=== PATIENT | male | born 1955 | race Caucasian/White ===

== ENCOUNTER → 2016-09-28 | Outpatient (REF) | payer OTHER | LOC: M LAB REF 11:11 | PROVIDERS: ATTEND Urology | DX: Z08 Encounter for follow-up examination after completed treatment for malignant neoplasm (principal); Z85.46 Personal history of malignant neoplasm of prostate ==

== ENCOUNTER → 2016-11-22 | Outpatient (REF) | payer OTHER | LOC: M LABDRAWC 11:58 | PROVIDERS: ATTEND Radiology Radiation Oncology | DX: C61 Malignant neoplasm of prostate (principal) ==

== ENCOUNTER → 2016-11-30 | Outpatient (CLI) | payer OTHER ==
--- NOTE | 2016-12-01 11:19 | RADONC ---
RADIATION ONCOLOGY FOLLOWUP NOTE: DATE: 11/30/2016 CHART NO: [id number] DIAGNOSIS: Prostate cancer STAGE: Stage II B,N4vM3D1, recurrent. ECOG PERFORMANCE STATUS: 0 Mr. 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 The patient presents today reporting that he is doing quite well with no complaints at this time related to his radiation therapy or disease. He is having no urinary or bowel difficulties. No bone pain. REVIEW OF SYSTEMS: The patient's review of systems is noncontributory. Denies nausea, vomiting, fevers, chills, night sweats, diplopia, headaches, anxiety or depression, anorexia, weight loss, visual disturbances, chest pain, urinary or bowel difficulties, bone pain, or neurological problems. PHYSICAL EXAMINATION: The patient is a well-developed, well-nourished male in no acute distress. HEENT exam is normocephalic, atraumatic. Extraocular movements are intact. There is no palpable cervical, supraclavicular, infraclavicular, axillary, or inguinal lymphadenopathy present. Lungs are clear to auscultation and percussion. Heart has a regular rate and rhythm. Abdomen is benign with no hepatosplenomegaly, masses, or tenderness. Rectal examination reveals a normal anal sphincter tone. His prostate bed is smooth with no evidence of nodularity. Skeletal examination reveals no tenderness to pressure or percussion of the bony skeleton. Extremities reveal no clubbing, cyanosis, or edema. Neurologic exam is grossly intact, as is the remainder of the physical examination. ASSESSMENT: The patient is clinically HIGINIO at this time and will be seen by us again in 6 months for further followup. He will also continue be followed by his other physicians as well. cc: Mayra Washburn DO *Tommie Jernigan MD *Dr. Chalo Díaz
== END ==
LOC: M ONCR 14:55
PROVIDERS: ATTEND Radiology Radiation Oncology
DX: C61 Malignant neoplasm of prostate (principal)

== ENCOUNTER → 2017-05-24 | Outpatient (REF) | payer OTHER | LOC: M LABDRAWC 11:32 | PROVIDERS: ATTEND Radiology Radiation Oncology | DX: C61 Malignant neoplasm of prostate (principal) ==

== ENCOUNTER → 2017-05-31 | Outpatient (CLI) | payer OTHER ==
--- NOTE | 2017-06-01 11:25 | RADONC ---
RADIATION ONCOLOGY FOLLOWUP NOTE DATE: 05/31/2017 CHART NUMBER: [id number] DIAGNOSIS: Prostate cancer. STAGE: IIB, [id number], recurrent. ECOG PERFORMANCE STATUS: 0 FOLLOWUP NOTE: Mr. Dean is a very pleasant 62-year-old white male with the diagnosis of a stage IIB, V7cT1N8, moderate to poorly differentiated Nancy score 7 (3-4) adenocarcinoma of the prostate with a biochemical failure who is presenting to us for routine followup visit 2-1/2 years post completion of external beam radiation therapy. The patient presents today reporting that he is doing quite well with no complaints at this time related to his radiation therapy or disease. He has no urinary or bowel difficulties, and no bone pain. REVIEW OF SYSTEMS: The patient's review of systems is noncontributory. He denies nausea, vomiting, fevers, chills, night sweats, diplopia, headaches, anxiety or depression, anorexia, weight loss, visual disturbances, chest pain, urinary or bowel difficulties, bone pain or neurological problems. PHYSICAL EXAMINATION PHYSICAL EXAMINATION: The patient is a well-developed, well-nourished male in no acute distress. HEENT exam is normocephalic, atraumatic. Extraocular movements are intact. There is no palpable cervical, supraclavicular, infraclavicular, axillary, or inguinal lymphadenopathy present. Lungs are clear to auscultation and percussion. Heart has a regular rate and rhythm. Abdomen is benign with no hepatosplenomegaly, masses, or tenderness. Rectal examination reveals a normal anal sphincter tone. His prostate bed is smooth with no evidence of nodularity. Skeletal examination reveals no tenderness to pressure or percussion of the bony skeleton. Extremities reveal no clubbing, cyanosis, or edema. Neurologic exam is grossly intact as is the remainder of the physical examination. ASSESSMENT: The patient is clinically HIGINIO at this time and will be seen by us again in 6 months for further followup. He will also continue to be followed by his other physicians as well.
== END ==
LOC: M ONCR 15:26
PROVIDERS: ATTEND Radiology Radiation Oncology
DX: C61 Malignant neoplasm of prostate (principal)

== ENCOUNTER → 2017-10-02 | Outpatient (REF) | payer OTHER ==
[2017-10-03 12:05] LABS: PROSTATIC SPECIFIC AG MONITOR < 0.01 NG/ML (< 4.0)
== END ==
LOC: M LABDRAWC 11:19
DX: Z85.46 Personal history of malignant neoplasm of prostate (principal)

== ENCOUNTER → 2018-02-22 | Outpatient (REF) | payer OTHER ==
[2018-02-22 16:44] LABS: PROSTATIC SPECIFIC AG MONITOR < 0.01 NG/ML (< 4.0)
== END ==
LOC: M LABDRAWC 16:12
DX: C61 Malignant neoplasm of prostate (principal)

== ENCOUNTER → 2018-02-28 | Outpatient (CLI) | payer BC, OTHER | LOC: M ONCR 14:07 | DX: C61 Malignant neoplasm of prostate (principal) | CPT/HCPCS: G0463 ==

== ENCOUNTER → 2018-03-07 | Outpatient (REF) | LOC: M SMT 11:15 | DX: Z00.00 Encounter for general adult medical examination without abnormal findings (principal) ==

== ENCOUNTER → 2018-09-17 | Outpatient (CLI) | payer BC, OTHER ==
--- NOTE | 2018-09-17 11:28 | REP ---
Clinical: Shoulder pain. Technique: AP and lateral views of the left humerus. Findings: Osseous structures, joint spaces, and surrounding soft tissues appear normal for age. No acute fracture dislocation. No overt arthritic degenerative changes or obvious osseous abnormality noted. Impression: Normal left humerus radiographs. Electronically Signed by Aj Lau MD 09/17/2018 11:20 A
--- NOTE | 2018-09-17 11:29 | REP ---
Clinical: Shoulder pain. Technique: Internal rotation, external rotation, and Y view of the left shoulder. Findings: Very mild age-related cortical irregularity at the acromioclavicular joint is appreciated. The glenohumeral joint is intact and normal. Subacromial space is normal. No periarticular calcifications or loose bodies identified. The surrounding soft tissues are unremarkable. Impression: Minimal age-related changes. Electronically Signed by Aj Lau MD 09/17/2018 11:21 A
== END ==
LOC: M WUC 10:58
PROVIDERS: ATTEND Internal Medicine
DX: M25.512 Pain in left shoulder (principal)

== ENCOUNTER → 2018-09-20 | Outpatient (REF) | payer OTHER | LOC: M LABDRAWC 10:31 | PROVIDERS: ATTEND Radiology Radiation Oncology | DX: C61 Malignant neoplasm of prostate (principal) ==

== ENCOUNTER → 2018-09-25 | Outpatient (CLI) | payer BC, OTHER ==
--- NOTE | 2018-09-27 10:56 | RADONC ---
RADIATION ONCOLOGY FOLLOWUP NOTE DATE: 09/25/2018 CHART NUMBER: [id number] DIAGNOSIS: Prostate cancer. STAGE: Stage II B, U7cE6D3, recurrent. ECOG PERFORMANCE STATUS: 0. FOLLOWUP NOTE: Mr. Dean is a very pleasant 63-year-old white male with the diagnosis of a stage II B, Y0bJ6N2, moderate to poorly differentiated Kath score 7 (3+4) adenocarcinoma of the prostate who is presenting to us today for routine followup visit almost 4 years post completion of external beam radiation therapy. The patient presents today reporting that generally he is doing quite well. He has no complaints at this time related to his radiation therapy or disease. He has no urinary or bowel difficulties and no bone pain. The patient's review of systems is noncontributory. Denies nausea, vomiting, fevers, chills, night sweats, diplopia, headaches, anxiety or depression, anorexia, weight loss, visual disturbances, chest pain, urinary or bowel difficulties, bone pain, or neurological problems. PHYSICAL EXAMINATION: The patient is a well-developed, well-nourished male in no acute distress. HEENT exam is normocephalic, atraumatic. Extraocular movements are intact. There is no palpable cervical, supraclavicular, infraclavicular, axillary, or inguinal lymphadenopathy present. Lungs are clear to auscultation and percussion. Heart has a regular rate and rhythm. Abdomen is benign with no hepatosplenomegaly, masses, or tenderness. Rectal examination reveals a normal anal sphincter tone. His prostate bed is smooth with no evidence of nodularity. Skeletal examination reveals no tenderness to pressure or percussion of the bony skeleton. Extremities reveal no clubbing, cyanosis, or edema. Neurologic exam is grossly intact, as is the remainder of the physical examination. ASSESSMENT The patient is clinically HIGINIO at this time. He is being followed closely by Dr. Serrato, who will continue to be following him. In light of this close followup by his urologist, I am discharging this patient except on a p.r.n. basis. The patient does have my office number, as well as cell phone number in case I can be of any assistance to him in the future. I have instructed him to contact me if he has any new symptoms or problems and he is aware that his urologist will be referring him back to us should any future reason for radiation be indicated. cc: MD Mayra Cobian, DO
== END ==
LOC: M ONCR 08:35
PROVIDERS: ATTEND Radiology Radiation Oncology
DX: C61 Malignant neoplasm of prostate (principal)

== ENCOUNTER → 2018-10-16 | Outpatient (REF) | payer OTHER | LOC: M LABDRAWC 11:03 | PROVIDERS: ATTEND Urology | DX: Z85.46 Personal history of malignant neoplasm of prostate (principal) ==

== ENCOUNTER → 2019-05-27 | Outpatient (REF) | payer OTHER ==
[2019-05-29 08:19] LABS: ANTINUCLEAR ANTIBODIES DIRECT Negative (Negative); CYCLIC CITRULLINATED PEPTIDE 6 units (0-19); Lyme Disease IgG/IgM Antibodie <0.91 ISR (0.00-0.90); Lyme Disease IgM Ab Quantitati <0.80 index (0.00-0.79)
== END ==
LOC: M LAB REF 12:20
PROVIDERS: ATTEND Internal Medicine
DX: M25.50 Pain in unspecified joint (principal)

== ENCOUNTER → 2019-12-16 | Outpatient (CLI) | payer OTHER | LOC: M WUC 09:51 | PROVIDERS: ATTEND Urology | DX: Z85.46 Personal history of malignant neoplasm of prostate (principal) ==

== ENCOUNTER → 2020-09-15 | Outpatient (REF) | payer OTHER ==
[~2020-09-15] MED LIST: ACET-838 PO; ACET650T3 PO; ASPI81TA26 PO; ATOR1TAB21 PO; BREO1INH3 INH; ECOT81TA5 PO; ESCI10TA16 PO; GOOD81CH2 PO; MONT10TA10 PO; PERC5TAB12 PO; PROAAER10 INH; THERTAB52 PO
[2020-09-15 13:50] LABS: INR 0.97; PROTHROMBIN TIME 13.1 SECONDS (12.5-14.3)
[2020-09-15 13:51] LABS: PARTIAL THROMBOPLASTIN TIME 32.1 SECONDS (24.2-38.5)
== END ==
LOC: M LAB REF 12:43
PROVIDERS: ATTEND Internal Medicine
DX: Z01.818 Encounter for other preprocedural examination (principal); M17.11 Unilateral primary osteoarthritis, right knee

== ENCOUNTER → 2020-09-16 | Outpatient (CLI) | payer OTHER | LOC: M LABSMTC 12:49 | PROVIDERS: ATTEND Anesthesiology | DX: Z01.812 Encounter for preprocedural laboratory examination (principal); Z20.822 Contact with and (suspected) exposure to COVID-19 ==

== ENCOUNTER → 2020-09-16 | Outpatient (CLI) | payer BC, OTHER ==
[2020-09-16 14:09] LABS: BASO % 0.3 % (0.0-1.0); EOS # 0.1 10^3/uL (0.0-0.5); EOS % 0.8 % (0.0-3.0); HEMATOCRIT 45.8 % (42.0-52.0); HEMOGLOBIN 15.3 g/dl (13.5-17.5); LYMPH # 1.9 10^3/uL (1.5-5.0); LYMPH % 20.9 % (24.0-44.0); MEAN CORPUSCULAR HEMOGLOBIN 31.2 pg (27.0-33.0); MEAN CORPUSCULAR HGB CONC 33.4 g/dl (32.0-36.5); MEAN CORPUSCULAR VOLUME 93.3 fl (80.0-96.0); MONO # 0.7 10^3/uL (0.0-0.8); MONO % 7.1 % (0.0-5.0); NEUTROPHILS # 6.5 10^3/uL (1.5-8.5); NEUTROPHILS % 70.4 % (36.0-66.0); PLATELET COUNT, AUTOMATED 234 10^3/uL (150-450); RED BLOOD COUNT 4.91 10^6/uL (4.30-6.10); WHITE BLOOD COUNT 9.2 10^3/uL (4.0-10.0)
[2020-09-16 14:24] LABS: INR 0.98; PROTHROMBIN TIME 13.2 SECONDS (12.5-14.3)
[2020-09-16 14:41] LABS: ALBUMIN 4.3 GM/DL (3.2-5.2); ALT/SGPT 39 U/L (12-78); BILIRUBIN,TOTAL 0.9 MG/DL (0.2-1.0); BLOOD UREA NITROGEN 19 MG/DL (7-18); CALCIUM LEVEL 9.7 MG/DL (8.8-10.2); CARBON DIOXIDE LEVEL 33 MEQ/L (21-32); CHLORIDE LEVEL 102 MEQ/L (98-107); CREATININE FOR GFR 0.87 MG/DL (0.70-1.30); GLOMERULAR FILTRATION RATE > 60.0 (>49); GLUCOSE, FASTING 133 MG/DL (70-100); POTASSIUM SERUM 4.2 MEQ/L (3.5-5.1); SODIUM LEVEL 140 MEQ/L (136-145)
[2020-09-16 14:53] LABS: ERYTHROCYTE SEDIMENTATION RATE 3 mm/hr (0-20)
--- NOTE | 2020-09-17 05:21 | REP ---
INDICATION: UNILATERAL PRIMARY OSTEOARTHRITIS RT KNEE COMPARISON: 05/23/2016 TECHNIQUE: PA and lateral. FINDINGS: The mediastinum and cardiac silhouette are stable and without acute process. The lung hinkle are clear and without acute consolidation, effusion, or pneumothorax. The skeletal structures are stable. IMPRESSION: Chronic stable changes. No acute cardiopulmonary process. <Electronically signed by Aj Lau > 09/17/20 [id number]
== END ==
LOC: M LAB 13:16
PROVIDERS: ATTEND Orthopaedic Surgery
DX: Z01.818 Encounter for other preprocedural examination (principal); M17.11 Unilateral primary osteoarthritis, right knee

== ENCOUNTER 2020-09-21 11:24 | Inpatient (IN) | payer BC, OTHER ==
[~2020-09-21] VITALS: Ht 175.3 cm; Wt 82.3 kg
[~2020-09-21 11:24] MED LIST changes: -ACET650T3 PO; +ACETAMINOPHEN 500 MG TAB PO ONE; -ASPI81TA26 PO; -ECOT81TA5 PO; +LR 1,000 ML IV ONE; +MIDAZOLAM INJ 2MG/2ML VIAL (J2250 PER 1MG) IV PRN; -MONT10TA10 PO; +MONT5TAB2 PO; -PERC5TAB12 PO; +ceFAZolin SOD 2 GM in IV 1 EA IV ONE; +fentaNYL 100 MCG/2 ML INJECTION (J3010) IV PRN
--- OUTSIDE RECORDS SUMMARY | 2020-09-21 11:30 | CCD ---
Continuity of Care Document (CCD) Created on: 09/17/2020 Omi Dean External Reference #: [id number] : [id number] Sex: Male Author Organization Unknown Address Unknown Phone Unavailable Care Team Providers Care Edi Analyst Name Role Phone Burke Rodriguez MD AUTM [phone] Angely Arias DO AUTM Unavailable Tommie Jernigan MD AUTM [phone] [facility] [phone] [facility] [phone] Problems Active Problems Provider Date Anxiety state Mike Washburn D.O. Onset: 2011 Pure hypercholesterolemia Mike Washburn D.O. Onset: 11/04/2011 Abnormal weight gain Mike Washburn D.O. Onset: 11/03 Electrocardiogram abnormal Mike Washburn D.O. Onset: 11/04/2011 Social History Type Date Description Comments Sex Unknown ETOH Use Rarely consumes alcohol Tobacco Use Start: Unknown Patient has never smoked Allergies, Adverse Reactions, Alerts Description No Known Drug Allergies Medications Active Medications SIG Qnty Indications Ordering Provide r Date Tylenol 8 Hour Arthritis Pain 650mg Tablets ER 1 by mouth as needed every 8 hours 90tabs Angely Arias DO 03/30/2020 Montelukast Sodium 10mg Tablets Take One Tablet By Mouth AT Bedtime 30tabs Angely Arias DO 05/27 Multivitamin Men 50+ Men 50+ Table ts 1 by mouth every day Angely Arias DO 11/20/2018 Escitalopram Oxalate 10mg Tablets Take One Tablet By Mouth Every Day 30tabs Angely Arias DO 2017 Breo Ellipta 200-25mcg/Inh Aerosol Inhale 1 puff By Mouth Once Daily 60units Angely Arias DO 03/22 Proair HFA 108(90Base) mcg/Act Aer osol 2 puffs four times a day as needed 25.5gm Angely Arias DO 05/13/2016 Azelastine HCL (Nasal) 0.15% Solut ion 2 sprays each nostril at night prn Unknown Aspirin [address] 1 po daily Unknown History Medications Glucosamine Chondroitin 1500 Complex Max imum Strength 1500Com Capsules one po bid. 60caps Angely Arias DO 03/30/2020 - 09/15/2020 Medications Administered in Office Medication SIG Qnty Indications Ordering Provider Date Immunization Adminstration,1 Vaccine/Tox oid Injection Angely Arias DO 03/30/2020 Immunizations CPT Code Status Date Vaccine Lot # U-Flu Given 04/28/2020 Influenza,Unspecified [id number] Given 03/30/2020 Pneumovax 23 [id number] Given 05/25/2012 Fluvirin Virus Vaccine [id number] Given 03/01/2012 Pneumovax 23 Vital Signs Date Vital Result Comment 09/15/2020 10:03am BP Systolic 144 mmHg RT Arm BP Diastolic 72 mmHg RT Arm Heart Rate 65 /min Height 68 inches 5'8" Weight 189.00 lb O2 Saturation Level with Exercise 96 % RM Air BMI (Body Mass Index) 28.7 kg/m2 03/30/2020 10:28am BP Systolic 130 mmHg BP Diastolic 70 mmHg Heart Rate 64 /min Height 68 inches 5'8" Weight 185.00 lb O2 % BldC Oximetry 96 % RM Air BMI (Body Mass Index) 28.1 kg/m2 Results Test Acquired Date Facility Test Result H/L Range Note Prothrombin Time/Inr 09/16/2020 [facility] [address] [place] [address] [phone] Prothrombin Time 13.2 seconds Normal 12.5-14.3 Inr 0.98 Normal 1 Comprehensive Metabolic Profil 09/16/2020 [facility] [address] [place] [address] [phone] Glucose, Fasting 133 mg/dL High 70-100 Blood Urea Nitrogen 19 mg/dL High 7-18 Creatinine For GFR 0.87 mg/dL Normal 0.70-1.30 Glomerular Filtration Rate > 60.0 Normal >49 2 Sodium Level 140 mEq/L Normal 136-145 Potassium Serum 4.2 mEq/L Normal 3.5-5.1 Chloride Level 102 mEq/L Normal 98-107 Carbon Dioxide Level 33 mEq/L High 21-32 Anion Gap 5 mEq/L Low 8-16 Calcium Level 9.7 mg/dL Normal 8.8-10.2 Ast/Sgot 20 U/L Normal 7-37 Alt/SGPT 39 U/L Normal 12-78 Alkaline Phosphatase 99 U/L Normal 45-117 Bilirubin,Total 0.9 mg/dL Normal 0.2-1.0 Total Protein 7.0 GM/DL Normal 6.4-8.2 Albumin 4.3 GM/DL Normal 3.2-5.2 Albumin/Globulin Ratio 1.6 Normal CBC With Differential 09/16/[address] [id number] [phone] White Blood Count 9.2 10 Normal 4.0-10.0 Red Blood Count 4.91 10 Normal 4.30-6.10 Hemoglobin 15.3 g/dL Normal 13.5-17.5 Hematocrit 45.8 % Normal 42.0-52.0 Mean Corpuscular Volume 93.3 fl Normal 80.0-96.0 Mean Corpuscular Hemoglobin 31.2 pg Normal 27.0-33.0 Mean Corpuscular HGB Conc 33.4 g/dL Normal 32.0-36.5 Red Cell Distribution Width 11.8 % Normal 11.5-14.5 Platelet Count, Automated 234 10 Normal 150-450 Neutrophils % 70.4 % High 36.0-66.0 Lymph % 20.9 % Low 24.0-44.0 Taney % 7.1 % High 0.0-5.0 Eos % 0.8 % Normal 0.0-3.0 Baso % 0.3 % Normal 0.0-1.0 Immature Granulocyte % 0.5 % Normal 0-3.0 Nucleated Red Blood Cell % 0.0 % Normal 0-0 Neutrophils # 6.5 10 Normal 1.5-8.5 Lymph # 1.9 10 Normal 1.5-5.0 Taney # 0.7 10 Normal 0.0-0.8 Eos # 0.1 10 Normal 0.0-0.5 Baso # 0.0 10 Normal 0.0-0.2 Laboratory test finding 09/16/2020 [facility] [address] [place] [address] [phone] Erythrocyte Sedimentation Rate 3 mm/hr Normal 0 -20 PT & Aptt 09/15/2020 [facility] [address] [place] [address] [phone] Prothrombin Time 13.1 seconds Normal 12.5-14.3 Inr 0.97 Normal 3 Partial Thromboplastin Time 32.1 seconds Normal 24.2-38.5 Complete Blood Count 09/15/2020 [facility] [employer] Hand: [place] [address] [phone] WBC 8.0 x10*3/UL 4.1 - 10.9 RBC 4.93 x10*6/UL 4.20 - 6.30 Hemoglobin 15.3 g/dL 12.0 - 18.0 Hematocrit 44.7 % 37.0 - 51.0 MCV 90.6 fL 80.0 - 97.0 MCH 31.0 pg 26.0 - 32.0 MCHC 34.2 g/dL 31.0 - 38.0 RDW 12.7 % 11.6 - 13.7 PLT 217 x10*3/UL 140 - 440 MPV 7.0 FL Low 7.8 - 11.0 Lymph % 17.5 % 10.0 - 58.5 Mid % 5.5 % 1.7 - 9.3 Neut % 77.0 % 37.0 - 92.0 Lymph # 1.4 x10*3/UL 0.6 - 4.1 Mid # 0.4 x10*3/UL 0.1 - 0.6 Neut # 6.2 x10*3/UL 2.0 - 7.8 Comprehensive Chem Profile 09/15/2020 [facility] [employer] Hand: [place] [address] [phone] Glucose 101 mg/dL High 74 - 99 4 BUN 12 mg/dL 7 - 18 Creatinine 0.7 mg/dL 0.6 - 1.3 Sodium 140 mEq/L 136 - 145 Potassium 4.6 mEq/L 3.5 - 5.1 Chloride 100 mEq/L 98 - 107 Carbon Dioxide 32 mEq/L 21 - 32 Calcium 9.2 mg/dL 8.5 - 10.1 Alk. Phosphatase 100 mg/dL 46 - 116 Total Bilirubin 1.4 mg/dL High 0.2 - 1.0 5 Ast (Sgot) 24 U/L 15 - 37 Alt (SGPT) 40 U/L 12 - 78 Albumin 4.3 g/dL 3.4 - 5.0 Total Protein 7.2 g/dL 6.4 - 8.2 A/G Ratio 1.48 CALC 1.00 - 1.90 GFR >= 60 mL/min >60 GFR >= 60 mL/min >60 6 Complete Blood Count 03/30/2020 [facility] [employer] [employer] App[employer]ice Hand: [place] [address] [phone] WBC 8.1 x10*3/UL 4.1 - 10.9 RBC 4.90 x10*6/UL 4.20 - 6.30 Hemoglobin 14.9 g/dL 12.0 - 18.0 Hematocrit 44.0 % 37.0 - 51.0 MCV 89.8 fL 80.0 - 97.0 MCH 30.4 pg 26.0 - 32.0 MCHC 33.9 g/dL 31.0 - 38.0 RDW 13.0 % 11.6 - 13.7 PLT 255 x10*3/UL 140 - 440 MPV 7.8 FL 7.8 - 11.0 Lymph % 18.6 % 10.0 - 58.5 Mid % 6.0 % 1.7 - 9.3 Neut % 75.4 % 37.0 - 92.0 Lymph # 1.5 x10*3/UL 0.6 - 4.1 Mid # 0.5 x10*3/UL 0.1 - 0.6 Neut # 6.1 x10*3/UL 2.0 - 7.8 Comprehensive Chem Profile 03/30/2020 [facility] [employer] Hand: [place] [address] [phone] Glucose 101 mg/dL High 74 - 99 7 BUN 17 mg/dL 7 - 18 Creatinine 0.8 mg/dL 0.6 - 1.3 Sodium 144 mEq/L 136 - 145 Potassium 4.3 mEq/L 3.5 - 5.1 Chloride 104 mEq/L 98 - 107 Carbon Dioxide 32 mEq/L 21 - 32 Calcium 9.1 mg/dL 8.5 - 10.1 Alk. Phosphatase 82 mg/dL 46 - 116 Total Bilirubin 0.6 mg/dL 0.2 - 1.0 Ast (Sgot) 18 U/L 15 - 37 Alt (SGPT) 28 U/L 12 - 78 Albumin 3.8 g/dL 3.4 - 5.0 Total Protein 7.2 g/dL 6.4 - 8.2 A/G Ratio 1.12 CALC 1.00 - 1.90 GFR >= 60 mL/min >60 GFR >= 60 mL/min >60 8 Lipid Profile 03/30/2020 [facility] , [employer] Hand: [place] [address] [phone] Cholesterol 206 mg/dL High 131 - 200 Triglycerides 185 mg/dL High 30 - 150 HDL Cholesterol 54 mg/dL 35 - 60 LDL (Calculated) 115 CALC 50 - 159 Laboratory test finding 03/30/2020 [facility] [employer] Hand: [place] [address] [phone] Thyroid Stimulating Hormone 0.79 uIU/mL 0.3 6 - 3.74 1 THERAPUTIC HUMAN INR VALUES INDICATIONS NORMAL RANGES PROPHYLAXIS/TREATMENT OF: VENOUS THROMBOSIS 2.0-3.0 PULMONARY EMBOLISM 2.0-3.0 PREVENTION OF SYSTEMIC EMBOLISM FROM: TISSUE HEART VALVES 2.0-3.0 ACUTE MYOCARDIAL INFARCTION 2.0-3.0 VALVULAR HEART DISEASE 2.0-3.0 ATRIAL FIBRILLATION 2.0-3.0 MECHANICAL VALVES(HIGH RISK) 2.5-3.5 RECURRENT MYOCARDIAL INFARCTION 2.5-3.5 2 Units are mL/min/1.73 m2 Chronic Kidney Disease Staging per NKF: Stage I & II GFR >=60 Normal to Mildly Decreased Stage III GFR 30-59 Moderately Decreased Stage IV GFR 15-29 Severely Decreased Stage V GFR <15 Very Little GFR Left ESRD GFR <15 on FINANCIAL SERVICES PROFESSIONAL 3 THERAPUTIC HUMAN INR VALUES INDICATIONS NORMAL RANGES PROPHYLAXIS/TREATMENT OF: VENOUS THROMBOSIS 2.0-3.0 PULMONARY EMBOLISM 2.0-3.0 PREVENTION OF SYSTEMIC EMBOLISM FROM: TISSUE HEART VALVES 2.0-3.0 ACUTE MYOCARDIAL INFARCTION 2.0-3.0 VALVULAR HEART DISEASE 2.0-3.0 ATRIAL FIBRILLATION 2.0-3.0 MECHANICAL VALVES(HIGH RISK) 2.5-3.5 RECURRENT MYOCARDIAL INFARCTION 2.5-3.5 4 100-125 mg/dL PRE-DIABET ES/FASTING >126 mg/dL DIABETES/FASTING 5 NOTE: RESULT VERIFIED. 6 CHRONIC KIDNEY DISEASE STAGI NG PER NKF STAGE I & II GFR >= 60 NORMAL TO MILDLY DECREASED STAGE III GFR 30-59 MODERATELY DECREASED STAGE IV GFR 15-29 SEVERELY DECREASED STAGE V GFR <15 VERY LITTLE GFR LEFT ESRD GFR <15 ON FINANCIAL SERVICES PROFESSIONAL 7 100-125 mg/dL PRE-DIABET ES/FASTING >126 mg/dL DIABETES/FASTING 8 CHRONIC KIDNEY DISEASE STAGI NG PER NKF STAGE I & II GFR >= 60 NORMAL TO MILDLY DECREASED STAGE III GFR 30-59 MODERATELY DECREASED STAGE IV GFR 15-29 SEVERELY DECREASED STAGE V GFR <15 VERY LITTLE GFR LEFT ESRD GFR <15 ON [employer]ANCIAL SERVICES PROFESSIONAL Procedures Date Code Description Status 03/30/2020 68413 Removal Skin Tags 1-15 Completed 12/12/2011 [id number] Colonoscopy Completed Medical Devices Description No Information Available Encounters Type Date Location Provider Dx Diagnosis Office Visit 03/30/2020 10:40a [facility] Angely Arias DO L91.8 Other hypertrophic disorders of the skin M17.11 Unilateral primary osteoarth ritis, right knee J45.40 Moderate persistent asthma, uncomplicated E78.5 Hyperlipidemia, unspecified F41.1 Generalized anxiety disorder Z23 Encounter for immunization Assessments Date Code Description Provider 03/30/2020 L91.8 Other hypertrophic disorders of the skin Angely Arias DO 03/30/2020 M17.11 Unilateral primary osteoarthriti s, right knee Angely Arias DO 03/30/2020 J45.40 Moderate persistent asthma, unco mplicated Angely Arias DO 03/30/2020 E78.5 Hyperlipidemia, unspecified Chano Arias DO 03/30/2020 F41.1 Generalized anxiety disorder Naif Arias DO 03/30/2020 Z23 Encounter for immunization Angely Arias DO Plan of Treatment Future Appointment(s):* 09/30/2020 8:20 am - Angely Arias DO at [facility] 03/30/2020 - Angely Arias DO* L91.8 Other hypertrophic disorders of the skin * M17.11 Unilateral primary osteoarthritis, right knee * J45.40 Moderate persistent asthma, uncomplicated * E78.5 Hyperlipidemia, unspecified * F41.1 Generalized anxiety disorder * Z23 Encounter for immunization * All * New Medication:* Tylenol 8 Hour Arthritis Pain 650 mg - 1 by mouth as needed every 8 hours * Glucosamine Chondroitin 1500 Complex Maximum Strength 1500 Com - one po bid. * Comments:* Will see him back for a follow up visit as scheduled Functional Status Description No Information Available Mental Status Description No Information Available Referrals Description No Information Available
--- OUTSIDE RECORDS SUMMARY | 2020-09-21 11:30 | CCD | Continuity of Care Document ---
Author Author Omi RODRIGUEZ MD Organization Unknown Address [address] [place] [address], [address] [address] Phone [phone] Care Team Providers Care Change Lead Name Role Phone Angely Arias DO [facility] [phone] Problems Description No Information Available Social History Type Date Description Comments Sex Unknown ETOH Use Occasionally consumes alcohol Tobacco Use Start: Unknown Denies Smoking Smoking Status Reviewed: 10/12/18 Denies Smoking Allergies, Adverse Reactions, Alerts Description No Known Drug Allergies Medications Active Medications SIG Qnty Indications Ordering Provide r Date Hibiclens 4% Liquid use in shower once daily for 5 days before surgery 1units Ronan roe MD 09/16/2020 Mupirocin 2% Ointment apply a pea sized amount to the nasal passages 3 times a day for 5 days prior to surgery 22gm Ronan Rodriguez MD 09/16/2020 Escitalopram Oxalate 10mg Tablets 1 by mouth every day Unknown Saline Nasal [place] 0.65% Solution 2 sprays to each nostril three times a day and as needed Unknown Aspirin 81 Low Dose 81mg Chewtabs Unknown Breo Ellipta 200-25mcg/Inh Aerosol Angely Arias, DO Montelukast Sodium 10mg Tablets Angely Arias, DO Atorvastatin Calcium 20mg Tablets Unknown Acetaminophen ER 650mg Tablets ER 1 by mouth 3-4 as needed for pain Unknown Immunizations Description No Information Available Vital Signs Date Vital Result Comment 06/15/2020 8:15am Body Temperature 96.5 F 04/28/2020 8:18am Height 68 inches 5'8" Weight 180.00 lb BMI (Body Mass Index) 27.4 kg/m2 Results Test Acquired Date Facility Test Result H/L Range Note Prothrombin Time/Inr 09/16/2020 [facility] entr [address] [place] [address] (315)- - Prothrombin Time 13.2 seconds Normal 12.5-14.3 Inr 0.98 Normal 1 Comprehensive Metabolic Profil 09/16/[address] [address] (315)- - Glucose, Fasting 133 mg/dL High 70-100 Blood [...] Ratio 1.6 Normal CBC With Differential 09/16/[address] [address] (315)- - White Blood Count 9.2 10 Normal 4.0-10.0 [...] 36.0-66.0 Lymph % 20.9 % Low 24.0-44.0 [place] % 7.1 % High 0.0-5.0 Eos % 0.8 % Normal 0.0-3.0 Baso % 0.3 % Normal 0.0-1.0 Immature Granulocyte % 0.5 % Normal 0-3.0 Nucleated Red Blood Cell % 0.0 % Normal 0-0 Neutrophils # 6.5 10 Normal 1.5-8.5 Lymph # 1.9 10 Normal 1.5-5.0 [place] # 0.7 10 Normal 0.0-0.8 Eos # 0.1 10 Normal 0.0-0.5 Baso # 0.0 10 Normal 0.0-0.2 Laboratory test finding 09/16/2020 [facility] [address] [place] [address] (315)- - Erythrocyte Sedimentation Rate 3 mm/hr Normal 0-20 Laboratory test finding 09/11/2020 [facility] [address] [place] [address] (315)- - Erythrocyte Sedimentation Rate <pending> Xray 09/11/2020 [facility] nter (315)- - Chest x-ray <pending> Order 09/11/2020 [facility]ter Surgery <pending> Order 09/11/2020 [facility] EKG <pending> 1 THERAPUTIC HUMAN INR VALUES INDICATIONS NORMAL [...] Little GFR Left ESRD GFR <15 on COPY CLERK Procedures Date Code Description Status 04/28/2020 17995 X-Ray Knee Ap & Lateral W/Obliqu es Three Views Completed 04/28/2020 53722 Inject/Drain Joint/Bursa Major C ompleted Medical Devices Description No Information Available Encounters Type Date Location Provider Dx Diagnosis Office Visit 06/15/2020 8:15a [facility] Rodriguez MD M1 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, right knee Office Visit 04/28/2020 8:00a [facility] Ronan Rodriguez MD M1 7.11 Unilateral primary osteoarthritis, right knee 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 Filippo Esparza MD Plan of Treatment Future Appointment(s):* 10/02/2020 3:00 pm - Mohini Thompson at [facility] * 09/21/2020 4:45 pm - Isabel Dolan PA-C at [facility] * 09/21/2020 4:45 pm - Ronan Rodriguez MD at Surgery 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
--- OUTSIDE RECORDS SUMMARY | 2020-09-21 11:31 | CCD | Continuity of Care Document ---
Author Author Omi CARNEY Organization Unknown Address [address] [facility] [address] [place] [address] Phone [phone] Care Team Providers Care Computer Installer Name Role Phone Burke Rodriguez MD [facility] [phone] Angely Carney DO [facility] Unavailable Tommie Jernigan MD [facility] [phone] Problems Active Problems Provider Date Anxiety state [...] as needed every 8 hours 90tabs Angely Carney DO 03/30/2020 Montelukast Sodium 10mg Tablets Take One Tablet By Mouth AT Bedtime 30tabs Angely Carney DO 05/27 Multivitamin Men 50+ Men 50+ Table ts 1 by mouth every day Angely Carney DO 11/20/2018 Escitalopram Oxalate 10mg Tablets Take One Tablet By Mouth Every Day 30tabs Angely Carney DO 2017 Breo Ellipta 200-25mcg/Inh Aerosol Inhale 1 puff By Mouth Once Daily 60units Angely Carney DO 03/22 Proair HFA 108(90Base) mcg/Act Aer osol 2 puffs four times a day as needed 25.5gm Angely Carney DO 05/13/2016 Azelastine HCL (Nasal) 0.15% Solut ion 2 sprays each nostril at night prn Unknown Aspirin [address] 1 po daily Unknown History Medications Glucosamine Chondroitin 1500 Complex Max imum Strength 1500Com Capsules one po bid. 60caps Angely Carney DO 03/30/2020 - 09/15/2020 Medications Administered in Office Medication SIG Qnty Indications Ordering Provider Date Immunization Adminstration,1 Vaccine/Tox oid Injection Angely Carney DO 03/30/2020 Immunizations CPT Code Status Date Vaccine Lot # U-Flu Given 04/28/2020 Influenza,Unspecified 59186 Given 03/30/2020 Pneumovax 23 [id number] Given 05/25/2012 Fluvirin Virus Vaccine 53726 Given 03/01/2012 Pneumovax 23 Vital Signs Date [...] Date Facility Test Result H/L Range Note Complete Blood Count 03/30/2020 [facility] Electronic Data Processing Auditor: Dr Ian [place], [place] [id number] [phone] WBC 8.1 x10*3/UL 4.1 - 10.9 RBC [...] 2.0 - 7.8 Comprehensive Chem Profile 03/30/2020 [facility] Data Processing Auditor: [place] [address] [phone] Glucose 101 mg/dL High 74 - 99 1 BUN 17 mg/dL 7 - 18 Creatinine [...] mL/min >60 GFR >= 60 mL/min >60 2 Lipid Profile 03/30/2020 [facility] , Electronic Data Processing Auditor: [place] [address] [phone] Cholesterol 206 mg/dL High 131 - 200 Triglycerides 185 mg/dL High 30 - 150 HDL Cholesterol 54 mg/dL 35 - 60 LDL (Calculated) 115 CALC 50 - 159 Laboratory test finding 03/30/2020 [facility] Electronic Data Processing Auditor: [place] [address] [phone] Thyroid Stimulating Hormone 0.79 uIU/mL 0.3 6 - 3.74 1 100-125 mg/dL PRE-DIABET ES/FASTING >126 mg/dL DIABETES/FASTING 2 CHRONIC KIDNEY DISEASE STAGI NG PER NKF STAGE I & II GFR >= 60 NORMAL TO MILDLY DECREASED STAGE III GFR 30-59 MODERATELY DECREASED STAGE IV GFR 15-29 SEVERELY DECREASED STAGE V GFR <15 VERY LITTLE GFR LEFT ESRD GFR <15 ON DOUBLE BOTTOM DRIVER Procedures Date Code Description Status 03/30/2020 64156 Removal Skin Tags 1-15 Completed 12/12/2011 [id number] Colonoscopy Completed Medical Devices Description No Information Available Encounters Type Date Location Provider Dx Diagnosis Office Visit 03/30/2020 10:40a [facility] Angely Carney DO L91.8 Other hypertrophic disorders of the skin M17.11 Unilateral primary osteoarth ritis, right knee J45.40 Moderate persistent asthma, uncomplicated E78.5 Hyperlipidemia, unspecified F41.1 Generalized anxiety disorder Z23 Encounter for immunization Assessments Date Code Description Provider 03/30/2020 L91.8 Other hypertrophic disorders of the skin Angely Carney DO 03/30/2020 M17.11 Unilateral primary osteoarthriti s, right knee Angely Carney DO 03/30/2020 J45.40 Moderate persistent asthma, unco mplicated Angely Carney DO 03/30/2020 E78.5 Hyperlipidemia, unspecified Chano Carney DO 03/30/2020 F41.1 Generalized anxiety disorder Naif Carney DO 03/30/2020 Z23 Encounter for immunization Angely Carney DO Plan of Treatment Future Appointment(s):* 09/30/2020 8:20 am - [facility] DO [facility] 03/30/2020 - Angely Carney DO* L91.8 Other hypertrophic disorders of the [...]
--- OUTSIDE RECORDS SUMMARY | 2020-09-21 11:31 | CCD ---
Continuity of Care Document (CCD) Created on: 06/25/2020 Omi Dean External Reference #: [id number] : 1955 Sex: Male Author Author Omi RODRIGUEZ MD Organization Unknown Address [address] [place] [address], [address] [address] Phone [phone] Care Team Providers Care Drafter Geophysical Name Role Phone Angely Arias DO [facility] [phone] Problems Description No Information Available Social History Type Date Description Comments Sex Unknown ETOH Use Occasionally consumes alcohol Tobacco Use Start: Unknown Denies Smoking Smoking Status Reviewed: 10/12/18 Denies Smoking Allergies, Adverse Reactions, Alerts Description No Known Drug Allergies Medications Active Medications SIG Qnty Indications Ordering Provide r Date Escitalopram Oxalate 10mg Tablets 1 by mouth every day Unknown Saline Nasal [place] 0.65% Solution 2 sprays to each nostril [...] BMI (Body Mass Index) 27.4 kg/m2 Results Description No Information Available Procedures Date Code Description Status 04/28/2020 57605 X-Ray Knee Ap & Lateral W/Obliqu es Three Views Completed 04/28/2020 52865 Inject/Drain Joint/Bursa Major C ompleted Medical Devices Description No Information Available Encounters Type Date Location Provider Dx Diagnosis Office Visit 06/15/2020 8:15a Ven[facility] Rodriguez MD M1 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, right knee Office Visit 04/28/2020 8:00a Venita Rodriguez MD M1 7.11 Unilateral primary osteoarthritis, right knee 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, right knee Assessments Date Code Description Provider 06/15/2020 M17.31 Unilateral post-traumatic osteoa rthritis, right knee Ronan Rodriguez MD 04/28/2020 M17.11 Unilateral primary osteoarthriti s, right knee Ronan Rodriguez MD 04/28/2020 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
--- OUTSIDE RECORDS SUMMARY | 2020-09-21 11:31 | CCD ---
Author Author [facility] Organization [facility] Address Unknown Phone Unavailable Care Team Providers Care Activities Leader Name Role Phone Hugo, Angely DO Unavailable Unavailable Hugo, Angely DO Unavailable Unavailable Hugo, Angely DO Unavailable Unavailable Hugo, Angely DO Unavailable Unavailable Hugo, Angely DO Unavailable Unavailable Hugo, Angely DO Unavailable Unavailable Hugo, Angely DO Unavailable Unavailable Hugo, Angely DO Unavailable Unavailable Hugo, Angely DO Unavailable Unavailable Hugo, Angely DO Unavailable Unavailable Hugo, Angely DO Unavailable Unavailable Hugo, Angely DO Unavailable Unavailable Hugo, Angely DO Unavailable Unavailable Hugo, Angely DO Unavailable Unavailable Hugo, Angely DO Unavailable Unavailable Hugo, Angely DO Unavailable Unavailable Hugo, Angely DO Unavailable Unavailable Hugo, Angely DO Unavailable Unavailable Hugo, Angely DO Unavailable Unavailable Hugo, Angely DO Unavailable Unavailable Hugo, Angely DO Unavailable Unavailable Hugo, Angely DO Unavailable Unavailable Hugo, Angely DO Unavailable Unavailable Hugo, Angely DO Unavailable Unavailable Hugo, Angely DO Unavailable Unavailable Hugo, Angely DO Unavailable Unavailable Hugo, Angely DO Unavailable Unavailable Hugo, Angely DO Unavailable Unavailable Hugo, Angely DO Unavailable Unavailable Hugo, Angely DO Unavailable Unavailable Hugo, Angely DO Unavailable Unavailable Hugo, Angely DO Unavailable Unavailable Hugo, Angely DO Unavailable Unavailable Hugo, Angely DO Unavailable Unavailable Hugo, Angely DO Unavailable Unavailable Hugo, Angely DO Unavailable Unavailable Hugo, Angely DO Unavailable Unavailable Hugo, Angely DO Unavailable Unavailable Hugo, Angely DO Unavailable Unavailable Hugo, Angely DO Unavailable Unavailable Hugo, Angely DO Unavailable Unavailable Hugo, Angely DO Unavailable Unavailable Hugo, Angely DO Unavailable Unavailable Hugo, Angely DO Unavailable Unavailable Hugo, Angely DO Unavailable Unavailable Hugo, Angely DO Unavailable Unavailable Hugo, Angely DO Unavailable Unavailable Hugo, Angely DO Unavailable Unavailable Hugo, Angely DO Unavailable Unavailable Hugo, Angely DO Unavailable Unavailable Hugo, Angely DO Unavailable Unavailable Hugo, Angely DO Unavailable Unavailable Hugo, Angely DO Unavailable Unavailable Hugo, Angely DO Unavailable Unavailable Hugo, Angely DO Unavailable Unavailable Hugo, Angely DO Unavailable Unavailable Hugo, Angely DO Unavailable Unavailable Hugo, Angely DO Unavailable Unavailable Hugo, Angely DO Unavailable Unavailable Hugo, Angely DO Unavailable Unavailable Hugo, Angely DO Unavailable Unavailable Hugo, Angely DO Unavailable Unavailable Hugo, Angely DO Unavailable Unavailable Hugo, Angely DO Unavailable Unavailable Hugo, Angely DO Unavailable Unavailable Hugo, Angely DO Unavailable Unavailable Hugo, Angely DO Unavailable Unavailable Hugo, Angely DO Unavailable Unavailable Hugo, Angely DO Unavailable Unavailable Hugo, Angely DO Unavailable Unavailable Hugo, Angely DO Unavailable Unavailable Hugo, Angely DO Unavailable Unavailable Julio SYED MD Unavailable Unavailable Julio SYED MD Unavailable Unavailable Julio SYED MD Unavailable Unavailable Julio SYED MD Unavailable Unavailable Julio SYED MD Unavailable Unavailable Julio SYED MD Unavailable Unavailable Julio SYED MD Unavailable Unavailable Julio SYED MD Unavailable Unavailable Julio SYED MD Unavailable Unavailable Julio SYED MD Unavailable Unavailable Julio SYED MD Unavailable Unavailable Julio SYED MD Unavailable Unavailable Julio SYED MD Unavailable Unavailable Julio SYED MD Unavailable Unavailable Julio SYED MD Unavailable Unavailable Julio SYED MD Unavailable Unavailable Julio SYED MD Unavailable Unavailable Julio SYED MD Unavailable Unavailable Julio SYED MD Unavailable Unavailable Julio SYED MD Unavailable Unavailable MADISSOOJulio MD Unavailable Unavailable MADISSOOJulio MD Unavailable Unavailable MADISSOOJulio MD Unavailable Unavailable MADISSOOJulio MD Unavailable Unavailable MADISSOOJulio MD Unavailable Unavailable MADISSOO, Julio BUCK MD Unavailable Unavailable MADISSOOJulio MD Unavailable Unavailable MADISSOOJulio MD Unavailable Unavailable MADISSOOJulio MD Unavailable Unavailable MADISSOO, Julio BUCK MD Unavailable Unavailable MADISSOO, Julio BUCK MD Unavailable Unavailable MADISSOO, Julio BUCK MD Unavailable Unavailable MADISSOO, Julio BUCK MD Unavailable Unavailable MADISSOO, Julio BUCK MD Unavailable Unavailable MADISSOO, Julio BUCK MD Unavailable Unavailable MADISSOO, Julio BUCK MD Unavailable Unavailable MADISSOO, Julio BUCK MD Unavailable Unavailable MADISSOO, Julio BUCK MD Unavailable Unavailable MADISSOO, Julio BUCK MD Unavailable Unavailable MADISSOO, Julio BUCK MD Unavailable Unavailable MADISSOOJulio MD Unavailable Unavailable MADISSOOJulio MD Unavailable Unavailable MADISSOOuJlio MD Unavailable Unavailable MADISSOOJulio MD Unavailable Unavailable MADISSOOJulio MD Unavailable Unavailable MADISSOOJulio MD Unavailable Unavailable MADISSOOJulio MD Unavailable Unavailable MADISSOOJulio MD Unavailable Unavailable MADISSOOJulio MD Unavailable Unavailable MADISSOOJulio MD Unavailable Unavailable MADCANDIOOJulio MD Unavailable Unavailable MADCANDIOOJulio MD Unavailable Unavailable FAUSTOOOJulio MD Unavailable Unavailable MADCANDIOOJulio MD Unavailable Unavailable FAUSTOOOJulio MD Unavailable Unavailable MADCANDIOOJulio MD Unavailable Unavailable MADCANDIOOJulio MD Unavailable Unavailable MADCANDIOOJulio MD Unavailable Unavailable MADCANDIOOJulio MD Unavailable Unavailable MADCANDIOOJulio MD Unavailable Unavailable MADCANDIOOJulio MD Unavailable Unavailable MADCANDIOOJulio MD Unavailable Unavailable MADCANDIOOJulio MD Unavailable Unavailable MADCANDIOO, Julio BUCK MD Unavailable Unavailable MADCANDIOOJulio MD Unavailable Unavailable MADCANDIOOJulio MD Unavailable Unavailable MADCANDIOOJulio MD Unavailable Unavailable MADISSOOJulio MD Unavailable Unavailable MADISSOO, Julio BUCK MD Unavailable Unavailable MADISSOO, Julio BUCK MD Unavailable Unavailable MADISSOO, Julio BUCK MD Unavailable Unavailable MADISSOO, Julio BUCK MD Unavailable Unavailable MADISSOO, Julio BCUK MD Unavailable Unavailable MADISSOO, Julio BUCK MD Unavailable Unavailable MADISSOO, Julio BUCK MD Unavailable Unavailable MADISSOO, Julio BUCK MD Unavailable Unavailable MADCANDIOO, Julio BUCK MD Unavailable Unavailable FAUSTOOO, Julio BUCK MD Unavailable Unavailable FAUSTOOO, Julio BUCK MD Unavailable Unavailable FAUSTOOO, Julio BUCK MD Unavailable Unavailable FAUSTOOO, Julio BUCK MD Unavailable Unavailable Vaneenenaam, Rosendo Okeefe MD Unavailable Unavailable VaneenenaamRosendo MD Unavailable Unavailable VanRosendo fernández MD Unavailable Unavailable Vancatyam, Rosendo Okeefe MD Unavailable Unavailable VaneenerwinamRosendo MD Unavailable Unavailable Vancatyam, Rosendo Okeefe MD Unavailable Unavailable Vanjolene, Rosendo Okeefe MD Unavailable Unavailable Vancatyam, Rosendo Okeefe MD Unavailable Unavailable VanRosendo fernández MD Unavailable Unavailable VanRosendo fernández MD Unavailable Unavailable VanRosendo fernández MD Unavailable Unavailable Vaneenerwinam, Rosendo Okeefe MD Unavailable Unavailable VancatyamRosendo MD Unavailable Unavailable VaneenerwinamRosendo MD Unavailable Unavailable VanRosendo fernández MD Unavailable Unavailable VanRosendo fernández MD Unavailable Unavailable VanRosendo fernández MD Unavailable Unavailable VanRosendo fernández MD Unavailable Unavailable VanRosendo fernández MD Unavailable Unavailable VanRosendo fernández MD Unavailable Unavailable VanRosendo fernández MD Unavailable Unavailable VanRosendo fernández MD Unavailable Unavailable VanRosendo fernández MD Unavailable Unavailable VanRosendo fernández MD Unavailable Unavailable VanRosendo fernández MD Unavailable Unavailable VanRosendo fernández MD Unavailable Unavailable VancatyamRosendo MD Unavailable Unavailable VanRosendo fernández MD Unavailable Unavailable VanRosendo fernández MD Unavailable Unavailable VanRosendo fernández MD Unavailable Unavailable VanRosendo fernández MD Unavailable Unavailable VancatyamRosendo MD Unavailable Unavailable VancatyamRosendo MD Unavailable Unavailable VancatyamRosendo MD Unavailable Unavailable VanRosendo fernández MD Unavailable Unavailable VanRosendo fernández MD Unavailable Unavailable VancatyamRosendo MD Unavailable Unavailable VancatyamRosendo MD Unavailable Unavailable VaneenerwinamRosendo MD Unavailable Unavailable Vaneenenaam, Rosendo Okeefe MD Unavailable Unavailable Vaneenenaam, Rosendo Okeefe MD Unavailable Unavailable Vaneenenaam, Rosendo Okeefe MD Unavailable Unavailable Lio, N Alvarez TRANSPLANTER ORCHID Unavailable Unavailable Lio, N Alvarez TRANSPLANTER ORCHID Unavailable Unavailable Lio, N Alvarez TRANSPLANTER ORCHID Unavailable Unavailable Van Vleck, N Alvarez TRANSPLANTER ORCHID Unavailable Unavailable Van Vleck, N Alvarez TRANSPLANTER ORCHID Unavailable Unavailable Van Vleck, N Alvarez TRANSPLANTER ORCHID Unavailable Unavailable Lio, N Alvarez TRANSPLANTER ORCHID Unavailable Unavailable Lio, N Alvarez TRANSPLANTER ORCHID Unavailable Unavailable Van Vleck, N Alvarez TRANSPLANTER ORCHID Unavailable Unavailable Van Vleck, N Alvarez TRANSPLANTER ORCHID Unavailable Unavailable Lio, N Alvarez TRANSPLANTER ORCHID Unavailable Unavailable Lio, N Alvarez TRANSPLANTER ORCHID Unavailable Unavailable Lio, N Alvarez TRANSPLANTER ORCHID Unavailable Unavailable Van Vleck, N Alvarez TRANSPLANTER ORCHID Unavailable Unavailable Lio, N Alvarez TRANSPLANTER ORCHID Unavailable Unavailable Van Vleck, N Alvarez TRANSPLANTER ORCHID Unavailable Unavailable Van Vleck, N Alvarez TRANSPLANTER ORCHID Unavailable Unavailable Lio, N Alvarez TRANSPLANTER ORCHID Unavailable Unavailable Van Vleck, N Alvarez TRANSPLANTER ORCHID Unavailable Unavailable Van Vleck, N Alvarez TRANSPLANTER ORCHID Unavailable Unavailable Van Vleck, N Alvarez TRANSPLANTER ORCHID Unavailable Unavailable Lio, N Alvarez TRANSPLANTER ORCHID Unavailable Unavailable Van Vleck, N Alvarez TRANSPLANTER ORCHID Unavailable Unavailable Lio, N Alvarez TRANSPLANTER ORCHID Unavailable Unavailable Van Vleck, N Alvarez TRANSPLANTER ORCHID Unavailable Unavailable Van Vleck, N Alvarez TRANSPLANTER ORCHID Unavailable Unavailable Van Vleck, N Alvarez TRANSPLANTER ORCHID Unavailable Unavailable Van Vleck, N Alvarez TRANSPLANTER ORCHID Unavailable Unavailable Van Vleck, N Alvarez TRANSPLANTER ORCHID Unavailable Unavailable Van Vleck, N Alvarez TRANSPLANTER ORCHID Unavailable Unavailable Lio, N Alvarez TRANSPLANTER ORCHID Unavailable Unavailable [facility], SPARISIAN Unavailable Unavailable Re-disclosure Warning The records that you are about to access may contain information from federally-assisted alcohol or drug abuse programs. If such information is present, then the following federally mandated warning applies: This information has been disclosed to you from records protected by federal confidentiality rules (42 CFR part 2). The federal rules prohibit you from making any further disclosure of this information unless further disclosure is expressly permitted by the written consent of the person to whom it pertains or as otherwise permitted by 42 CFR part 2. A general authorization for the release of medical or other information is NOT sufficient for this purpose. The Federal rules restrict any use of the information to criminally investigate or prosecute any alcohol or drug abuse patient.The records that you are about to access may contain highly sensitive health information, the redisclosure of which is protected by Article 27-F of the [place] [facility] [place] [facility] law. If you continue you may have access to information: Regarding HIV / AIDS; Provided by facilities licensed or operated by the [facility] Office of Mental Health; or Provided by the [facility] Office for People With Developmental Disabilities. If such information is present, then the following [facility] mandated warning applies: This information has been disclosed to you from confidential records which are protected by state law. State law prohibits you from making any further disclosure of this information without the specific written consent of the person to whom it pertains, or as otherwise permitted by law. Any unauthorized further disclosure in violation of state law may result in a fine or nursing home sentence or both. A general authorization for the release of medical or other information is NOT sufficient authorization for further disc losure. Family History Family Member Name Family Member Gender Family Member Status Date o f Status Description Data Source(s) Unknown Male Problem [facility] ([facility]) Unknown Male Problem [facility] ([facility] ) Unknown Male Problem [facility] Unknown Unknown Problem [facility] ([facility] [place]) Encounters Encounter Providers Location Date Indications Data Source(s ) Outpatient Attender: Alvarez Vaca NP [email or web address] [id number] 12:00:00 AM EST - 07/20/2020 09:30:19 AM EST [facility] Outpatient Referrer: Alvarez Vaca NP [email or web address] 07/02/2020 12 :00:00 AM EST [facility] Outpatient Attender: Rosendo Rodriguez MD Physical Therap y 06/15/2020 08:15:00 AM EDT [facility] ([facility]) Outpatient Attender: Alvarez Vaca NP [email or web address] [id number] 09:35:23 AM EDT - 05/18/2020 10:08:07 AM EDT [facility] Outpatient Attender: Rosendo Rodriguez MD Physical Therap y 04/28/2020 08:00:00 AM EDT [facility] ([facility]) Outpatient Attender: JUVENTINO MÁRQUEZ 04/23/2020 12:02:[address] [facility] Outpatient Attender: Angely Hugo Kramer 03/30 10:40:00 AM EDT [facility] ([facility] ) Outpatient Attender: JUVENTINO [facility] 01/28/2020 07:54:[address] [facility] Outpatient Attender: [facility] 01/18/2020 12:16:[address] [facility] Outpatient Attender: HEBER Gold/ Hannah kuhn 12/24/2019 10:50:00 AM EDT [facility] ([facility]) Outpatient Attender: ABIGAILALEJANDRO [facility] 08/23/2019 09:01:[address] [facility] Outpatient Attender: ABIGAILALEJANDRO [facility] 08/23/2019 10:42:[address] [facility] Immunizations Vaccine Date Status Description Data Source(s) This CVX code allows reporting of a vacc ination when formulation is unknown (for example, when recording a Influenza vaccination when noted on a vaccination card) 04/28/2020 02:16:00 PM EDT completed MEDEN T ([facility]) pneumococcal polysaccharide PPV23 03/30/2020 11:05:00 AM EDT comple isabell MEDENT ([facility]) Medications Medication Brand Name Start Date Product Form Dose Route Admi nistrative Instructions Pharmacy Instructions Status Indications Reaction Description Data Source(s) chlorhexidine gluconate 40 MG/ML Medicated Liquid Soap [Hibi clens] Hibiclens 09/16/2020 12:00:00 AM EST active [facility] ([facility]) 2 % 09/16/2020 12:00:00 AM EST ointment 22 APPLY A PEA SIZED AMOUNT TO THE NASAL PASSAGES THREE TIMES A DAY FOR 5 DAYS PRIOR TO SURGERY APPLY A PEA SIZED AMOUNT TO THE NASAL PASSAGES THREE TIMES A DAY FOR 5 DAYS PRIOR TO SURGERY SOLD: 09/18/2020 [facility] Mupirocin 0.02 MG/MG Topical Ointment Mupirocin 09/16/2020 12:00:00 AM EST active [facility] ([facility]) 90 mcg/actuation 08/10/2020 12:00:00 AM EST HFA aerosol inha ler 8 INHALE TWO PUFFS BY MOUTH FOUR TIMES A DAY NEEDED INHALE TWO PUFFS BY MOUTH FOUR TIMES A DAY NEEDED SOLD: 08/12/2020 [facility] 90 mcg/actuation 08/10/2020 12:00:00 AM EST HFA aerosol inha ler 8 INHALE TWO PUFFS BY MOUTH FOUR TIMES A DAY NEEDED INHALE TWO PUFFS BY MOUTH FOUR TIMES A DAY NEEDED SOLD: 09/06/2020 [facility] 650 mg 08/04/2020 12:00:00 AM EST tablet extended release 90 TAKE ONE TABLET BY MOUTH EVERY 8 HOURS NEEDED TAKE ONE TABLET BY MOUTH EVERY 8 HOURS A S NEEDED SOLD: 09/06/2020 [facility] 650 mg 08/04/2020 12:00:00 AM EST tablet extended release 90 TAKE ONE TABLET BY MOUTH EVERY 8 HOURS NEEDED TAKE ONE TABLET BY MOUTH EVERY 8 HOURS A S NEEDED SOLD: 08/07/2020 [facility] 200-25 mcg/dose 07/06/2020 12:00:00 AM EST blister with mandi ce 60 INHALE 1 PUFF BY MOUTH ONCE DAILY INHALE 1 PUFF BY MOUTH ONCE DAILY SOLD: 07/08/2020 [facility] 200-25 mcg/dose 07/06/2020 12:00:00 AM EST blister with mandi ce 60 INHALE 1 PUFF BY MOUTH ONCE DAILY INHALE 1 PUFF BY MOUTH ONCE DAILY SOLD: 08/07/2020 [facility] 200-25 mcg/dose 07/06/2020 12:00:00 AM EST blister with mandi ce 60 INHALE 1 PUFF BY MOUTH ONCE DAILY INHALE 1 PUFF BY MOUTH ONCE DAILY SOLD: 09/06/2020 [facility] montelukast 10 MG Oral Tablet MONTELUKAST SODIUM 07/06/2020 12:0 0:00 AM EST tablet 30 TAKE ONE TABLET BY MOUTH AT BEDT SHIRIN TAKE ONE TABLET BY MOUTH AT BEDTIME SOLD: 07/08/2020 [facility] montelukast 10 MG Oral Tablet MONTELUKAST SODIUM 07/06/2020 12:0 0:00 AM EST tablet 30 TAKE ONE TABLET BY MOUTH AT BEDT SHIRIN TAKE ONE TABLET BY MOUTH AT BEDTIME SOLD: 09/06/2020 [facility] montelukast 10 MG Oral Tablet MONTELUKAST SODIUM 07/06/2020 12:0 0:00 AM EST tablet 30 TAKE ONE TABLET BY MOUTH AT BEDT SHIRIN TAKE ONE TABLET BY MOUTH AT BEDTIME SOLD: 08/07/2020 [facility] atorvastatin 20 MG Oral Tablet ATORVASTATIN CALCIUM 05/18/2020 1 2:00:00 AM EDT tablet 90 TAKE ONE TABLET BY MOUTH EVERY D AY TAKE ONE TABLET BY MOUTH EVERY DAY SOLD: 05/19/2020 [facility] atorvastatin 20 MG Oral Tablet ATORVASTATIN CALCIUM 05/18/2020 1 2:00:00 AM EDT tablet 90 TAKE ONE TABLET BY MOUTH EVERY D AY TAKE ONE TABLET BY MOUTH EVERY DAY SOLD: 08/16/2020 [facility] atorvastatin 20 MG Oral Tablet atorvastatin (LIPITOR) 20 MG tablet atorvastatin (LIPITOR) 20 MG tablet 05/18/2020 12:00:00 AM EDT 20 mg Oral active Take 1 tablet (20 mg total) by mouth daily [facility] 8 HR Acetaminophen 650 MG Extended Relea se Oral Tablet [Mapap] MAPAP ARTHRITIS PAIN 650 MG CR tablet MAPAP ARTHRITIS PAIN 650 MG CR tablet 04/29/2020 12:00 :00 AM EDT 650 mg Oral active Take 650 mg by mo [facility] as needed [facility] 30 ACTUAT fluticasone furoate 0.2 MG/ACT UAT / vilanterol 0.025 MG/ACTUAT Dry Powder Inhaler [Breo] BREO ELLIPTA 200-25 MCG/INH AEPB BREO ELLIPTA 200-25 MCG/INH AEPB 04/28/2020 12:00:00 AM EDT active As directed [facility] 650 mg 03/30/2020 12:00:00 AM EDT tablet extended release 90 TAKE ONE TABLET BY MOUTH EVERY 8 HOURS NEEDED TAKE ONE TABLET BY MOUTH EVERY 8 HOURS A S NEEDED SOLD: 06/07/2020 [facility] 650 mg 03/30/2020 12:00:00 AM EDT tablet extended release 90 TAKE ONE TABLET BY MOUTH EVERY 8 HOURS NEEDED TAKE ONE TABLET BY MOUTH EVERY 8 HOURS A S NEEDED SOLD: 07/08/2020 [facility] Glucosamine Chondroitin 1500 Complex Maximum Strength 03/30/2020 12:00:00 AM EDT ORAL completed [facility] ([facility]) 650 mg 03/30/2020 12:00:00 AM EDT tablet extended release 90 TAKE ONE TABLET BY MOUTH EVERY 8 HOURS NEEDED TAKE ONE TABLET BY MOUTH EVERY 8 HOURS A S NEEDED SOLD: 05/07/2020 [facility] 8 HR Acetaminophen 650 MG Extended Release Oral Tablet [Tylenol] Tylenol 8 Hour Arthritis Pain 03/30/2020 12:00:00 AM EDT ORAL active [facility] ([facility]) Immunization Adminstration,1 Vaccine/Toxoid 03/30/2020 12:00 :00 AM EDT completed [facility] ([facility]) Medication administered onsite 650 mg 03/30/2020 12:00:00 AM EDT tablet extended release 90 TAKE ONE TABLET BY MOUTH EVERY 8 HOURS NEEDED TAKE ONE TABLET BY MOUTH EVERY 8 HOURS A S NEEDED SOLD: 04/01/2020 [facility] Escitalopram 10 MG Oral Tablet ESCITALOPRAM OXALATE 01/30/2020 1 2:00:00 AM EDT tablet 30 TAKE ONE TABLET BY MOUTH EVERY D AY TAKE ONE TABLET BY MOUTH EVERY DAY SOLD: 09/16/2020 [facility] Escitalopram 10 MG Oral Tablet ESCITALOPRAM OXALATE 01/30/2020 1 2:00:00 AM EDT tablet 30 TAKE ONE TABLET BY MOUTH EVERY D AY TAKE ONE TABLET BY MOUTH EVERY DAY SOLD: 02/09/2020 [facility] Escitalopram 10 MG Oral Tablet ESCITALOPRAM OXALATE 01/30/2020 1 2:00:00 AM EDT tablet 30 TAKE ONE TABLET BY MOUTH EVERY D AY TAKE ONE TABLET BY MOUTH EVERY DAY SOLD: 03/10/2020 [facility] Escitalopram 10 MG Oral Tablet ESCITALOPRAM OXALATE 01/30/2020 1 2:00:00 AM EDT tablet 30 TAKE ONE TABLET BY MOUTH EVERY D AY TAKE ONE TABLET BY MOUTH EVERY DAY SOLD: 07/15/2020 [facility] Escitalopram 10 MG Oral Tablet ESCITALOPRAM OXALATE 01/30/2020 1 2:00:00 AM EDT tablet 30 TAKE ONE TABLET BY MOUTH EVERY D AY TAKE ONE TABLET BY MOUTH EVERY DAY SOLD: 04/12/2020 [facility] Escitalopram 10 MG Oral Tablet ESCITALOPRAM OXALATE 01/30/2020 1 2:00:00 AM EDT tablet 30 TAKE ONE TABLET BY MOUTH EVERY D AY TAKE ONE TABLET BY MOUTH EVERY DAY SOLD: 08/16/2020 [facility] Escitalopram 10 MG Oral Tablet ESCITALOPRAM OXALATE 01/30/2020 1 2:00:00 AM EDT tablet 30 TAKE ONE TABLET BY MOUTH EVERY D AY TAKE ONE TABLET BY MOUTH EVERY DAY SOLD: 06/14/2020 [facility] Escitalopram 10 MG Oral Tablet ESCITALOPRAM OXALATE 01/30/2020 1 2:00:00 AM EDT tablet 30 TAKE ONE TABLET BY MOUTH EVERY D AY TAKE ONE TABLET BY MOUTH EVERY DAY SOLD: 05/14/2020 [facility] Prednisone 10 MG Oral Tablet Prednisone 12/10/2019 12:00:00 AM EDT ORAL active [facility] ([facility] ) 10 mg 12/10/2019 12:00:00 AM EDT tablet 40 TAKE FOUR TABLETS BY MOUTH EVERY DAY FOR 4 DAYS, THEN TAKE THREE TABLETS BY MOUTH EVERY DAY FOR 4 DAYS, THEN TAKE TWO TABLETS BY MOUTH EVERY DAY FOR 4 DAYS, THEN TAKE ONE TABLET BY MOUTH EVERY DAY FOR 4 DAYS THEN STOP TAKE FOUR TABLETS BY MOUTH EVERY DAY FOR 4 DAYS, THEN TAKE THREE TABLETS BY MOUTH EVERY DAY FOR 4 DAYS, THEN TAKE TWO TABLETS BY MOUTH EVERY DAY FOR 4 DAYS, THEN TAKE ONE TABLET BY MOUTH EVERY DAY FOR 4 DAYS THEN STOP SOLD: 12/10/2019 [facility] montelukast 10 MG Oral Tablet MONTELUKAST SODIUM 12/03/2019 12:0 0:00 AM EDT tablet 30 TAKE ONE TABLET BY MOUTH AT BEDT SHIRIN TAKE ONE TABLET BY MOUTH AT BEDTIME SOLD: 12/05/2019 [facility] montelukast 10 MG Oral Tablet MONTELUKAST SODIUM 12/03/2019 12:0 0:00 AM EDT tablet 30 TAKE ONE TABLET BY MOUTH AT BEDT SHIRIN TAKE ONE TABLET BY MOUTH AT BEDTIME SOLD: 06/07/2020 [facility] 200-25 mcg/dose 12/03/2019 12:00:00 AM EDT blister with mandi ce 60 INHALE 1 PUFF BY MOUTH ONCE DAILY INHALE 1 PUFF BY MOUTH ONCE DAILY SOLD: 12/05/2019 [facility] 200-25 mcg/dose 12/03/2019 12:00:00 AM EDT blister with mandi ce 60 INHALE 1 PUFF BY MOUTH ONCE DAILY INHALE 1 PUFF BY MOUTH ONCE DAILY SOLD: 03/02/2020 [facility] montelukast 10 MG Oral Tablet MONTELUKAST SODIUM 12/03/2019 12:0 0:00 AM EDT tablet 30 TAKE ONE TABLET BY MOUTH AT BEDT SHIRIN TAKE ONE TABLET BY MOUTH AT BEDTIME SOLD: 01/30/2020 [facility] 200-25 mcg/dose 12/03/2019 12:00:00 AM EDT blister with mandi ce 60 INHALE 1 PUFF BY MOUTH ONCE DAILY INHALE 1 PUFF BY MOUTH ONCE DAILY SOLD: 05/07/2020 [facility] 200-25 mcg/dose 12/03/2019 12:00:00 AM EDT blister with mandi ce 60 INHALE 1 PUFF BY MOUTH ONCE DAILY INHALE 1 PUFF BY MOUTH ONCE DAILY SOLD: 04/01/2020 [facility] 200-25 mcg/dose 12/03/2019 12:00:00 AM EDT blister with mandi ce 60 INHALE 1 PUFF BY MOUTH ONCE DAILY INHALE 1 PUFF BY MOUTH ONCE DAILY SOLD: 01/02/2020 [facility] 200-25 mcg/dose 12/03/2019 12:00:00 AM EDT blister with mandi ce 60 INHALE 1 PUFF BY MOUTH ONCE DAILY INHALE 1 PUFF BY MOUTH ONCE DAILY SOLD: 01/30/2020 [facility] montelukast 10 MG Oral Tablet MONTELUKAST SODIUM 12/03/2019 12:0 0:00 AM EDT tablet 30 TAKE ONE TABLET BY MOUTH AT BEDT SHIRIN TAKE ONE TABLET BY MOUTH AT BEDTIME SOLD: 04/01/2020 [facility] montelukast 10 MG Oral Tablet MONTELUKAST SODIUM 12/03/2019 12:0 0:00 AM EDT tablet 30 TAKE ONE TABLET BY MOUTH AT BEDT SHIRIN TAKE ONE TABLET BY MOUTH AT BEDTIME SOLD: 01/02/2020 [facility] montelukast 10 MG Oral Tablet MONTELUKAST SODIUM 12/03/2019 12:0 0:00 AM EDT tablet 30 TAKE ONE TABLET BY MOUTH AT BEDT SHIRIN TAKE ONE TABLET BY MOUTH AT BEDTIME SOLD: 03/02/2020 [facility] montelukast 10 MG Oral Tablet MONTELUKAST SODIUM 12/03/2019 12:0 0:00 AM EDT tablet 30 TAKE ONE TABLET BY MOUTH AT BEDT SHIRIN TAKE ONE TABLET BY MOUTH AT BEDTIME SOLD: 05/07/2020 [facility] 200-25 mcg/dose 12/03/2019 12:00:00 AM EDT blister with mandi ce 60 INHALE 1 PUFF BY MOUTH ONCE DAILY INHALE 1 PUFF BY MOUTH ONCE DAILY SOLD: 06/07/2020 [facility] 1-0.05 % 08/20/2019 12:00:00 AM EST cream 45 APPLY NEEDED THREE TIMES A DAY APPLY NEEDED THREE TIMES A DAY SOLD: 08/26/2019 [facility] 1-0.05 % 08/20/2019 12:00:00 AM EST cream 45 APPLY NEEDED THREE TIMES A DAY APPLY NEEDED THREE TIMES A DAY SOLD: 10/27/2019 [facility] 1-0.05 % 08/20/2019 12:00:00 AM EST cream 45 APPLY NEEDED THREE TIMES A DAY APPLY NEEDED THREE TIMES A DAY SOLD: 09/29/2019 [facility] 50 mcg/actuation 08/12/2019 12:00:00 AM EST spray,suspension 16 SPRAY TWO SPRAYS IN EACH NOSTRIL ONCE DAILY IN THE EVENING SPRAY TWO SPRAYS IN EACH NOSTRIL ONCE DAILY IN THE EVENING SOLD: 08/13/2019 [facility] montelukast 10 MG Oral Tablet MONTELUKAST SODIUM 05/27/2019 12:0 0:00 AM EDT tablet 30 TAKE ONE TABLET BY MOUTH AT BEDT SHIRIN TAKE ONE TABLET BY MOUTH AT BEDTIME SOLD: 10/06/2019 [facility] 1-0.05 % 05/27/2019 12:00:00 AM EDT cream 45 APPLY NEEDED THREE TIMES A DAY APPLY NEEDED THREE TIMES A DAY SOLD: 07/24/2019 [facility] montelukast 10 MG Oral Tablet MONTELUKAST SODIUM 05/27/2019 12:0 0:00 AM EDT tablet 30 TAKE ONE TABLET BY MOUTH AT BEDT SHIRIN TAKE ONE TABLET BY MOUTH AT BEDTIME SOLD: 08/26/2019 [facility] montelukast 10 MG Oral Tablet MONTELUKAST SODIUM 05/27/2019 12:0 0:00 AM EDT tablet 30 TAKE ONE TABLET BY MOUTH AT BEDT SHIRIN TAKE ONE TABLET BY MOUTH AT BEDTIME SOLD: 07/24/2019 [facility] montelukast 10 MG Oral Tablet MONTELUKAST SODIUM 05/27/2019 12:0 0:00 AM EDT tablet 30 TAKE ONE TABLET BY MOUTH AT BEDT SHIRIN TAKE ONE TABLET BY MOUTH AT BEDTIME SOLD: 09/03/2019 [facility] montelukast 10 MG Oral Tablet MONTELUKAST SODIUM 05/27/2019 12:0 0:00 AM EDT tablet 30 TAKE ONE TABLET BY MOUTH AT BEDT SHIRIN TAKE ONE TABLET BY MOUTH AT BEDTIME SOLD: 11/04/2019 [facility] 200-25 mcg/dose 05/19/2019 12:00:00 AM EDT blister with mandi ce 60 INHALE 1 PUFF BY MOUTH ONCE DAILY INHALE 1 PUFF BY MOUTH ONCE DAILY SOLD: 08/13/2019 [facility] 200-25 mcg/dose 05/19/2019 12:00:00 AM EDT blister with mandi ce 60 INHALE 1 PUFF BY MOUTH ONCE DAILY INHALE 1 PUFF BY MOUTH ONCE DAILY SOLD: 10/06/2019 [facility] 200-25 mcg/dose 05/19/2019 12:00:00 AM EDT blister with mandi ce 60 INHALE 1 PUFF BY MOUTH ONCE DAILY INHALE 1 PUFF BY MOUTH ONCE DAILY SOLD: 11/04/2019 [facility] 200-25 mcg/dose 05/19/2019 12:00:00 AM EDT blister with mandi ce 60 INHALE 1 PUFF BY MOUTH ONCE DAILY INHALE 1 PUFF BY MOUTH ONCE DAILY SOLD: 09/03/2019 [facility] Escitalopram 10 MG Oral Tablet ESCITALOPRAM OXALATE 04/17/2019 1 2:00:00 AM EDT tablet 30 TAKE ONE TABLET BY MOUTH EVERY D AY TAKE ONE TABLET BY MOUTH EVERY DAY SOLD: 08/13/2019 [facility] Escitalopram 10 MG Oral Tablet ESCITALOPRAM OXALATE 04/17/2019 1 2:00:00 AM EDT tablet 30 TAKE ONE TABLET BY MOUTH EVERY D AY TAKE ONE TABLET BY MOUTH EVERY DAY SOLD: 11/04/2019 [facility] Escitalopram 10 MG Oral Tablet ESCITALOPRAM OXALATE 04/17/2019 1 2:00:00 AM EDT tablet 30 TAKE ONE TABLET BY MOUTH EVERY D AY TAKE ONE TABLET BY MOUTH EVERY DAY SOLD: 12/05/2019 [facility] Escitalopram 10 MG Oral Tablet ESCITALOPRAM OXALATE 04/17/2019 1 2:00:00 AM EDT tablet 30 TAKE ONE TABLET BY MOUTH EVERY D AY TAKE ONE TABLET BY MOUTH EVERY DAY SOLD: 10/06/2019 [facility] Escitalopram 10 MG Oral Tablet ESCITALOPRAM OXALATE 04/17/2019 1 2:00:00 AM EDT tablet 30 TAKE ONE TABLET BY MOUTH EVERY D AY TAKE ONE TABLET BY MOUTH EVERY DAY SOLD: 01/02/2020 [facility] Escitalopram 10 MG Oral Tablet ESCITALOPRAM OXALATE 04/17/2019 1 2:00:00 AM EDT tablet 30 TAKE ONE TABLET BY MOUTH EVERY D AY TAKE ONE TABLET BY MOUTH EVERY DAY SOLD: 09/03/2019 [facility] Insurance Providers Payer name Policy type / Coverage type Policy ID Covered alliance party ID Covered alliance party's relationship to yip Policy Yip Plan Information BCBS [address]IRE LANE DIV [id number] SP [id number] [employer] [id number] SP [id number] DIV [id number] SP [id number] EXCELLUS BCBS [id number] EXCELLUS BCBS [id number] Juanis YLS [id number] [place] Plan P [id number] S [id number] [employer] [place] Commercial [id number] Self [id number] [place] [facility] Health Maintenance Organization (HMO) [id number] Self [id number] [facility] [place] Health Maintenance Organization (HMO) [id number] Self [id number] [employer] [place] Commercial [id number] Self [id number] [employer] [id number] S [id number] BCBS EMPIRE [id number] S [id number] [place] [facility] [employer] Maintenance Organization (HMO) [id number] Self [id number] [place] Plan Commercial [id number] Self [id number] [employer] [id number] S [id number] BCBS EMPIRE [id number] S [id number] DIV [id number] SP [id number] [facility] [place] Health Maintenance Organization (HMO) [id number] Self [id number] [facility] [place] Health Maintenance Organization (HMO) [id number] Self [id number] [employer] [place] Commercial [id number] Self [id number] [employer] [place] Commercial [id number] Self [id number] [employer] O [id number] S [id number] [place] P [id number] S [id number] EMPIRE PLAN [facility] [place] [id number] Self [id number] [place] P [id number] S [id number] [place] Plan Health Maintenance Organization (HMO) [id number] Self [id number] [employer] [id number] SP [id number] [employer] [place] Commercial [id number] Self [id number] [place] Plan Health Maintenance Organization (HMO) [id number] Self [id number] [place] Plan [employer] Commercial [id number] Self [id number] [facility] [place] Commercial [id number] Self [id number] [facility] [place] Commercial Self [place] Plan [employer] Commercial Self BCBS EMPIRE LANE DIV [id number] SP [id number] [facility] [place] Health Maintenance Organization (HMO) Self EMPIRE (STATE EMP) O [id number] S [id number] Problems, Conditions, and Diagnoses Code Display Name Description Problem Type Effective Dates Data Source(s) E78.5 Hyperlipidemia Hyperlipidemia [id number] 05/18/2020 12:00: 00 AM EDT [facility] R07.89 Other chest pain Other chest pain Diagnosis 07/20/2020 08 :57:08 AM EST [facility] I49.3 Ventricular premature depolarization Ventricular premature depolarization Diagnosis 07/20/2020 08:57:08 AM EST [facility] E78.5 Hyperlipidemia, unspecified Hyperlipidemia, unspecifie d Diagnosis 07/20/2020 08:57:08 AM [facility] Surgeries/Procedures Procedure Description Date Indications Data Source(s) ARTHROCENTESIS ASPIR&/INJECTION MAJOR JT/BURSA 020 12:00:00 AM EDT [facility] ([facility] ) RADIOLOGIC EXAMINATION KNEE 3 VIEWS 04/28/2020 12:00:0 0 AM EDT [facility] ([facility]) REMOVAL SKN TAGS DIRECTOR NICU FIBRQ TAGS ANY AREA UP&W/15 03/30 12:00:00 AM EDT [facility] ([facility]) Colonoscopy 12/24/2019 12:00:00 AM EDT M [facility] ([facility]) Results ID Date Data Source [id number] 09/16/2020 01:30:00 PM EST [facility] ([facility]) Name Value Range Interpretation Code Description Data Joanie rce(s) Supporting Document(s) Erythrocyte sedimentation rate by Westergren method 3 mm/hr 0-20 [facility] ([facility]) ID Date Data Source [id number] 09/16/2020 01:30:00 PM EST [facility] ([facility]) Name Value Range Interpretation Code Description Data Joanie rce(s) Supporting Document(s) Hemoglobin 15.3 g/dL 13.5-17.5 [facility] ([facility]) White Blood Count 9.2 10 4.0-10.0 [facility] ([facility]) Red Blood Count 4.91 10 4.30-6.10 [facility] ([facility]) Mean Corpuscular Hemoglobin 31.2 pg 27.0-33.0 ME DENT ([facility]) Hematocrit 45.8 % 42.0-52.0 [facility] ([facility]) Mean Corpuscular Volume 93.3 fl 80.0-96.0 [facility] ([facility]) Mean Corpuscular HGB Conc 33.4 g/dL 32.0-36.5 MEDE NT ([facility]) Red Cell Distribution Width 11.8 % 11.5-14.5 [facility] ([facility]) Lymph % 20.9 % 24.0-44.0 [facility] [facility] Neutrophils % 70.4 % 36.0-66.0 [facility] ([facility]) Platelet Count, Automated 234 10 150-450 MED[facility] NT ([facility]) Eos % 0.8 % 0.0-3.0 [facility] [facility] Baso % 0.3 % 0.0-1.0 [facility] [facility] [place] % 7.1 % 0.0-5.0 [facility] [facility] Nucleated Red Blood Cell % 0.0 % 0-0 MED ENT ([facility]) Neutrophils # 6.5 10 1.5-8.5 [facility] ([facility]) Immature Granulocyte % 0.5 % 0-3.0 [facility] ([facility]) Eos # 0.1 10 0.0-0.5 [facility] [facility]) [place] # 0.7 10 0.0-0.8 [facility] ([place] [facility]) Lymph # 1.9 10 1.5-5.0 [facility] ([place] [facility]) Baso # 0.0 10 0.0-0.2 [facility] ([place] [facility]) ID Date Data Source [id number] 09/16/2020 01:30:00 PM EST [facility] ([facility]) Name Value Range Interpretation Code Description Data Joanie rce(s) Supporting Document(s) Creatinine For GFR 0.87 mg/dL 0.70-1.30 [facility] ([facility]) Blood Urea Nitrogen 19 mg/dL 7-18 [facility] ([facility]) Glucose, Fasting 133 mg/dL 70-100 [facility] ([facility]) Glomerular Filtration Rate Laboratory test result [facility] ([facility]) <content>Units are mL/min/1.73 m2</content>
<content></content>
<content>Chronic Kidney Disease Staging per NKF:</content>
<content></content>
<content>Stage I & II GFR >=60 Normal to Mildly Decreased</content>
<content>Stage III GFR 30- 59 Moderately Decreased</content>
<content>Stage IV GFR 15-29 Severely Decreased</content>
<content>Stage V GFR <15 Very Little GFR Left</content>
<content>ESRD GFR <15 on SECURITY GUARD</content>
<content></content> Sodium Level 140 meq/L 136-145 [facility] ([facility]) Potassium Serum 4.2 meq/L 3.5-5.1 [facility] ([facility]) Carbon Dioxide Level 33 meq/L 21-32 [facility] ([facility]) Chloride Level 102 meq/L 98-107 [facility] ([facility]) Anion Gap 5 meq/L 8-16 [facility] ([place] [facility]) Calcium Level 9.7 mg/dL 8.8-10.2 [facility] ([facility]) Alt/SGPT 39 U/L 12-78 [facility] ([facility]) Ast/Sgot 20 U/L 7-37 [facility] ([facility]) Bilirubin,Total 0.9 mg/dL 0.2-1.0 [facility] ([facility]) Alkaline Phosphatase 99 U/L 45-117 [facility] ([facility]) Albumin/Globulin Ratio 1.6 [facility] ([facility]) Total Protein 7.0 GM/DL 6.4-8.2 [facility] ([facility]) Albumin 4.3 GM/DL 3.2-5.2 [facility] ([facility]) ID Date Data Source [id number] 09/16/2020 01:30:00 PM EST [facility] ([facility]) Name Value Range Interpretation Code Description Data Joanie rce(s) Supporting Document(s) Inr 0.98 [facility] ([facility]) THERAPUTIC HUMAN INR VALUES INDICATIONS NORMAL RANGES PROPHYLAXIS/TREATMENT OF: VENOUS THROMBOSIS 2.0-3.0 PULMONARY EMBOLISM 2.0-3.0 PREVENTION OF SYSTEMIC EMBOLISM FROM: TISSUE HEART VALVES 2.0-3.0 ACUTE MYOCARDIAL INFARCTION 2.0-3.0 VALVULAR HEART DISEASE 2.0-3.0 ATRIAL FIBRILLATION 2.0-3.0 MECHANICAL VALVES(HIGH RISK) 2.5-3.5 RECURRENT MYOCARDIAL INFARCTION 2.5-3.5 Prothrombin Time 13.2 s 12.5-14.3 [facility] ([facility]) ID Date Data Source [id number] 09/16/2020 01:30:00 PM EST [facility] ([facility]) Name Value Range Interpretation Code Description Data Joanie rce(s) Supporting Document(s) Erythrocyte sedimentation rate by Westergren method 3 mm/hr 0-20 [facility] ([facility]) ID Date Data Source [id number] 09/16/2020 01:30:00 PM EST [facility] ([facility]) Name Value Range Interpretation Code Description Data Joanie rce(s) Supporting Document(s) White Blood Count 9.2 10 4.0-10.0 [facility] ([facility]) Hemoglobin 15.3 g/dL 13.5-17.5 [facility] ([facility]) Red Blood Count 4.91 10 4.30-6.10 [facility] ([facility]) Mean Corpuscular Volume 93.3 fl 80.0-96.0 M EDENT ([facility]) Mean Corpuscular Hemoglobin 31.2 pg 27.0-33.0 [facility] ([facility]) Hematocrit 45.8 % 42.0-52.0 [facility] ([facility]) Red Cell Distribution Width 11.8 % 11.5-14.5 [facility] ([facility]) Mean Corpuscular HGB Conc 33.4 g/dL 32.0-36.5 [facility] ([facility]) Platelet Count, Automated 234 10 150-450 [facility] ([facility]) Neutrophils % 70.4 % 36.0-66.0 [facility] ([facility]) Lymph % 20.9 % 24.0-44.0 [facility]) Eos % 0.8 % 0.0-3.0 [facility] ([facility]) [place] % 7.1 % 0.0-5.0 [facility]) Immature Granulocyte % 0.5 % 0-3.0 [facility] ([facility]) Baso % 0.3 % 0.0-1.0 [facility]) Nucleated Red Blood Cell % 0.0 % 0-0 MED [facility] ([facility]) Neutrophils # 6.5 10 1.5-8.5 [facility] ([facility]) Lymph # 1.9 10 1.5-5.0 [facility] [place] # 0.7 10 0.0-0.8 [facility] ([facility]) Eos # 0.1 10 0.0-0.5 [facility] ([facility]) Baso # 0.0 10 0.0-0.2 [facility] ([facility]) ID Date Data Source [id number] 09/16/2020 01:30:00 PM EST [facility] ([facility]) Name Value Range Interpretation Code Description Data Joanie rce(s) Supporting Document(s) Glucose, Fasting 133 mg/dL 70-100 [facility] ([facility]) Creatinine For GFR 0.87 mg/dL 0.70-1.30 [facility] ([facility]) Blood Urea Nitrogen 19 mg/dL 7-18 [facility] ([facility]) Sodium Level 140 meq/L 136-145 [facility] ([facility]) Potassium Serum 4.2 meq/L 3.5-5.1 [facility] ([facility]) Glomerular Filtration Rate Laboratory test result [facility] ([facility]) <content>Units are mL/min/1.73 m2</content>
<content></content>
<content>Chronic Kidney Disease Staging per NKF:</content>
<content></content>
<content>Stage I & II GFR >=60 Normal to Mildly Decreased</content>
<content>Stage III GFR 30- 59 Moderately Decreased</content>
<content>Stage IV GFR 15-29 Severely Decreased</content>
<content>Stage V GFR <15 Very Little GFR Left</content>
<content>ESRD GFR <15 on SECURITY GUARD</content>
<content></content> Carbon Dioxide Level 33 meq/L 21-32 [facility] ([facility]) Chloride Level 102 meq/L 98-107 [facility] ([facility]) Calcium Level 9.7 mg/dL 8.8-10.2 [facility] ([facility]) Ast/Sgot 20 U/L 7-37 [facility] ([facility]) Anion Gap 5 meq/L 8-16 [facility] ([facility]) Bilirubin,Total 0.9 mg/dL 0.2-1.0 [facility] ([facility]) Alkaline Phosphatase 99 U/L 45-117 [facility] ([facility]) Alt/SGPT 39 U/L 12-78 [facility] ([facility]) Albumin 4.3 GM/DL 3.2-5.2 [facility] ([facility]) Total Protein 7.0 GM/DL 6.4-8.2 [facility] ([facility]) Albumin/Globulin Ratio 1.6 [facility] ([facility]) ID Date Data Source [id number] 09/16/2020 01:30:00 PM EST [facility] ([facility]) Name Value Range Interpretation Code Description Data Joanie rce(s) Supporting Document(s) Inr 0.98 [facility] ([facility]) THERAPUTIC HUMAN INR VALUES INDICATIONS NORMAL RANGES PROPHYLAXIS/TREATMENT OF: VENOUS THROMBOSIS 2.0-3.0 PULMONARY EMBOLISM 2.0-3.0 PREVENTION OF SYSTEMIC EMBOLISM FROM: TISSUE HEART VALVES 2.0-3.0 ACUTE MYOCARDIAL INFARCTION 2.0-3.0 VALVULAR HEART DISEASE 2.0-3.0 ATRIAL FIBRILLATION 2.0-3.0 MECHANICAL VALVES(HIGH RISK) 2.5-3.5 RECURRENT MYOCARDIAL INFARCTION 2.5-3.5 Prothrombin Time 13.2 s 12.5-14.3 [facility] ([facility]) ID Date Data Source [id number] 09/16/2020 12:00:00 PM EST [facility] Name Value Range Interpretation Code Description Data Joanie rce(s) Supporting Document(s) SARS coronavirus 2 RNA Not Detected [facility] This lab was ordered by [facility] and reported by [facility]. ID Date Data Source [id number] 09/15/2020 10:55:00 AM EST [facility] ([facility]) Name Value Range Interpretation Code Description Data Joanie rce(s) Supporting Document(s) Prothrombin Time 13.1 s 12.5-14.3 [facility] ([facility]) Inr 0.97 [facility] ([place] [facility]) THERAPUTIC HUMAN INR VALUES INDICATIONS NORMAL RANGES PROPHYLAXIS/TREATMENT OF: VENOUS THROMBOSIS 2.0-3.0 PULMONARY EMBOLISM 2.0-3.0 PREVENTION OF SYSTEMIC EMBOLISM FROM: TISSUE HEART VALVES 2.0-3.0 ACUTE MYOCARDIAL INFARCTION 2.0-3.0 VALVULAR HEART DISEASE 2.0-3.0 ATRIAL FIBRILLATION 2.0-3.0 MECHANICAL VALVES(HIGH RISK) 2.5-3.5 RECURRENT MYOCARDIAL INFARCTION 2.5-3.5 Partial Thromboplastin Time 32.1 s 24.2-38.5 [facility] ([facility]) ID Date Data Source [id number] 09/15/2020 10:51:00 AM EST [facility] ([facility]) Name Value Range Interpretation Code Description Data Joanie rce(s) Supporting Document(s) Glucose [Mass/volume] in Serum or Plasma 101 mg/dL 74-99 [facility] ([facility]) 100-125 mg/dL PRE-DIABETES/FASTING >126 mg/dL DIABETES/FASTING Urea nitrogen [Mass/volume] in Serum or Plasma 12 mg/dL 7-18 [facility] ([facility]) Creatinine 0.7 mg/dL 0.6-1.3 [facility] ([facility]) Sodium [Moles/volume] in Serum or Plasma 140 meq/L 136-145 [facility] ([facility]) Potassium [Moles/volume] in Serum or Plasma 4.6 meq/L 3.5-5.1 [facility] ([facility]) Carbon dioxide, total [Moles/volume] in Serum or Plasma 32 meq/L 21 -32 [facility] ([facility]) Calcium [Mass/volume] in Serum or Plasma 9.2 mg/dL 8.5-10.1 [facility] ([facility]) Chloride [Moles/volume] in Serum or Plasma 100 meq/L 98-107 [facility] ([facility]) Alkaline phosphatase isoenzyme [Units/volume] in Serum or Pl asma 100 mg/dL 46-116 [facility] ([facility]) Total Bilirubin 1.4 mg/dL 0.2-1.0 [facility] ([facility]) NOTE: RESULT VERIFIED. Aspartate aminotransferase [Enzymatic activity/volume] in Serum or Plasma 24 U/L 15-37 [facility] ([facility] ) Albumin [Mass/volume] in Serum or Plasma 4.3 g/dL 3.4-5.0 [facility] ([facility]) Alanine aminotransferase [Enzymatic activity/volume] in Seru m or Plasma 40 U/L 12-78 [facility] ([facility]) Glomerular filtration rate/1.73 sq M pre dicted among non-blacks [Volume Rate/Area] in Serum or Plasma by Creatinine-based formula (MDRD) Laboratory test result [facility] [facility] A/G Ratio 1.48 CALC 1.00-1.90 [facility] [facility]) Proteinase 3 Ab [Units/volume] in Serum 7.2 g/dL 6.4-8.2 [facility] ([facility]) Glomerular filtration rate/1.73 sq M pre dicted among blacks [Volume Rate/Area] in Serum or Plasma by Creatinine-based formula (MDRD) Laboratory test result [facility] [facility] <content>CHRONIC KIDNEY DISEASE STAGING PER NKF</content>
<content></content>
<content>STAGE I & II GFR >= 60 NORMAL TO MILDLY DECREASED</content>
<content>STAGE III GFR 30-59 MODERATELY DECREASED</content>
<content>STAGE IV GFR 15-29 SEVERELY DECREASED</content>
<content>STAGE V GFR <15 VERY LITTLE GFR LEFT</content>
<content>ESRD GFR <15 ON SECURITY GUARD</content>
<content></content> ID Date Data Source [id number] 09/15/2020 10:51:00 AM EST [facility] Name Value Range Interpretation Code Description Data Joanie rce(s) Supporting Document(s) Leukocytes [#/volume] in Blood by Automated count 8.0 x10*3/UL 4.1-10 .9 [facility] [facility] Erythrocytes [#/volume] in Blood by Automated count 4.93 x10*6/UL 4.2 0-6.30 [facility] [facility] MCV 90.6 fL 80.0-97.0 [facility] Hematocrit [Volume Fraction] of Blood by Automated count 44.7 % 3 7.0-51.0 [facility] [facility] Hemoglobin [Mass/volume] in Blood 15.3 g/dL 12.0-18.0 [facility] ([place] [facility]) MCHC 34.2 g/dL 31.0-38.0 [facility] ([facility]) MCH 31.0 pg 26.0-32.0 [facility] Erythrocyte distribution width [Ratio] by Automated count 12.7 % 11.6-13.7 [facility] [facility] Platelets [#/volume] in Blood by Automated count 217 x10*3/UL 140-440 [facility] ([facility]) Lymph % 17.5 % 10.0-58.5 [facility] [facility]) MPV 7.0 FL 7.8-11.0 [facility] [facility]) Mid % 5.5 % 1.7-9.3 [facility] [facility]) Lymph # 1.4 x10*3/UL 0.6-4.1 [facility] ([facility]) Neut % 77.0 % 37.0-92.0 [facility] [facility]) Mid # 0.4 x10*3/UL 0.1-0.6 [facility] ([facility]) Neut # 6.2 x10*3/UL 2.0-7.8 [facility] ([facility]) ID Date Data Source [id number] 09/11/2020 02:56:00 PM EST [facility] ([facility]) Name Value Range Interpretation Code Description Data Joanie rce(s) Supporting Document(s) Laboratory test finding (navigational concept) Laboratory test result [facility] ([facility]) ID Date Data Source [id number] 09/11/2020 11:04:00 AM EST [facility] ([facility]) Name Value Range Interpretation Code Description Data Joanie rce(s) Supporting Document(s) Erythrocyte sedimentation rate by Westergren method Laboratory test result [facility] ([facility]) ID Date Data Source [id number] 09/11/2020 11:00:00 AM EST [facility] ([facility]) Name Value Range Interpretation Code Description Data Joanie rce(s) Supporting Document(s) EKG Laboratory test result [facility] ([facility]) ID Date Data Source [id number] 09/11/2020 10:59:00 AM EST [facility] ([facility]) Name Value Range Interpretation Code Description Data Joanie rce(s) Supporting Document(s) Chest x-ray Laboratory test result [facility] ([facility]) ID Date Data Source [id number] 07/02/2020 03:40:48 PM EST [facility] Name Value Range Interpretation Code Description Data Joanie rce(s) Supporting Document(s) &PDF [facility] [id number] FcG [file] [id number]+TRANSPLANTER ORCHID mx9JKiOmBr5h3ttarzjWgniXsKOSia8XmWNJ22ZIMdU9Xy41UTEVAzo7aTBcGFlO0KBRCeGzP9e+mDoo b6hKV6FeBeKKITxvGNBL9F4gyzVxSuXMKiLt42HnuR J8ifZP9IbnM31HDtCVsFUflHCXsu82KMvWODpjRhd8RHCfNrHSTG34G20UuQ/N5n7P26YA5JBNzgsCMI yvePqQZcxZARSjmA1gEbS/4X/mYZILeX4fjgi6wU7KOPL6o9T4uSOltVtq7Y5l9xjwwmtrLdhz7qV7lr psbLZuyuRIlFgYy/G/5Pf21ebEL0/afUG6cMVI/plM 07Y1O95GzRT2v6n3Ix7Fyf6o3T/LQPeByrr5jt3djPjmN3Vsy2nwaQ+Gcb+811NmmC7aIOcf0eRbAcss 0kDFpSf6jRthpJjCTmAuFFoI4lN3u8uUrOeUZ9S9n+qzV1hpH8J4dFR/nzLBq5txugQDTn8KZe90K16T jtTyVQTu30F8tQ0dHhiQOG4zSS3ibB2miKXoYj8e5E X+reD5nJmN+OEK+4RA0RgFKq7Sn4THwRFAVx2osF4mY3a5+IiRTyudtSjGs4TRVn3H0cwV0JmXiP4wC2 RanTzkusrkxfezXmEuKxcgzbqNSGVqYCg08Ut7iBuwxYoxs0+M0ev0a/L8qeVxtFkApcIlujuSRjessg Vxugr8WfEYB4Or8/DB4gx4wLDWTq9Baurn5RuM28xG 1+qBtn7I4AT9+yjiklTWBYX6rHWe1ngkwOcdJ+JZY8/ySCLieOpH3/MU8XdnkFb18n/p3+SZoiiKoiiK jhoSnkeAikrTlxfTasfReooBmbrIzckArqqLzhoUwfpEwigRqc9D/mbAolePJKyjfrJraIGeAF5VWhCy LD9hrl7ZEXLvLGQrOsmWZhsbVIfjgcOkBgmMSwNgVP SyVxxYRhv3DEyoZH8Aog8wT1D4YNhvLQCGE5DltUTaNB5iO9MYA0daOGkgEk0CDnUkZ9LjzwDxODzkE5 OrNQpoXLYJWZiwETPtK8OqNONxCFYhUg0+VHeuYA4NB9VzVCJ4DPh7ZV8fhFvsYUTrQYBaSt6FCBNqMN 2hsUnsJRVvATOjEu5+PUkoZU2TpPNZV2JdjFPeVKyo M5HRZY6LCSE1YT8GiCEcUE9QyTWLU2HteAOcCp6kLNJri4RaFe6yP2XZLFJGMDOyKRoqJFtkCVTpSKx0 Z3Z5XOEzQ3CYP338cQSgoJb3Oa1aT7IXHUfFZuFzWGaxQChcUHFqSKq1E5D1XGImR0ZZV3OgCyOtndWz Y2U+ZrHmXXLLBI6GPVEKWLx1E0Q6eVShC2V6iHpJfD W2GP7IHR8FiXZauWHmr67+CaKSQaVqM6EIN4SGWB2TNIa2J7R0jJDiF9H3wJzKhCL3LB7XBD4XcKesiY EdMf8jIRowCSZ+Hj5GFj0KBxBpGG6vzn9KYMJxHQAgNkiRQnu7J9inlbd3zKHbXyO8K4P9WdS8yDZyQF 1WV3O8hTPqFWM2XHZkzPS+Ur3Mw9QuQETvVYp9M4xp EQUbLNWpCaNvpG22J++6hwwxmRA8O1j1EENFuQPylVyJiyRdV7qYJOR4q1V9AFt/Cz1NFGC6iId4rEOq XXXqEOn7rP5mnTy2ZqTxFS19AQIsOIfxtD7iXls3I4Uwc7FeBn7eSz4ixSVvWi0IJtJhZOH6ozUyLhUK JfN3zYssftlqPVZ6B6h5vAH4Zj51d5fpvxVpg6QsMs F8IZxiZTOmVsBlkzOpYEL9lzFvuK2fjpHkIh9WKXFlRFdunhGnCjVSVf3HEzIaJC21TcmxqP0atGW+DQ ogICAgICAgICAgICAgICAgICAgICAgICAgICAgICAgICAgICAgICAgICAgICAgICAgICAgICAgICAgIC AgICAgICAgICAgICAgICAgICAgICAgICAgICAgICAg ICAgICAgICAgDQogICAgICAgICAgICAgICAgICAgICAgICAgICAgICAgICAgICAgICAgICAgICAgICAg ICAgICAgICAgICAgICAgICAgICAgICAgICAgICAgICAgICAgICAgICAgICAgICAgICAgDQogICAgICAg ICAgICAgICAgICAgICAgICAgICAgICAgICAgICAgIC AgICAgICAgICAgICAgICAgICAgICAgICAgICAgICAgICAgICAgICAgICAgICAgICAgICAgICAgICAgIC AgDQogICAgICAgICAgICAgICAgICAgICAgICAgICAgICAgICAgICAgICAgICAgICAgICAgICAgICAgIC AgICAgICAgICAgICAgICAgICAgICAgICAgICAgICAg ICAgICAgICAgICAgDQogICAgICAgICAgICAgICAgICAgICAgICAgICAgICAgICAgICAgICAgICAgICAg ICAgICAgICAgICAgICAgICAgICAgICAgICAgICAgICAgICAgICAgICAgICAgICAgICAgICAgDQogICAg ICAgICAgICAgICAgICAgICAgICAgICAgICAgICAgIC AgICAgICAgICAgICAgICAgICAgICAgICAgICAgICAgICAgICAgICAgICAgICAgICAgICAgICAgICAgIC AgICAgDQogICAgICAgICAgICAgICAgICAgICAgICAgICAgICAgICAgICAgICAgICAgICAgICAgICAgIC AgICAgICAgICAgICAgICAgICAgICAgICAgICAgICAg ICAgICAgICAgICAgICAgDQogICAgICAgICAgICAgICAgICAgICAgICAgICAgICAgICAgICAgICAgICAg ICAgICAgICAgICAgICAgICAgICAgICAgICAgICAgICAgICAgICAgICAgICAgICAgICAgICAgICAgDQog ICAgICAgICAgICAgICAgICAgICAgICAgICAgICAgIC AgICAgICAgICAgICAgICAgICAgICAgICAgICAgICAgICAgICAgICAgICAgICAgICAgICAgICAgICAgIC AgICAgICAgDQogICAgICAgICAgICAgICAgICAgICAgICAgICAgICAgICAgICAgICAgICAgICAgICAgIC AgICAgICAgICAgICAgICAgICAgICAgICAgICAgICAg BEHhPHAeMSFvOCSkNRVqTNVrDEl1D7jcWUHhXRYvKM1mARp7Dp3+AQfDJtCpJEP5ijEhaY7QLO1gu5Br GMtqFCQvb4ApCPa1DH9ZUWCfSDhjNK6XSRitjv0QKNRhVFSbaIZJe7atMeAnCCL9WUPhOyvyLO7NHQYh X6zmqxXfGYVqQRCYBH6IUwMwV8OwiX66QVIKWy6+DQ dkibJeMhqEQtE0NTOcf5IlMBr0OC2XLOJgFTgoTC9RNJFgaJ3aWCgfEI1ZNtWeTYGsXDDMAcUpF24yjM KuILn3N5ZaNwSmTPWvXnlcUELwXDpuDbDoUFFgFoVaAWslXJ3+ID4+IGldCC3RJPunpwWbPEQbDc4OFW EsBVU7KSYkaZXgZUOvJACVVHqzTT9LsXQjGKN8cE5y FYypZKKxNDGuA1kTXrGoaZjvET41cUtuatHsuBIpONg+Mr4RIN9zo6PmXDq4akVnQDwjVRU9NJpkEKJd IVZfLBObMPR6GLE2JOFQFtBuLWFuWVJwEAzpUYAiCOCkuw4TLOWxWWArLxq9SiUiZLHkNHHgDCbaAOIo QDY8EES6IYDpQXIyHL3UYsUtPJHaSMPpRUKhEONcZF Iaom2GEVZjJLCgMbV4QGNzKCMfFZHhOClaVGQwLDVwEsD9CDPyMBYrXB7IRcSbWAZvZVJvKtcwYSXaBA Wsij5PFMHpKPZwCiMcRSRmJPXkYLOaXSdtIKDsMRBqCgZ1MAXxAMRmQB0SCsXmAVHgPSO3YhFqGUVgGB Tqhu7DHJCbERFkIXw3DIXsYOXzWPIoRIdpBCPnAJM1 MGWzAPUiIXYtDL3KMdMwDVLrDZN8ODSjKSMiPVOkpn5WPPLdHJObJhc7QDUkEPVoFGMhAXbcUXBwTOY9 GWa2RMPgEPYgSC6KVaAuHDWqEDB8UHMpQPCvCOHtht3SaGNnlYsnrc3WSVdZGv4BlTcgMWF4PDcaYt3n iVMxLxGyEPCTTk7HsxWfFFOaIMBETIdbULOyGNl2DN KlMWJ3TfTmCUGpCXY3XAN7HPfzZoE5MJMyRJYjXaE6EvqkArM0BSbtXvZaLLQ9XHL6HeBmU1NpXPi2CD RkZTI+HD5hXIq+Si9Rx6KwgqV2ctBpOIdmGMtlOJ1QMSYTH4CKXf== ID Date Data Source [id number] 03/30/2020 11:05:00 AM EDT [facility] Name Value Range Interpretation Code Description Data Joanie rce(s) Supporting Document(s) Thyrotropin [Units/volume] in Serum or Plasma by Detec tion limit <= 0.05 mIU/L 0.79 uIU/mL 0.36-3.74 [facility] ([facility] ) ID Date Data Source [id number] 03/30/2020 11:05:00 AM EDT [facility] ([facility]) Name Value Range Interpretation Code Description Data Joanie rce(s) Supporting Document(s) Cholesterol [Mass/volume] in Serum or Plasma 206 mg/dL 131-200 [facility] ([facility]) Cholesterol in LDL [Mass/volume] in Serum or Plasma by calcu lation 115 CALC 50-159 [facility] ([facility]) Triglyceride [Mass/volume] in Serum or Plasma 185 mg/dL 30-150 [facility] ([facility]) Cholesterol in HDL [Mass/volume] in Serum or Plasma 54 mg/dL 35-60 [facility] ([facility]) ID Date Data Source [id number] 03/30/2020 11:05:00 AM EDT [facility] Name Value Range Interpretation Code Description Data Joanie rce(s) Supporting Document(s) Urea nitrogen [Mass/volume] in Serum or Plasma 17 mg/dL 7-18 [facility] ([facility]) Glucose [Mass/volume] in Serum or Plasma 101 mg/dL 74-99 [facility] ([facility]) 100-125 mg/dL PRE-DIABETES/FASTING >126 mg/dL DIABETES/FASTING Creatinine 0.8 mg/dL 0.6-1.3 [facility] Potassium [Moles/volume] in Serum or Plasma 4.3 meq/L 3.5-5.1 [facility] ([facility]) Sodium [Moles/volume] in Serum or Plasma 144 meq/L 136-145 [facility] ([facility]) Calcium [Mass/volume] in Serum or Plasma 9.1 mg/dL 8.5-10.1 [facility] ([facility]) Carbon dioxide, total [Moles/volume] in Serum or Plasma 32 meq/L 21 -32 [facility] ([facility]) Chloride [Moles/volume] in Serum or Plasma 104 meq/L 98-107 [facility] ([facility]) Aspartate aminotransferase [Enzymatic activity/volume] in Serum or Plasma 18 U/L 15-37 [facility] ([facility] ) Total Bilirubin 0.6 mg/dL 0.2-1.0 [facility] ([facility]) Alkaline phosphatase isoenzyme [Units/volume] in Serum or Pl asma 82 mg/dL 46-116 [facility] ([facility]) Proteinase 3 Ab [Units/volume] in Serum 7.2 g/dL 6.4-8.2 [facility] ([facility]) Alanine aminotransferase [Enzymatic activity/volume] in Seru m or Plasma 28 U/L 12-78 [facility] Albumin [Mass/volume] in Serum or Plasma 3.8 g/dL 3.4-5.0 [facility] Glomerular filtration rate/1.73 sq M pre dicted among non-blacks [Volume Rate/Area] in Serum or Plasma by Creatinine-based formula (MDRD) Laboratory test result [facility] ([facility] ) A/G Ratio 1.12 CALC 1.00-1.90 [facility] ([facility]) Glomerular filtration rate/1.73 sq M pre dicted among blacks [Volume Rate/Area] in Serum or Plasma by Creatinine-based formula (MDRD) Laboratory test result [facility] ([facility]) <content>CHRONIC KIDNEY DISEASE STAGING PER NKF</content>
<content></content>
<content>STAGE I & II GFR >= 60 NORMAL TO MILDLY DECREASED</content>
<content>STAGE III GFR 30-59 MODERATELY DECREASED</content>
<content>STAGE IV GFR 15-29 SEVERELY DECREASED</content>
<content>STAGE V GFR <15 VERY LITTLE GFR LEFT</content>
<content>ESRD GFR <15 ON SECURITY GUARD</content>
<content></content> ID Date Data Source [id number] 03/30/2020 11:05:00 AM EDT [facility] Name Value Range Interpretation Code Description Data Joanie rce(s) Supporting Document(s) Leukocytes [#/volume] in Blood by Automated count 8.1 x10*3/UL 4.1-10 .9 [facility] Erythrocytes [#/volume] in Blood by Automated count 4.90 x10*6/UL 4.2 0-6.30 [facility] [facility] Hematocrit [Volume Fraction] of Blood by Automated count 44.0 % 3 7.0-51.0 [facility] [facility] MCV 89.8 fL 80.0-97.0 [facility] ([facility]) Hemoglobin [Mass/volume] in Blood 14.9 g/dL 12.0-18.0 [facility] ([facility]) MCH 30.4 pg 26.0-32.0 [facility] ([place] [facility]) Erythrocyte distribution width [Ratio] by Automated count 13.0 % 11.6-13.7 [facility] ([facility]) MCHC 33.9 g/dL 31.0-38.0 [facility] [facility] Lymph % 18.6 % 10.0-58.5 [facility] ([place] [facility]) Platelets [#/volume] in Blood by Automated count 255 x10*3/UL 140-440 [facility] ([facility]) MPV 7.8 FL 7.8-11.0 [facility] ([place] [facility]) Lymph # 1.5 x10*3/UL 0.6-4.1 [facility] ([facility]) Mid % 6.0 % 1.7-9.3 [facility] [facility] Neut % 75.4 % 37.0-92.0 [facility] ([place] [facility]) Mid # 0.5 x10*3/UL 0.1-0.6 [facility] ([facility]) Neut # 6.1 x10*3/UL 2.0-7.8 [facility] ([facility]) ID Date Data Source [id number] 12/16/2019 12:44:00 PM EDT [facility] ([facility]) Name Value Range Interpretation Code Description Data Joanie rce(s) Supporting Document(s) Prostate specific Ag [Mass/volume] in Serum or Plasma 0.05 ng/mL [facility] ([facility] [place]) The PSA assay is performed on the Prysm analyzer by LOCI sandwich chemiluminescent immunoassay and should not be compared interchangeably with other methods. It should not be used alone as a screening test or diagnosis for the presence or absence of malignant disease. Predictions of disease recurrence should not be based solely on values obtained from serial patient serum values. Prostate specific Ag [Mass/volume] in Serum or Plasma 0.5 [facility] ([facility]) ID Date Data Source [id number] 12/10/2019 08:19:00 AM EDT [facility] ([facility], ) Name Value Range Interpretation Code Description Data Joanie rce(s) Supporting Document(s) PDFReport SEE IMAGE [facility] ([facility], ) FVC-Pre 1.96 L [facility] ([facility], ) FVC-%Pred-Pre 46 L [facility] ([facility], ) FVC-Pred 4.18 L [facility] ([facility], ) Fev1-Pred 3.13 L [facility] ([facility]) Fev1-Pre 1.24 L [facility] ([facility]) FVC-LLN 3.32 L [facility] ([facility]) Fev1-%Pred-Pre 39 L [facility] ([facility]) Fev1-LLN 2.41 L [facility] ([facility], ) Fev6-Pred 3.96 L [facility] ([facility]) Fev6-LLN 3.13 L [facility] ([facility]) Fev6-Pre 1.96 L [facility] ([facility]) Ocu1yki-Myru 75 % [facility] ([facility]) Fev6-%Pred-Pre 49 L [facility] ([facility]) Wst3vbm-%Pred-Pre 84 % [facility] ([facility]) Jbi5gnf-ZJM 65 % [facility] ([facility]) Lnq2wxa-Nvc 63 % [facility] ([facility]) Xyl2irj-Ujxu 95 % [facility] ([facility]) Rov7ozr-%Pred-Pre 105 % [facility] ([facility]) Dih0yyy-Psk 100 % [facility] ([facility]) FEFMax-Pre 3.71 L/E/sec [facility] ([facility]) FEFMax-Pred 8.33 L/E/sec [facility] ([facility]) FEFMax-%Pred-Pre 44 L/E/sec [facility] ([facility]) Fct9225-Tpt 0.71 L/E/sec [facility] ([facility]) Cay7177-Hfhj 2.55 L/E/sec [facility] ([facility]) FEFMax-LLN 6.20 L/E/sec [facility] ([facility]) Cwq7543-%Pred-Pre 27 L/E/sec [facility] ([facility]) Pmw2287-MHO 1.08 L/E/sec [facility] ([facility]) ExpTime-Pre 5.97 sec [facility] ([facility]) Qcl5dnh4-Sulk 79 % [facility] ([facility]) Eoy4xzt6-%Pred-Pre 80 % [facility] ([facility]) Tog4mha0-Dji 63 % [facility] ([facility]) Lua5ltx8-WWZ 70 % [facility] ([facility]) Procedure Social History Code Duration Value Status Description Data Source(s ) Alcohol intake 07/02/2020 12:00:00 AM EST Yes completed [facility] Smoking 07/02/2020 12:00:00 AM EST Never smoker completed Never s moker [facility] Smoking 06/11/2020 12:00:00 AM EDT Patient has never smoked co mpleted Patient has never smoked [facility] ([facility]) Smoking 12/24/2019 12:00:00 AM EDT Never Smoked Cigarettes com pleted Never Smoked Cigarettes [facility] ([facility]) Vital Signs ID Date Data Source UNK Name Value Range Interpretation Code Description Data Source(s) Body mass index (BMI) [Ratio] 28.7 kg/m2 28.7 k g/m2 [facility] ([facility]) Oxygen saturation in Arterial blood by Pulse oximetry --post exerci se 96 % 96 % [facility] ([facility]) RM Air Body weight 189.00 [lb_av] 189.00 [lb_av] [facility] T ([facility]) Body height 68 [in_i] 68 [in_i] [facility] ([facility]) 5'8" Heart rate 65 /min 65 /min [facility] ([facility]) Diastolic blood pressure 72 mm[Hg] 72 mm[Hg] [facility] ([facility]) RT Arm Systolic blood pressure 144 mm[Hg] 144 mm[Hg] [facility] ([facility]) RT Arm Body mass index (BMI) [Ratio] 28.74 kg/m2 28.74 kg/m2 [facility] Body weight 85.73 kg 85.73 kg [facility] Body height 172.7 cm 172.7 cm [facility] Respiratory rate 16 /min 16 /min [facility] Heart rate 64 /min 64 /min [facility] Diastolic blood pressure 80 mm[Hg] 80 mm[Hg] [facility] Systolic blood pressure 136 mm[Hg] 136 mm[Hg] [facility] Body temperature 96.5 [degF] 96.5 [degF] [facility] Body weight 83.462 kg 83.462 kg [facility] ([facility], ) Graham body weight 148 [lb_av] 148 [lb_av] [facility] Body mass index (BMI) [Ratio] 28.8 kg/m2 28.8 k g/m2 [facility] ([facility], ) Body weight 184.00 [lb_av] 184.00 [lb_av] [facility] Body height 67 [in_i] 67 [in_i] [facility] ([facility], ) 5'7" Oxygen saturation in Arterial blood by Pulse oximetry 96 % 96 % [facility] ([facility], ) Room Air Heart rate 80 /min 80 /min [facility] ([facility], ) Diastolic blood pressure 70 mm[Hg] 70 mm[Hg] [facility] ([facility], ) Systolic blood pressure 118 mm[Hg] 118 mm[Hg] [facility] Body mass index (BMI) [Ratio] 27.4 kg/m2 27.4 k g/m2 [facility] ([facility]) Body weight 180.00 [lb_av] 180.00 [lb_av] [facility] ([facility]) Body height 68 [in_i] 68 [in_i] [facility] ([facility]) 5'8" Body mass index (BMI) [Ratio] 28.1 kg/m2 28.1 k g/m2 [facility]) Oxygen saturation in Arterial blood by Pulse oximetry 96 % 96 % [facility]) RM Air Body weight 185.00 [lb_av] 185.00 [lb_av] [facility] ([facility]) Body height 68 [in_i] 68 [in_i] [facility] ([facility]) 5'8" Heart rate 64 /min 64 /min [facility] ([facility]) Diastolic blood pressure 70 mm[Hg] 70 mm[Hg] [facility] ([facility]) Systolic blood pressure 130 mm[Hg] 130 mm[Hg] [facility] ([facility]) Body weight 84.370 kg 84.370 kg [facility] ([facility]) Graham body weight 148 [lb_av] 148 [lb_av] [facility] Body mass index (BMI) [Ratio] 29.1 kg/m2 29.1 k g/m2 [facility] ([facility]) Body weight 186.00 [lb_av] 186.00 [lb_av] [facility] Body height 67 [in_i] 67 [in_i] [facility] ([facility], ) 5'7" Oxygen saturation in Arterial blood by Pulse oximetry 97 % 97 % [facility] ([facility], ) Room Air Heart rate 44 /min 44 /min [facility] ([facility], ) Diastolic blood pressure 70 mm[Hg] 70 mm[Hg] [facility] ([facility], ) Systolic blood pressure 120 mm[Hg] 120 mm[Hg] [facility] ([facility], ) Patient Treatment Plan of Care Planned Activity Planned Date Details Description Data Source (s) atorvastatin 20 MG Oral Tablet 05/18/2020 12:00:00 AM EDT [facility] 8 HR Acetaminophen 650 MG Extended Release Oral Tablet [Mapap] 04/29/2020 12:00:00 AM EDT [facility] 30 ACTUAT fluticasone furoate 0.2 MG/ACT UAT / vilanterol 0.025 MG/ACTUAT Dry Powder Inhaler [Breo] 04/28/2020 12:00:00 AM EDT [facility]
--- OUTSIDE RECORDS SUMMARY | 2020-09-21 11:31 | CCD | Continuity of Care Document ---
Author Author Omi CARNEY Organization Unknown Address [address] [facility] [address] [place] [address] Phone [phone] Care Team Providers Care Lens Shaper Grinder Name Role Phone Burke Rodriguez MD [facility] [phone] Angely Carney DO AUT[facility] Unavailable Tommie Jernigan MD [facility] [phone] Problems Active Problems Provider Date Anxiety state [...] Vaccine Lot # U-Flu Given 04/28/2020 Influenza,Unspecified [id number] Given 03/30/2020 Pneumovax 23 [id number] Given 05/25/2012 Fluvirin Virus Vaccine [id number] Given 03/01/2012 Pneumovax 23 Vital Signs Date [...] Date Facility Test Result H/L Range Note PT & Aptt 09/15/2020 [facility] n[facility] [address] [place] [address] [phone] Prothrombin Time 13.1 seconds Normal 12.5-14.3 Inr 0.97 Normal 1 Partial Thromboplastin Time 32.1 seconds Normal 24.2-38.5 Complete Blood Count 09/15/2020 [facility] Set Up Mold Technician: [place] [address] [phone] WBC 8.0 x10*3/UL 4.1 - 10.9 RBC [...] 2.0 - 7.8 Comprehensive Chem Profile 09/15/2020 [facility] Set Up Mold Technician: [place] [address] [phone] Glucose 101 mg/dL High 74 - 99 2 BUN 12 mg/dL 7 - 18 Creatinine 0.7 mg/dL 0.6 - 1.3 Sodium 140 mEq/L 136 - 145 Potassium 4.6 mEq/L 3.5 - 5.1 Chloride 100 mEq/L 98 - 107 Carbon Dioxide 32 mEq/L 21 - 32 Calcium 9.2 mg/dL 8.5 - 10.1 Alk. Phosphatase 100 mg/dL 46 - 116 Total Bilirubin 1.4 mg/dL High 0.2 - 1.0 3 Ast (Sgot) 24 U/L 15 - 37 Alt (SGPT) 40 U/L 12 - 78 Albumin 4.3 g/dL 3.4 - 5.0 Total Protein 7.2 g/dL 6.4 - 8.2 A/G Ratio 1.48 CALC 1.00 - 1.90 GFR >= 60 mL/min >60 GFR >= 60 mL/min >60 4 Complete Blood Count 03/30/2020 [facility] Set Up Mold Technician: [place] [address] [phone] WBC 8.1 x10*3/UL 4.1 - 10.9 RBC [...] 2.0 - 7.8 Comprehensive Chem Profile 03/30/2020 [facility], Set Up Mold Technician: [place] [address] [phone] Glucose 101 mg/dL High 74 - 99 5 BUN 17 mg/dL 7 - 18 Creatinine [...] >60 GFR >= 60 mL/min >60 6 Lipid Profile 03/30/2020 [facility] , Set Up Mold Technician: [place] [address] [phone] Cholesterol 206 mg/dL High 131 - 200 Triglycerides 185 mg/dL High 30 - 150 HDL Cholesterol 54 mg/dL 35 - 60 LDL (Calculated) 115 CALC 50 - 159 Laboratory test finding 03/30/2020 [facility] milagros garnett Set Up Mold Technician: [place] [address] [phone] Thyroid Stimulating Hormone 0.79 uIU/mL 0.3 6 - 3.74 1 THERAPUTIC HUMAN INR VALUES INDICATIONS NORMAL RANGES PROPHYLAXIS/TREATMENT OF: VENOUS THROMBOSIS 2.0-3.0 PULMONARY EMBOLISM 2.0-3.0 PREVENTION OF SYSTEMIC EMBOLISM FROM: TISSUE HEART VALVES 2.0-3.0 ACUTE MYOCARDIAL INFARCTION 2.0-3.0 VALVULAR HEART DISEASE 2.0-3.0 ATRIAL FIBRILLATION 2.0-3.0 MECHANICAL VALVES(HIGH RISK) 2.5-3.5 RECURRENT MYOCARDIAL INFARCTION 2.5-3.5 2 100-125 mg/dL PRE-DIABET ES/FASTING >126 mg/dL DIABETES/FASTING 3 NOTE: RESULT VERIFIED. 4 CHRONIC KIDNEY DISEASE STAGI NG PER NKF STAGE I & II GFR >= 60 NORMAL TO MILDLY DECREASED STAGE III GFR 30-59 MODERATELY DECREASED STAGE IV GFR 15-29 SEVERELY DECREASED STAGE V GFR <15 VERY LITTLE GFR LEFT ESRD GFR <15 ON BAD CLOTH CHECKER 5 100-125 mg/dL PRE-DIABET ES/FASTING >126 mg/dL DIABETES/FASTING 6 CHRONIC KIDNEY DISEASE STAGI NG PER NKF STAGE I & II GFR >= 60 NORMAL TO MILDLY DECREASED STAGE III GFR 30-59 MODERATELY DECREASED STAGE IV GFR 15-29 SEVERELY DECREASED STAGE V GFR <15 VERY LITTLE GFR LEFT ESRD GFR <15 ON BAD CLOTH CHECKER Procedures Date Code Description Status 03/30/2020 77266 Removal Skin Tags 1-15 Completed 12/12/2011 [id number] Colonoscopy Completed Medical Devices Description No Information Available Encounters Type Date Location Provider Dx Diagnosis Office Visit 03/30/2020 10:40a [facility] Angely Carney DO L91.8 Other [...] 8:20 am - Angely Carney DO at [facility] 03/30/2020 - Angely Carney DO* L91.8 Other [...]
--- OUTSIDE RECORDS SUMMARY | 2020-09-21 11:31 | CCD | Continuity of Care Document ---
Author Author Omi CARNEY Organization Unknown Address [address] [facility] [address] [place] [address] Phone [phone] Care Team Providers Care Principal Gifts Officer Name Role Phone Burke Rodriguez MD AUTM [phone] Angely Carney DO AUTM Unavailable Tommie Jernigan MD AUTM [phone] Problems Active Problems Provider Date Anxiety state [...] Vaccine Lot # U-Flu Given 04/28/2020 Influenza,Unspecified [id number] Given 03/30/2020 Pneumovax 23 [id number] Given 05/25/2012 Fluvirin Virus Vaccine [id number] Given 03/01/2012 Pneumovax 23 Vital Signs Date [...] H/L Range Note PT & Aptt 09/15/2020 [facility] nter [address] [place] [address] [phone] Prothrombin Time 13.1 seconds Normal 12.5-14.3 Inr 0.97 Normal 1 Partial Thromboplastin Time 32.1 seconds Normal 24.2-38.5 Complete Blood Count 09/15/2020 [facility] Signal Tower Director: [place] [address] [phone] WBC 8.0 x10*3/UL 4.1 - 10.9 RBC [...] 2.0 - 7.8 Comprehensive Chem Profile 09/15/2020 [facility] Signal Tower Director: [place] [address] [phone] Glucose 101 mg/dL High 74 - 99 [...] mL/min >60 4 Complete Blood Count 03/30/2020 [facility] Signal Tower Director: [place] Ian [place] [address] [phone] WBC 8.1 x10*3/UL 4.1 - 10.9 RBC [...] 2.0 - 7.8 Comprehensive Chem Profile 03/30/2020 [facility] Signal Tower Director: [place] [address] [phone] Glucose 101 mg/dL High 74 - 99 [...] 60 mL/min >60 6 Lipid Profile 03/30/2020 [facility] , Signal Tower Director: [place] [address] [phone] Cholesterol 206 mg/dL High 131 - 200 Triglycerides 185 mg/dL High 30 - 150 HDL Cholesterol 54 mg/dL 35 - 60 LDL (Calculated) 115 CALC 50 - 159 Laboratory test finding 03/30/2020 [facility] milagros garnett Signal Tower Director: [place] [address] [phone] Thyroid Stimulating Hormone 0.79 uIU/mL 0.3 6 [...] LITTLE GFR LEFT ESRD GFR <15 ON PROCUREMENT REPRESENTATIVE 5 100-125 mg/dL PRE-DIABET ES/FASTING >126 mg/dL DIABETES/FASTING 6 CHRONIC KIDNEY DISEASE STAGI NG PER NKF STAGE I & II GFR >= 60 NORMAL TO MILDLY DECREASED STAGE III GFR 30-59 MODERATELY DECREASED STAGE IV GFR 15-29 SEVERELY DECREASED STAGE V GFR <15 VERY LITTLE GFR LEFT ESRD GFR <15 ON PROCUREMENT REPRESENTATIVE Procedures Date Code Description Status 03/30/2020 27161 Removal Skin Tags 1-15 Completed 12/12/2011 24787950 Colonoscopy Completed Medical Devices Description No Information Available Encounters Type Date Location Provider Dx Diagnosis Office Visit 03/30/2020 10:40a [facility] Angely Carney DO L91.8 Other [...] 8:20 am - Angely Carney DO at [facility] 03/30/2020 - Angely Carney DO* [...]
[2020-09-21] MEDS ORDERED: dexameTHASONE 10MG/1ML VIAL PRES.FREE (J1100 PER 1MG) As Ordered ONE (14:01)
[2020-09-21] MEDS ORDERED: ROPIvacaine 0.5% 30ML INJECTION (J2795 PER 1MG) As Ordered ONE (14:01)
[2020-09-21] MEDS ORDERED: EPINEPHrine INJ 1 MG/ML 1ML AMP As Ordered ONE ×2 (14:01→15:27)
[2020-09-21] MEDS ORDERED: fentaNYL 100 MCG/2 ML INJECTION (J3010) As Ordered ONE (14:05)
[2020-09-21] MEDS ORDERED: LIDOCAINE 2% 100MG/5ML SDV (FOR ANES.) As Ordered ONE (14:05)
[2020-09-21] MEDS ORDERED: propofoL 200 MG/20 ML VIAL As Ordered ONE ×4 (14:05→17:19)
[2020-09-21] MEDS ORDERED: ONDANSETRON 4MG/2ML VIAL As Ordered ONE (14:05)
[2020-09-21] MEDS ORDERED: MIDAZOLAM INJ 2MG/2ML VIAL (J2250 PER 1MG) As Ordered ONE (14:05)
[2020-09-21] MEDS ORDERED: ROPIvacaine 0.5% 30ML INJECTION (J2795 PER 1MG) XX ONE (15:00)
[2020-09-21] MEDS ORDERED: dexameTHASONE 10MG/1ML VIAL PRES.FREE (J1100 PER 1MG) XX ONE (15:00)
[2020-09-21] MEDS ORDERED: EPINEPHrine INJ 1 MG/ML 1ML AMP XX ONE (15:00)
[2020-09-21] MEDS ORDERED: TRANEXAMIC ACID 100 MG/ML 10ML VIAL As Ordered ONE (15:26)
[2020-09-21] MEDS ORDERED: BUPIVACAINE HCL 0.25% 10ML VIAL As Ordered ONE (15:27)
[2020-09-21] MEDS ORDERED: ceFAZolin 1GM VIAL (J0690 PER 500MG) As Ordered ONE (15:27)
[2020-09-21] MEDS ORDERED: BUPIVACAINE LIPOSOME/PF 1.3% 20ML VIAL (13.3MG/ML)(EXPAREL)(C9290 PER1MG) As Ordered ONE (15:27)
[2020-09-21] MEDS ORDERED: ONDANSETRON 4MG/2ML VIAL IV PRN ×2 (18:00→19:00)
[2020-09-21] MEDS ORDERED: oxyCODONE 5MG TAB PO PRN (18:00)
[2020-09-21] MEDS ORDERED: LR 1,000 ML IV SCH ×2 (18:00→19:00)
[2020-09-21] MEDS ORDERED: fentaNYL 100 MCG/2 ML INJECTION (J3010) IV PRN (18:00)
[2020-09-21] MEDS ORDERED: ACET650T3 PO (18:03)
[2020-09-21] MEDS ORDERED: ASPI81TA26 PO (18:03)
--- NOTE | 2020-09-21 18:13 | HPEPDOC ---
[facility] Medical History & Physical Date of Admission Sep 21, 2020 Date of Service: Sep 21, 2020 History and Physical CHIEF COMPLAINT: Medical consultation status post right knee arthroplasty HISTORY OF PRESENT ILLNESS: This is a 65-year-old male that underwent right knee total arthroplasty today I was asked to provide a medical consultation to assist with management of his chronic medical problems. Patient was seen in recovery room. Doing well complaints, happy the surgery is over this and asking for food. Denies being in any pain and is comfortable denies any chest pain shortness of breath denies abdominal pain. PAST MEDICAL/SURGICAL HISTORY: Depression Asthma Hyperlipidemia Prostate cancer SOCIAL HISTORY: Drinks alcohol socially only Denies tobacco use Denies illicit drug use FAMILY HISTORY: Reviewed and none contributory to this admission Extensive cardiac family history in mom, dad and brother ALLERGIES: Please see below. REVIEW OF SYSTEMS: 10 point review of systems complete all negative otherwise stated in HPI HOME MEDICATIONS: Please see below. PHYSICAL EXAMINATION: Constitutional: Awake and alert, in no apparent distress in PACU, pleasant mood ENT: Sclera are clear. Respiratory: Lungs CTA bilaterally. No respiratory distress. No use of accessory muscles. Cardiovascular: RRR S1 and S2 are normal, no murmur Gastrointestinal: Abdomen is soft, non distended, non tender, BS present. Musculoskeletal: No lower extremity edema. Right knee knee dressed Neurologic: No focal neurological deficit. Mental Status: A&O x3, normal affect Skin: Warm, dry LABORATORY DATA: See below. IMAGING: See chart MICROBIOLOGY: Please see below. ASSESSMENT/PLAN This is a 65-year-old male that underwent right knee total arthroplasty today I was asked to provide a medical consultation to assist with management of his chronic medical problems. # s/p right knee arthroplasty: Management per primary orthopedics. Pain control. PT/OT # depression: Continue Lexapro daily # Asthma: Continue home medications including montelukast continue a beer or inhaler as needed. # Hyperlipidemia: Continue his statin and 20 mg # prostate cancer: Continue to Follow up with urology outpatient # DVT prophylaxis: Per primary. [facility] Vital Signs Vital Signs Date Time Temp Pulse Resp B/P (MAP) Pulse Ox O2 Delivery O2 Flow Rate FiO2 09/21/20 15:25 62 18 127/73 (91) 97 Nasal Cannula 2 09/21/20 11:50 96.7 Home Medications Scheduled Aspirin (Aspirin EC) 81 Mg Tablet.dr, 81 MG PO DAILY Atorvastatin Calcium (Atorvastatin Calcium) 20 Mg Tablet, 20 MG PO QHS Escitalopram Oxalate (Escitalopram Oxalate) 10 Mg Tablet, 10 MG PO DAILY Fluticasone/Vilanterol (Breo Ellipta 200-25 Mcg INH) 1 Each Blst.w.dev, 1 PUFF INH DAILY Montelukast Sodium (Montelukast Sodium) 10 Mg Tablet, 10 MG PO QHS Multivitamin,Therapeutic (Thera-Tabs) 1 Each Tablet, 1 TAB PO DAILY Scheduled PRN Acetaminophen (Pain Reliever) 650 Mg Tablet.er, 650 MG PO Q8H PRN for PAIN Albuterol Sulfate (Proair Hfa) 8.5 Gm Hfa.aer.ad, 2 PUFF INH PRN PRN for SOB/COUGH Allergies Coded Allergies: No Known Allergies (Unverified , 09/16/20) APARNA DC MD Sep 21, 2020 17:59
--- NOTE | 2020-09-21 18:36 | RO ---
OPERATIVE NOTE DATE OF OPERATION: 09/21/2020 PREOPERATIVE DIAGNOSES: 1. Right knee tricompartmental degenerative arthritis. 2. Right knee retained guerline in the femur and the tibia. POSTOPERATIVE DIAGNOSES: 1. Right knee tricompartmental degenerative arthritis. 2. Right knee retained guerline in the femur and the tibia. PROCEDURES: 1. Right total knee arthroplasty using a size 5 Attune cruciate-retaining femoral component cemented, size 5 tibial tray, with a 6-mm rotating platform polyethylene insert, and a 35-mm polyethylene button. All components were cemented. Prosthesis was made by [employer]. It was an Attune Knee. 2. Removal of tibial staple. SURGEON: Ronan FUENTES MD ASSISTANTS: Isabel Dolan PA-C ANESTHESIA: Spinal with a right femoral nerve block. COMPLICATIONS: None. ESTIMATED BLOOD LOSS: 20 mL. SPECIMENS: Joint surface. PROCEDURE: Antibiotics were given intravenously preoperatively. A successful right femoral nerve block and then a spinal anesthetic were induced. The tourniquet was placed on the right upper thigh and not inflated. The right lower extremity was carefully prepped and draped in the usual sterile fashion, and then it was elevated, and after an appropriate time-out, the tourniquet was inflated. A longitudinal incision was made matching the previous medial curved parapatellar incision. Bovie electrocautery was used to coagulate crossing vessels down to the deep fascia. Some of the previous Ethibond sutures were removed. The arthrotomy was performed. Subperiosteal dissection on the proximal, medial, and lateral tibial plateau was performed. There was a significant amount of scar tissue and adhesions in the suprapatellar pouch, which were released and debrided, and then we were able to jose guadalupe the patella and then flex the knee. There were a surprising amount of degenerative changes, especially in the medial compartment which was eburnated with osteophytes and bare bone exposed on the femur. The drill was placed down the center of the femoral canal, followed by the intramedullary kamran. The distal femoral cutting jig was set at 9-mm resection level at 5 valgus for a right knee. The block was pinned into position. Distal femoral cut was performed. The AP sizing jig measured for a size 5 and 3 of external rotation for a right knee were dialed in. Pins were placed. The 4-in-1 block was applied. Anterior and posterior chamfer cuts performed. We then placed a sulcus osteotomy jig and performed the sulcus osteotomy. We then exposed the proximal tibia and used the extramedullary alignment jig to estimate being parallel to the mechanical axis referencing off of the medial tibial condyle at 4-mm resection level. The block was pinned into place. Secondary check with extramedullary kamran confirmed that we appeared to be parallel to the mechanical axis. Proximal tibial osteotomy thus was performed. A laminar exposure machine operator was placed medially and we performed a completion lateral meniscectomy, debriding the posterolateral osteophytes. We then placed the laminar exposure machine operator laterally and performed a completion medial meniscectomy, debriding the posteromedial osteophytes. The spacer block of 6 mm was good in flexion; however, it was quite snug in extension only. Thus, I did feel originally that the initial distal femoral cut was a bit thin, so I elected to take two more millimeters. Thus, the distal femoral jig was reapplied using the batwing device and then set back 2 mm and the distal femoral cut was performed. We then used the batwing device to reapply the 4-in-1 block, pinned it into position, and then performed the anterior and posterior chamfer cuts as well. We then trialed the spacer block and this time he had good extension with 6 mm and good stability to varus-valgus stress testing, both in flexion and in extension. We then exposed the proximal tibia, sized for a #5 tibial plateau tray, and then it was pinned into position. As we applied the reamer, just at the very bottom, it started to impact the medial tibial staple. The staple was identified in the proximal medial tibial metaphysis and then I had to use small osteotomes and a CoventrLikva stable remover to expose it and then remove the staple without difficulty. This allowed the drill to be placed and seated, followed by the broach. The trial polyethylene was then applied. Distal femoral trial applied. The knee was brought into extension, patella everted, patella osteotomy performed, sized for a 35 button, lug holes drilled, trial placed, and patella femoral tracking was anatomic. We drilled the lug holes for the femur and then removed all of the trials, copiously pulsatile lavaged and irrigated out the knee joint, as I did several times throughout the surgery. I placed Exparel in the subperiosteal tissues in the distal femur and the proximal tibia. Then, Ms. Isabel Dolan mixed the cement on the back table as I prepared the bony surfaces for cementing. She was critical to the success of this difficult procedure by helping with appropriate soft tissue retraction, helped to close the wound, helped to mix the cement, helped to prepare the patient for surgery, amongst many other tasks, to allow me to perform the operation smoothly, efficiently, and safely. Once all of the bony surfaces were thoroughly irrigated and dried, we then cemented the tibial tray, removing excess cement, placed the polyethylene, cemented the femoral component, removed excess cement, placed the knee to extension, and then cemented the patellar component and held it with a clamp with the knee in extension until the cement hardened. As we were awaiting this, I irrigated out the knee joint once again, and then placed tranexamic acid, and then began closing the apex of the arthrotomy with two #1 PDS sutures. The medial parapatellar area was closed with a single #1 PDS suture and then a double-armed #1 Stratafix used to close the capsule. I copiously irrigated and then released the tourniquet, and then closed the deep subdermal tissues with interrupted 2-0 PDS sutures. The skin was closed with guerline and covered by an Optifoam and dry sterile bulky dressing. He was then transferred to the recovery room in stable condition. There were no intraoperative complications. [facility]
--- NOTE | 2020-09-21 18:41 | REP ---
INDICATION: POST OP IN PACU COMPARISON: None. TECHNIQUE: Two views right knee. FINDINGS: Metallic fixation is seen in the distal femur. There is a total knee prosthesis present in good position. Osseous structures are intact and aligned. Metallic skin guerline are seen anteriorly. IMPRESSION: Total knee arthroplasty appears to be in good position. <Electronically signed by Gene Trujillo > 09/21/20 4850
[2020-09-21 19:00] VITALS: BP 128/65
[2020-09-21] MEDS ORDERED: MORPHINE 4 MG/ML 1ML VIAL/SYRINGE (J2270) IV PRN (19:00)
[2020-09-21] MEDS ORDERED: PERCOCET 5MG/325MG TAB PO PRN (19:00)
[2020-09-21] MEDS ORDERED: MORPHINE 2 MG/ML 1ML VIAL (J2270) IV PRN (19:00)
[2020-09-21 19:30] VITALS: BP 133/86
[2020-09-21 20:30] VITALS: BP 124/85
[2020-09-21] MEDS: ASPIRIN 81 MG ENTERIC TAB PO SCH (20:44)
[2020-09-21 21:00] VITALS: O2SAT 93
[2020-09-21 21:30] VITALS: BP 143/99
[2020-09-21 22:30] VITALS: BP 123/65
[2020-09-21] MEDS: ceFAZolin SOD 2 GM in IV 1 EA IV SCH (23:23)
[2020-09-22 02:30] VITALS: BP 122/65
[2020-09-22] MEDS: ACETAMINOPHEN TAB 650MG DOSE (2X325MG) PO PRN ×2 (03:11→10:32)
[2020-09-22 06:00] VITALS: BP 125/69
[2020-09-22] MEDS ORDERED: PERC5TAB12 PO (06:16)
[2020-09-22] MEDS ORDERED: ECOT81TA5 PO (06:16)
--- OUTSIDE RECORDS SUMMARY | 2020-09-22 06:28 | CCD | Continuity of Care Document ---
Author Author Omi CARNEY Organization Unknown Address [address] [facility] [address] [place] [address] Phone [phone] Care Team Providers Care Size Marker Name Role Phone Burke Rodriguez MD AUTM [phone] Angely Carney DO AUTM Unavailable Tommie Jernigan MD AUTM [phone] [facility] AUTM [phone] [facility] AUTM [phone] Problems Active Problems Provider Date Anxiety state [...] puff By Mouth Once Daily 60units Angely Carney,DO 03/22 Proair HFA 108(90Base) mcg/Act Aer osol 2 puffs four times a day as needed 25.5gm Angely Carney,DO 05/13/2016 Azelastine HCL (Nasal) 0.15% Solut ion 2 sprays each nostril at night prn Unknown Aspirin [address] 1 po daily Unknown History Medications Glucosamine Chondroitin 1500 Complex Max imum Strength 1500Com Capsules one po bid. 60caps Angely Carney,DO 03/30/2020 - 09/15/2020 Medications Administered in Office Medication SIG Qnty Indications Ordering Provider Date Immunization Adminstration,1 Vaccine/Tox oid Injection Angely Hugo,DO 03/30/2020 Immunizations CPT Code Status Date Vaccine Lot # U-Flu Given 04/28/2020 Influenza,Unspecified [id number] Given 03/30/2020 Pneumovax 23 [id number] Given 05/25/2012 Fluvirin Virus Vaccine [id number] Given 03/01/2012 Pneumovax 23 Vital Signs Date [...] Result H/L Range Note Prothrombin Time/Inr 09/16/2020 [facility] enter [address] [place] [address] [phone] Prothrombin Time 13.2 seconds Normal 12.5-14.3 Inr 0.98 Normal 1 Comprehensive Metabolic Profil 09/16/2020 [facility] [address] [place] [address] [phone] Glucose, Fasting 133 mg/dL High 70-100 Blood [...] Ratio 1.6 Normal CBC With Differential 09/16/[address] [address] [phone] White Blood Count 9.2 10 Normal 4.0-10.0 [...] 36.0-66.0 Lymph % 20.9 % Low 24.0-44.0 [place] % 7.1 % High 0.0-5.0 Eos % 0.8 % Normal 0.0-3.0 Baso % 0.3 % Normal 0.0-1.0 Immature Granulocyte % 0.5 % Normal 0-3.0 Nucleated Red Blood Cell % 0.0 % Normal 0-0 Neutrophils # 6.5 10 Normal 1.5-8.5 Lymph # 1.9 10 Normal 1.5-5.0 [place] # 0.7 10 Normal 0.0-0.8 Eos # 0.1 10 Normal 0.0-0.5 Baso # 0.0 10 Normal 0.0-0.2 Laboratory test finding 09/16/2020 [facility] [address] [place] [address] [phone] Erythrocyte Sedimentation Rate 3 mm/hr Normal 0 -20 PT & Aptt 09/15/2020 [facility] nter [address] [place] [address] [phone] Prothrombin Time 13.1 seconds Normal 12.5-14.3 Inr 0.97 Normal 3 Partial Thromboplastin Time 32.1 seconds Normal 24.2-38.5 Complete Blood Count 09/15/2020 [facility] [employer] [facility] milagros monge Director Sales Training: [place] [address] [phone] WBC 8.0 x10*3/UL 4.1 - 10.9 RBC [...] 2.0 - 7.8 Comprehensive Chem Profile 09/15/2020 [facility] Berry Director Sales Training: [place] [address] [phone] Glucose 101 mg/dL High 74 - 99 [...] mL/min >60 6 Complete Blood Count 03/30/2020 [facility] [employer] [facility] Director Sales Training: [place] [address] [phone] WBC 8.1 x10*3/UL 4.1 - 10.9 RBC [...] 2.0 - 7.8 Comprehensive Chem Profile 03/30/2020 [facility] Director Sales Training: [place] [address] [phone] Glucose 101 mg/dL High 74 - 99 [...] 60 mL/min >60 8 Lipid Profile 03/30/2020 [facility] , Director Sales Training: [place] [address] [phone] Cholesterol 206 mg/dL High 131 - 200 Triglycerides 185 mg/dL High 30 - 150 HDL Cholesterol 54 mg/dL 35 - 60 LDL (Calculated) 115 CALC 50 - 159 Laboratory test finding 03/30/2020 [facility] [employer] [facility] Director Sales Training: [place] [address] [phone] Thyroid Stimulating Hormone 0.79 uIU/mL 0.3 6 [...] Little GFR Left ESRD GFR <15 on DECORATIVE CUTTING MACHINE TENDER 3 THERAPUTIC HUMAN INR VALUES INDICATIONS NORMAL [...] LITTLE GFR LEFT ESRD GFR <15 ON DECORATIVE CUTTING MACHINE TENDER 7 100-125 mg/dL PRE-DIABET ES/FASTING >126 mg/dL DIABETES/FASTING 8 CHRONIC KIDNEY DISEASE STAGI NG PER NKF STAGE I & II GFR >= 60 NORMAL TO MILDLY DECREASED STAGE III GFR 30-59 MODERATELY DECREASED STAGE IV GFR 15-29 SEVERELY DECREASED STAGE V GFR <15 VERY LITTLE GFR LEFT ESRD GFR <15 ON DECORATIVE CUTTING MACHINE TENDER Procedures Date Code Description Status 09/15/2020 23729 EKG/Interpretation & Report Comp leted 03/30/2020 28514 Removal Skin Tags 1-15 Completed 12/12/2011 31778000 Colonoscopy Completed Medical Devices Description No Information Available Encounters Type Date Location Provider Dx Diagnosis Office Visit 09/15/2020 10:00a [facility] santiago DO Z01.810 Encounter for preprocedural cardiovascul ar examination M17.11 Unilateral primary osteoarth ritis, right knee I49.3 Ventricular premature depola rization E78.5 Hyperlipidemia, unspecified J45.40 Moderate persistent asthma, uncomplicated F41.1 Generalized anxiety disorder Office Visit 03/30/2020 10:40a [facility] garnett DO L91.8 Other hypertrophic disorders of the skin M17.11 Unilateral primary osteoarth ritis, right knee J45.40 Moderate persistent asthma, uncomplicated E78.5 Hyperlipidemia, unspecified F41.1 Generalized anxiety disorder Z23 Encounter for immunization Assessments Date Code Description Provider 09/15/2020 Z01.810 Encounter for preprocedural card iovascular examination Angely Hugo,DO 09/15/2020 M17.11 Unilateral primary osteoarthriti s, right knee Angely Hugo,DO 09/15/2020 I49.3 Ventricular premature depolariza tion Angely Hugo,DO 09/15/2020 E78.5 Hyperlipidemia, unspecified Chano yulisa Hugo,DO 09/15/2020 J45.40 Moderate persistent asthma, unco mplicated Angely Carney,DO 09/15/2020 F41.1 Generalized anxiety disorder Naif Carney,DO 03/30/2020 L91.8 Other hypertrophic disorders of the skin Angely Hugo,DO 03/30/2020 M17.11 Unilateral primary osteoarthriti s, right knee Angely Hugo,DO 03/30/2020 J45.40 Moderate persistent asthma, unco mplicated Angely Hugo,DO 03/30/2020 E78.5 Hyperlipidemia, unspecified Chano Carney,DO 03/30/2020 F41.1 Generalized anxiety disorder Naif Carney,DO 03/30/2020 Z23 Encounter for immunization Angely Carney DO Plan of Treatment Future Appointment(s):* 09/30/2020 8:20 am - Angely Carney DO at [facility] 03/30/2020 - Angely Carney DO* [...]
--- OUTSIDE RECORDS SUMMARY | 2020-09-22 06:28 | CCD ---
Continuity of Care Document (CCD) Created on: 09/21/2020 Omi Dean External Reference #: [id number] : [id number] Sex: Male Author Organization Unknown Address Unknown Phone Unavailable Care Team Providers Care Artist Scientific Name Role Phone Burke Rodriguez MD AUTM [phone] Angely Arias DO AUTM Unavailable Tommie Jernigan MD AUTM [phone] [facility] AUTM [phone] [facility] AUTM [phone] Problems Active Problems Provider Date Anxiety state [...] Tablet By Mouth AT Bedtime 30tabs Angely rAias DO 05/27 Multivitamin Men 50+ Men 50+ [...] Vaccine Lot # U-Flu Given 04/28/2020 Influenza,Unspecified [id number] Given 03/30/2020 Pneumovax 23 [id number] Given 05/25/2012 Fluvirin Virus Vaccine [id number] Given 03/01/2012 Pneumovax 23 Vital Signs Date [...] Date Facility Test Result H/L Range Note Type & Screen -Incl Blood Type,Freddie,AB SC 09/21/[address] [id number] [phone] Blood Type O POSITIVE Normal AB Screen (Indirect Maricruz)Vis NEGATIVE Normal Prothrombin Time/Inr 09/16/2020 [facility] C enter [address] [place] [address] [id number] [phone] Prothrombin Time 13.2 seconds Normal 12.5-14.3 Inr 0.98 Normal 1 Comprehensive Metabolic Profil 09/16/[address] [id number] [phone] Glucose, Fasting 133 mg/dL High 70-100 Blood [...] 1.6 Normal CBC With Differential 09/16/[address] [id number] [phone] White Blood Count 9.2 10 Normal 4.0-10.0 [...] 36.0-66.0 Lymph % 20.9 % Low 24.0-44.0 Towns % 7.1 % High 0.0-5.0 Eos % 0.8 % Normal 0.0-3.0 Baso % 0.3 % Normal 0.0-1.0 Immature Granulocyte % 0.5 % Normal 0-3.0 Nucleated Red Blood Cell % 0.0 % Normal 0-0 Neutrophils # 6.5 10 Normal 1.5-8.5 Lymph # 1.9 10 Normal 1.5-5.0 Towns # 0.7 10 Normal 0.0-0.8 Eos # 0.1 10 Normal 0.0-0.5 Baso # 0.0 10 Normal 0.0-0.2 Laboratory test finding 09/16/2020 [facility] [address] [place] [address] [phone] Erythrocyte Sedimentation Rate 3 mm/hr Normal 0 -20 PT & Aptt 09/15/2020 [facility] nter [address] [place] [address] [phone] Prothrombin Time 13.1 seconds Normal 12.5-14.3 Inr 0.97 Normal 3 Partial Thromboplastin Time 32.1 seconds Normal 24.2-38.5 Complete Blood Count 09/15/2020 [place] [employer] monge [employer] Engineer: [place] [address] [phone] WBC 8.0 x10*3/UL 4.1 - 10.9 RBC [...] - 7.8 Comprehensive Chem Profile 09/15/2020 [place] mil[facility] Berry [employer] Engineer: [place] [address] [phone] Glucose 101 mg/dL High 74 - 99 [...] mL/min >60 6 Complete Blood Count 03/30/2020 [place] [employer]os[employer] Engineer: [place] [address] [phone] WBC 8.1 x10*3/UL 4.1 - 10.9 RBC [...] - 7.8 Comprehensive Chem Profile 03/30/2020 [facility] ingram [employer] Engineer: Dr Ian Warren [place], [place] [id number] [phone] Glucose 101 mg/dL High 74 - 99 [...] 60 mL/min >60 8 Lipid Profile 03/30/2020 [facility] , [employer]os[employer] Engineer: Dr Ian Warren [place] [id number] [phone] Cholesterol 206 mg/dL High 131 - 200 Triglycerides 185 mg/dL High 30 - 150 HDL Cholesterol 54 mg/dL 35 - 60 LDL (Calculated) 115 CALC 50 - 159 Laboratory test finding 03/30/2020 [place] [employer] Nanosystems Engineer: [place] [address] [phone] Thyroid Stimulating Hormone 0.79 uIU/mL 0.3 6 [...] Little GFR Left ESRD GFR <15 on COMMUNICATION TECHNICIAN 3 THERAPUTIC HUMAN INR VALUES INDICATIONS NORMAL [...] LITTLE GFR LEFT ESRD GFR <15 ON COMMUNICATION TECHNICIAN 7 100-125 mg/dL PRE-DIABET ES/FASTING >126 mg/dL DIABETES/FASTING 8 CHRONIC KIDNEY DISEASE STAGI NG PER NKF STAGE I & II GFR >= 60 NORMAL TO MILDLY DECREASED STAGE III GFR 30-59 MODERATELY DECREASED STAGE IV GFR 15-29 SEVERELY DECREASED STAGE V GFR <15 VERY LITTLE GFR LEFT ESRD GFR <15 ON COMMUNICATION TECHNICIAN Procedures Date Code Description Status 09/15/2020 82748 EKG/Interpretation & Report Comp leted 03/30/2020 60266 Removal Skin Tags 1-15 Completed 12/12/2011 03441121 Colonoscopy Completed Medical Devices Description No Information Available Encounters Type Date Location Provider Dx Diagnosis Office Visit 09/15/2020 10:00a [place] [facility] POrion santiago DO Z01.810 Encounter for preprocedural cardiovascul ar examination M17.11 Unilateral primary osteoarth ritis, right knee I49.3 Ventricular premature depola rization E78.5 Hyperlipidemia, unspecified J45.40 Moderate persistent asthma, uncomplicated F41.1 Generalized anxiety disorder Office Visit 03/[place]2020 10[place] [place] [place] L91.8 Other hypertrophic disorders of the skin M17.11 Unilateral primary osteoarth ritis, right knee J45.40 Moderate persistent asthma, uncomplicated E78.5 Hyperlipidemia, unspecified F41.1 Generalized anxiety disorder Z23 Encounter for immunization Assessments Date Code Description Provider 09/15/2020 Z01.810 Encounter for preprocedural card iovascular examination Angely Arias, 09/15/2020 M17.11 Unilateral primary osteoarthriti s, right knee Angely Arias,DO 09/15/2020 I49.3 Ventricular premature depolariza tion Angely Arias,DO 09/15/2020 E78.5 Hyperlipidemia, unspecified Chano Arias,DO 09/15/2020 J45.40 Moderate persistent asthma, unco mplicated Angely Arias,DO 09/15/2020 F41.1 Generalized anxiety disorder Naif Arias,DO 03/30/2020 L91.8 Other hypertrophic disorders of the skin Angely Arias,DO 03/30/2020 M17.11 Unilateral primary osteoarthriti s, right knee Angely Arias,DO 03/30/2020 J45.40 Moderate persistent asthma, unco mplicated Angely Arias,DO 03/30/2020 E78.5 Hyperlipidemia, unspecified Chano Arias,DO 03/30/2020 F41.1 Generalized anxiety disorder Naif Arisa,DO 03/30/2020 Z23 Encounter for immunization Angely Arias DO Plan of Treatment Future Appointment(s):* 09/30/2020 8:20 am - Angely Arias DO at [facility] 03/30/2020 - Angely Arias DO* [...]
--- OUTSIDE RECORDS SUMMARY | 2020-09-22 06:29 | CCD ---
Author Author [facility] Organization [facility] Address Unknown Phone Unavailable Care Team Providers Care Leather Colorer Name Role Phone Hugo, Angely DO Unavailable [...] Unavailable Unavailable Hugo, Angely DO Unavailable Unavailable Uhgo, Angely DO Unavailable Unavailable Hugo, Angely DO [...] MD Unavailable Unavailable MADCANDIOOJulio MD Unavailable Unavailable MADCANIDOOJulio MD Unavailable Unavailable MADCANDIOOJulio MD Unavailable Unavailable [...] Okeefe MD Unavailable Unavailable Lio, N Alvarez PHARMACEUTICAL SALES Unavailable Unavailable Lio, N Alvarez PHARMACEUTICAL SALES Unavailable Unavailable Lio, N Alvarez PHARMACEUTICAL SALES Unavailable Unavailable [place], N Alvarez PHARMACEUTICAL SALES Unavailable Unavailable [place], N Alvarez PHARMACEUTICAL SALES Unavailable Unavailable [place], N Alvarez PHARMACEUTICAL SALES Unavailable Unavailable Lio, N Alvarez PHARMACEUTICAL SALES Unavailable Unavailable Lio, N Alvarez PHARMACEUTICAL SALES Unavailable Unavailable [place], N Alvarez PHARMACEUTICAL SALES Unavailable Unavailable [place], N Alvarez PHARMACEUTICAL SALES Unavailable Unavailable Lio, N Alvarez PHARMACEUTICAL SALES Unavailable Unavailable Lio, N Alvarez PHARMACEUTICAL SALES Unavailable Unavailable Lio, N Alvarez PHARMACEUTICAL SALES Unavailable Unavailable [place], N Alvarez PHARMACEUTICAL SALES Unavailable Unavailable Lio, N Alvarez PHARMACEUTICAL SALES Unavailable Unavailable [place], N Alvarez PHARMACEUTICAL SALES Unavailable Unavailable [place], N Alvarez PHARMACEUTICAL SALES Unavailable Unavailable Lio, N Alvarez PHARMACEUTICAL SALES Unavailable Unavailable [place], N Alvarez PHARMACEUTICAL SALES Unavailable Unavailable [place], N Alvarez PHARMACEUTICAL SALES Unavailable Unavailable [place], N Alvarez PHARMACEUTICAL SALES Unavailable Unavailable Lio, N Alvarez PHARMACEUTICAL SALES Unavailable Unavailable [place], N Alvarez PHARMACEUTICAL SALES Unavailable Unavailable Lio, N Alvarez PHARMACEUTICAL SALES Unavailable Unavailable [place], N Alvarez PHARMACEUTICAL SALES Unavailable Unavailable [place], N Alvarez PHARMACEUTICAL SALES Unavailable Unavailable [place], N Alvarez PHARMACEUTICAL SALES Unavailable Unavailable [place], N Alvarez PHARMACEUTICAL SALES Unavailable Unavailable [place], N Alvarez PHARMACEUTICAL SALES Unavailable Unavailable [place], N Alvarez PHARMACEUTICAL SALES Unavailable Unavailable Lio, N Alvarez PHARMACEUTICAL SALES Unavailable Unavailable [facility], SPARISIAN Unavailable Unavailable Re-disclosure [...] is protected by Article 27-F of the [facility] Public Health law. If you continue you may have access to information: Regarding HIV / AIDS; Provided by facilities licensed or operated by the [facility] Office of Mental Health; or Provided by the [facility] Office for People With Developmental Disabilities. If such information is present, then the following [facility] mandated warning applies: This information has been [...] law may result in a fine or skilled nursing sentence or both. A general authorization for the release of medical or other information is NOT sufficient authorization for further disc losure. Family History Family Member Name Family Member Gender Family Member Status Date o f Status Description Data Source(s) Unknown Male Problem MEDENT ([facility]) Unknown Male Problem MED[facility] ([facility] ) Unknown Male Problem [facility] Unknown Unknown Problem MED[facility] ([facility] [place]) Encounters Encounter Providers Location Date Indications Data Source(s ) Office Visit Attender: Angely Kramer 09/15 09:00:00 AM EST MEDENT ([facility] ) Outpatient Attender: Alvarez AVITIA-SJP.OKSANA 020 12:00:00 AM EST - 07/20/2020 09:30:19 AM EST [facility] Outpatient Referrer: Alvarez AVITIA-SJPZackOKSANA 07/02/2020 12 :00:00 AM EST [facility] Outpatient Attender: Rosendo Rodriguez MD Physical Therap y 06/15/2020 08:15:00 AM EDT MEDENT ([facility]) Outpatient Attender: Alvarez AVITIA-SJPZackOKSANA 020 09:35:23 AM EDT - 05/18/2020 10:08:07 AM EDT [facility] Outpatient Attender: Rosendo Rodriguez MD Physical Therap y 04/28/2020 08:00:00 AM EDT MEDENT ([facility]) Outpatient Attender: ABIGAILALEJANDRO [facility] 04/23/2020 12:02:19 AM EDT [facility] Office Visit Attender: Angely Kramer 03/30 10:40:00 AM EDT MEDENT ([facility] ) [facility] 01/28/2020 07:54:27 PM EDT [facility] Outpatient Attender: [facility] 01/18/2020 12:16:53 AM EDT [facility] Outpatient Attender: HEBER Gold/ Hannah kuhn 12/24/2019 10:50:00 AM EDT MEDENT ([facility]) Outpatient Attender: [facility] 08/23/2019 09:01:03 PM EST [facility] Outpatient Attender: [facility] 08/23/2019 10:42:01 AM EST [facility] Immunizations Vaccine Date Status Description Data Source(s) This CVX code allows reporting of a vacc ination when formulation is unknown (for example, when recording a Influenza vaccination when noted on a vaccination card) 04/28/2020 02:16:00 PM EDT completed MEDEN T ([facility]) pneumococcal polysaccharide PPV23 03/30/2020 11:05:00 AM EDT kilo PIERCE ([facility]) Medications Medication Brand Name Start Date Product Form Dose Route Admi nistrative Instructions Pharmacy Instructions Status Indications Reaction Description Data Source(s) chlorhexidine gluconate 40 MG/ML Medicated Liquid Soap [Hibi clens] Hibiclens 09/16/2020 12:00:00 AM EST active MEDENT ([facility]) 2 % 09/16/2020 12:00:00 [...] 09/16/2020 12:00:00 AM EST active [facility] 90 mcg/actuation 08/10/2020 12:00:00 AM EST HFA aerosol inha ler 8 INHALE TWO PUFFS BY MOUTH FOUR TIMES A DAY NEEDED INHALE TWO PUFFS BY MOUTH FOUR TIMES A DAY NEEDED SOLD: 08/12/2020 [facility] 90 mcg/actuation 08/10/2020 12:00:00 AM EST HFA aerosol inha ler 8 INHALE TWO PUFFS BY MOUTH FOUR TIMES A DAY NEEDED INHALE TWO PUFFS BY MOUTH FOUR TIMES A DAY NEEDED SOLD: 09/06/2020 [facility] 650 mg 08/04/2020 12:00:00 AM EST tablet extended release 90 TAKE ONE TABLET BY MOUTH EVERY 8 HOURS NEEDED TAKE ONE TABLET BY MOUTH EVERY 8 HOURS A S NEEDED SOLD: 09/06/2020 [facility] 650 mg 08/04/2020 12:00:00 AM EST tablet extended release 90 TAKE ONE TABLET BY MOUTH EVERY 8 HOURS NEEDED TAKE ONE TABLET BY MOUTH EVERY 8 HOURS A S NEEDED SOLD: 08/07/2020 [facility] 200-25 mcg/dose 07/06/2020 12:00:00 AM [...] TABLET BY MOUTH AT BEDTIME SOLD: 09/06/2020 [facility] montelukast 10 MG Oral [...] TABLET BY MOUTH EVERY DAY SOLD: 08/16/2020 [facility] atorvastatin 20 MG Oral Tablet atorvastatin (LIPITOR) 20 MG tablet atorvastatin (LIPITOR) 20 MG tablet 05/18/2020 12:00:00 AM EDT 20 mg Oral active Take 1 tablet (20 mg total) by mouth daily [facility] 8 HR Acetaminophen 650 MG Extended Relea se Oral Tablet [Mapap] MAPAP ARTHRITIS PAIN 650 MG CR tablet MAPAP ARTHRITIS PAIN 650 MG CR tablet 04/29/2020 12:00 :00 AM EDT 650 mg Oral active Take 650 mg by mo uth as needed [facility] 30 ACTUAT fluticasone furoate 0.2 MG/ACT UAT / vilanterol 0.025 MG/ACTUAT Dry Powder Inhaler [Breo] BREO ELLIPTA 200-25 MCG/INH AEPB BREO ELLIPTA 200-25 MCG/INH AEPB 04/28/2020 12:00:00 AM EDT active As directed [facility] 650 mg 03/30/2020 12:00:00 AM EDT tablet extended release 90 TAKE ONE TABLET BY MOUTH EVERY 8 HOURS NEEDED TAKE ONE TABLET BY MOUTH EVERY 8 HOURS A S NEEDED SOLD: 06/07/2020 [facility] 650 mg 03/30/2020 12:00:00 AM EDT tablet extended release 90 TAKE ONE TABLET BY MOUTH EVERY 8 HOURS NEEDED TAKE ONE TABLET BY MOUTH EVERY 8 HOURS A S NEEDED SOLD: 07/08/2020 [facility] Glucosamine Chondroitin 1500 Complex Maximum Strength 03/30/2020 12:00:00 AM EDT ORAL completed MEDENT ([facility]) 650 mg 03/30/2020 12:00:00 AM EDT tablet extended release 90 TAKE ONE TABLET BY MOUTH EVERY 8 HOURS NEEDED TAKE ONE TABLET BY MOUTH EVERY 8 HOURS A S NEEDED SOLD: 05/07/2020 [facility] 8 HR Acetaminophen 650 MG Extended Release Oral Tablet [Tylenol] Tylenol 8 Hour Arthritis Pain 03/30/2020 12:00:00 AM EDT ORAL active MEDENT ([facility]) Immunization Adminstration,1 Vaccine/Toxoid 03/30/2020 12:00 :00 AM EDT completed MEDENT ([facility]) Medication administered onsite 650 mg [...] 12/10/2019 12:00:00 AM EDT ORAL active MEDENT ([facility], ) 10 mg 12/10/2019 12:00:00 AM EDT [...] type / Coverage type Policy ID Covered libertarian ID Covered libertarian's relationship to yip Policy Yip Plan Information BCBS EMPIRE LANE DIV [id number] SP [id number] [employer] [id number] SP [id number] DIV [id number] SP [id number] EXCELLUS BCBS [id number] EXCELLUS BCBS [id number] Juanis YLS [id number] [place] Plan P [id number] S [id number] [employer] [place] Commercial [id number] Self [id number] [place] [employer] Health Maintenance Organization (HMO) [id number] Self [id number] [employer] [place] Health Maintenance Organization (HMO) [id number] Self [id number] [employer] [place] Commercial [id number] Self [id number] [employer] [id number] S [id number] BCBS EMPIRE [id number] S [id number] [place] [employer] (HMO) [id number] Self [id number] [place] Plan Commercial [id number] Self [id number] [employer] [id number] S [id number] BCBS EMPIRE [id number] S [id number] DIV [id number] SP [id number] [facility] [facility] [place] Health Maintenance Organization (HMO) [id number] Self [id number] [employer] [facility] [place] Health Maintenance Organization (HMO) [id number] Self [id number] [employer] [place] Commercial [id number] Self [id number] [employer] [place] Commercial [id number] Self [id number] [employer] O [id number] S [id number] [place] P [id number] S [id number] EMPIRE PLAN C U [id number] Self [id number] [place] P [id number] S [id number] [place] Plan Health Maintenance Organization (HMO) [id number] Self [id number] [facility] [id number] SP [id number] [employer] [place] Commercial [id number] Self [id number] [place] Plan Health Maintenance Organization (HMO) [id number] Self [id number] [place] Plan [facility] Commercial [id number] Self [id number] [facility] [facility] [place] Commercial [id number] Self [id number] [facility] [facility] [place] Commercial Self [place] Plan [facility] [facility] Commercial Self BCBS EMPIRE LANE DIV [id number] SP [id number] [facility] [facility] [place] Health Maintenance Organization (HMO) Self EMPIRE (STATE EMP) O [id number] S [id number] Problems, Conditions, and Diagnoses Code Display Name Description Problem Type Effective Dates Data Source(s) E78.5 Hyperlipidemia Hyperlipidemia [id number] 05/18/2020 12:00: 00 AM EDT [facility] R07.89 Other chest pain Other chest pain Diagnosis 07/20/2020 08 :57:08 AM [facility] I49.3 Ventricular premature depolarization Ventricular premature depolarization Diagnosis 07/20/2020 08:57:08 AM [facility] E78.5 Hyperlipidemia, unspecified Hyperlipidemia, unspecifie d Diagnosis 07/20/2020 08:57:08 AM [facility] Surgeries/Procedures Procedure Description Date Indications Data Source(s) ECG ROUTINE ECG W/LEAST 12 LDS W/I&R 09/15/2020 12:00: 00 AM EST STAN ([facility]) ARTHROCENTESIS ASPIR&/INJECTION MAJOR JT/BURSA 020 12:00:00 AM EDT [facility] ([facility] RADIOLOGIC EXAMINATION KNEE 3 VIEWS 04/28/2020 12:00:0 0 AM EDT [facility] ([facility] ) 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 ANY AREA UP&W/15 03/30 12:00:00 AM EDT ST[facility] ([facility]) Colonoscopy 12/24/2019 12:00:00 AM EDT Julio GARCIA ([facility] [place]) Results ID Date Data Source [id number] 09/21/2020 11:37:00 AM EST MEDENT ([facility]) Name Value Range Interpretation Code Description Data Joanie rce(s) Supporting Document(s) Blood Type Laboratory test result MEDENT ([facility]) AB Screen (Indirect Maricruz)Vis Laboratory test result MEDENT ([facility]) ID Date Data Source [id number] 09/16/2020 01:30:00 PM EST MED[facility] ([facility]) Name Value Range Interpretation Code Description Data Joanie rce(s) Supporting Document(s) Erythrocyte sedimentation rate by Westergren method 3 mm/hr 0-20 MEDENT ([facility]) ID Date Data Source [id number] 09/16/2020 01:30:00 PM EST MED[facility] ([facility]) Name Value Range Interpretation Code Description Data Joanie rce(s) Supporting Document(s) Hemoglobin 15.3 g/dL 13.5-17.5 [facility] White Blood Count 9.2 10 4.0-10.0 MED[facility] ([facility]) Red Blood Count 4.91 10 4.30-6.10 MED[facility] ([facility]) Mean Corpuscular Hemoglobin 31.2 pg 27.0-33.0 [place] DENT ([facility]) Hematocrit 45.8 % 42.0-52.0 MED[facility] ([facility]) Mean Corpuscular Volume 93.3 fl 80.0-96.0 MEDENT ([facility]) Platelet Count, Automated 234 10 150-450 MEDE NT ([facility]) Mean Corpuscular HGB Conc 33.4 g/dL 32.0-36.5 MEDE NT ([facility]) Red Cell Distribution Width 11.8 % 11.5-14.5 [place] [facility] ([facility]) Lymph % 20.9 % 24.0-44.0 [facility]) Neutrophils % 70.4 % 36.0-66.0 [facility] ([facility]) Mcpherson % 7.1 % 0.0-5.0 [facility] Eos % 0.8 % 0.0-3.0 [facility] Baso % 0.3 % 0.0-1.0 [facility] Immature Granulocyte % 0.5 % 0-3.0 MED[facility] ([facility]) Lymph # 1.9 10 1.5-5.0 [facility]) Nucleated Red Blood Cell % 0.0 % 0-0 MED ENT ([facility]) Neutrophils # 6.5 10 1.5-8.5 MED[facility] ([facility]) Eos # 0.1 10 0.0-0.5 [facility] Mcpherson # 0.7 10 0.0-0.8 [facility] ([facility]) Baso # 0.0 10 0.0-0.2 [facility]) ID Date Data Source [id number] 09/16/2020 01:30:00 PM EST MED[facility] ([facility]) Name Value Range Interpretation Code Description Data Joanie rce(s) Supporting Document(s) Blood Urea Nitrogen 19 mg/dL 7-18 [facility] ([facility]) Glucose, Fasting 133 mg/dL 70-100 [facility] ([facility]) Creatinine For GFR 0.87 mg/dL 0.70-1.30 [facility] ([facility]) Glomerular Filtration Rate Laboratory test result MEDENT ([facility]) <content>Units are mL/min/1.73 m2</content>
<content></content>
<content>Chronic Kidney Disease Staging per NKF:</content>
<content></content>
<content>Stage I & II GFR >=60 Normal to Mildly Decreased</content>
<content>Stage III GFR 30- 59 Moderately Decreased</content>
<content>Stage IV GFR 15-29 Severely Decreased</content>
<content>Stage V GFR <15 Very Little GFR Left</content>
<content>ESRD GFR <15 on INSURANCE WRITER</content>
<content></content> Sodium Level 140 meq/L 136-145 MEDENT ([facility]) Carbon Dioxide Level 33 meq/L 21-32 [facility] ([facility]) Chloride Level 102 meq/L 98-107 [facility] Potassium Serum 4.2 meq/L 3.5-5.1 MED[facility] ([facility]) Calcium Level 9.7 mg/dL 8.8-10.2 MED[facility] ([facility] Ast/Sgot 20 U/L 7-37 [facility] ([facility]) Anion Gap 5 meq/L 8-16 MED[facility] ([facility]) Bilirubin,Total 0.9 mg/dL 0.2-1.0 MED[facility] ([facility]) Alt/SGPT 39 U/L 12-78 MED[facility] ([facility]) Alkaline Phosphatase 99 U/L 45-117 [facility] ([facility] Albumin/Globulin Ratio 1.6 [facility] Total Protein 7.0 GM/DL 6.4-8.2 [facility] ([facility]) Albumin 4.3 GM/DL 3.2-5.2 MED[facility] ([facility]) ID Date Data Source [id number] 09/16/2020 01:30:00 PM EST MEDENT ([facility]) Name Value Range Interpretation Code Description Data Joanie rce(s) Supporting Document(s) Prothrombin Time 13.2 s 12.5-14.3 [facility] Inr 0.98 MED[facility] ([facility]) THERAPUTIC HUMAN INR VALUES INDICATIONS NORMAL RANGES PROPHYLAXIS/TREATMENT OF: VENOUS THROMBOSIS 2.0-3.0 PULMONARY EMBOLISM 2.0-3.0 PREVENTION OF SYSTEMIC EMBOLISM FROM: TISSUE HEART VALVES 2.0-3.0 ACUTE MYOCARDIAL INFARCTION 2.0-3.0 VALVULAR HEART DISEASE 2.0-3.0 ATRIAL FIBRILLATION 2.0-3.0 MECHANICAL VALVES(HIGH RISK) 2.5-3.5 RECURRENT MYOCARDIAL INFARCTION 2.5-3.5 ID Date Data Source [id number] 09/16/2020 01:30:00 PM EST MEDENT ([facility]) Name Value Range Interpretation Code Description Data Joanie rce(s) Supporting Document(s) Erythrocyte sedimentation rate by Westergren method 3 mm/hr 0-20 MED[facility] ([facility]) ID Date Data Source [id number] 09/16/2020 01:30:00 PM EST MEDENT ([facility]) Name Value Range Interpretation Code Description Data Joanie rce(s) Supporting Document(s) White Blood Count 9.2 10 4.0-10.0 MED[facility] ([facility]) Hemoglobin 15.3 g/dL 13.5-17.5 [facility] ([facility]) Red Blood Count 4.91 10 4.30-6.10 MED[facility] ([facility]) Mean Corpuscular Volume 93.3 fl 80.0-96.0 M EDENT ([facility]) Mean Corpuscular Hemoglobin 31.2 pg 27.0-33.0 MED[facility] ([facility]) Hematocrit 45.8 % 42.0-52.0 [facility] ([facility]) Red Cell Distribution Width 11.8 % 11.5-14.5 MED[facility] ([facility]) Mean Corpuscular HGB Conc 33.4 g/dL 32.0-36.5 MED[facility] ([facility]) Platelet Count, Automated 234 10 150-450 MED[facility] ([facility]) Neutrophils % 70.4 % 36.0-66.0 [facility] Lymph % 20.9 % 24.0-44.0 [facility] Eos % 0.8 % 0.0-3.0 [facility] ([facility]) Mcpherson % 7.1 % 0.0-5.0 [facility] ([facility]) Immature Granulocyte % 0.5 % 0-3.0 MED[facility] ([facility]) Baso % 0.3 % 0.0-1.0 [facility] ([facility] Nucleated Red Blood Cell % 0.0 % 0-0 MED ENT ([facility]) Neutrophils # 6.5 10 1.5-8.5 [facility] Lymph # 1.9 10 1.5-5.0 MED[facility] ([facility]) Mcpherson # 0.7 10 0.0-0.8 MED[facility] ([facility]) Eos # 0.1 10 0.0-0.5 MED[facility] ([facility]) Baso # 0.0 10 0.0-0.2 MED[facility] ([facility]) ID Date Data Source [id number] 09/16/2020 01:30:00 PM EST MED[facility] ([facility]) Name Value Range Interpretation Code Description Data Joanie rce(s) Supporting Document(s) Glucose, Fasting 133 mg/dL 70-100 MED[facility] ([facility]) Creatinine For GFR 0.87 mg/dL 0.70-1.30 MED[facility] ([facility]) Blood Urea Nitrogen 19 mg/dL 7-18 [facility] ([facility] Sodium Level 140 meq/L 136-145 MED[facility] ([facility]) Potassium Serum 4.2 meq/L 3.5-5.1 MED[facility] ([facility]) Glomerular Filtration Rate Laboratory test result MEDENT ([facility]) <content>Units are mL/min/1.73 m2</content>
<content></content>
<content>Chronic Kidney Disease Staging per NKF:</content>
<content></content>
<content>Stage I & II GFR >=60 Normal to Mildly Decreased</content>
<content>Stage III GFR 30- 59 Moderately Decreased</content>
<content>Stage IV GFR 15-29 Severely Decreased</content>
<content>Stage V GFR <15 Very Little GFR Left</content>
<content>ESRD GFR <15 on INSURANCE WRITER</content>
<content></content> Carbon Dioxide Level 33 meq/L 21-32 [facility] ([facility]) Chloride Level 102 meq/L 98-107 [facility] ([facility] Calcium Level 9.7 mg/dL 8.8-10.2 [facility] ([facility]) Ast/Sgot 20 U/L 7-37 MED[facility] ([facility]) Anion Gap 5 meq/L 8-16 [facility] Bilirubin,Total 0.9 mg/dL 0.2-1.0 MED[facility] ([facility]) Alkaline Phosphatase 99 U/L 45-117 [facility] ([facility]) Alt/SGPT 39 U/L 12-78 [facility] ([facility] Albumin 4.3 GM/DL 3.2-5.2 [facility] ([facility] Total Protein 7.0 GM/DL 6.4-8.2 [facility] ([facility]) Albumin/Globulin Ratio 1.6 MED[facility] ([facility]) ID Date Data Source [id number] 09/16/2020 01:30:00 PM EST MED[facility] ([facility]) Name Value Range Interpretation Code Description Data Joanie rce(s) Supporting Document(s) Inr 0.98 [facility] ([facility]) THERAPUTIC HUMAN INR VALUES INDICATIONS NORMAL RANGES PROPHYLAXIS/TREATMENT OF: VENOUS THROMBOSIS 2.0-3.0 PULMONARY EMBOLISM 2.0-3.0 PREVENTION OF SYSTEMIC EMBOLISM FROM: TISSUE HEART VALVES 2.0-3.0 ACUTE MYOCARDIAL INFARCTION 2.0-3.0 VALVULAR HEART DISEASE 2.0-3.0 ATRIAL FIBRILLATION 2.0-3.0 MECHANICAL VALVES(HIGH RISK) 2.5-3.5 RECURRENT MYOCARDIAL INFARCTION 2.5-3.5 Prothrombin Time 13.2 s 12.5-14.3 [facility] ([facility]) ID Date Data Source [id number] 09/16/2020 12:00:00 PM EST [facility] Name Value Range Interpretation Code Description Data Joanie rce(s) Supporting Document(s) SARS coronavirus 2 RNA Not Detected [facility] This lab was ordered by [facility] and reported by [facility]. ID Date Data Source [id number] 09/15/2020 10:55:00 AM EST MED[facility] ([facility]) Name Value Range Interpretation Code Description Data Joanie rce(s) Supporting Document(s) Prothrombin Time 13.1 s 12.5-14.3 [facility] ([facility]) Inr 0.97 [facility] THERAPUTIC HUMAN INR VALUES INDICATIONS NORMAL RANGES PROPHYLAXIS/TREATMENT OF: VENOUS THROMBOSIS 2.0-3.0 PULMONARY EMBOLISM 2.0-3.0 PREVENTION OF SYSTEMIC EMBOLISM FROM: TISSUE HEART VALVES 2.0-3.0 ACUTE MYOCARDIAL INFARCTION 2.0-3.0 VALVULAR HEART DISEASE 2.0-3.0 ATRIAL FIBRILLATION 2.0-3.0 MECHANICAL VALVES(HIGH RISK) 2.5-3.5 RECURRENT MYOCARDIAL INFARCTION 2.5-3.5 Partial Thromboplastin Time 32.1 s 24.2-38.5 [facility] ([facility]) ID Date Data Source [id number] 09/15/2020 10:51:00 AM EST [facility] ([facility]) Name Value Range Interpretation Code Description Data Joanie rce(s) Supporting Document(s) Creatinine 0.7 mg/dL 0.6-1.3 [facility] Glucose [Mass/volume] in Serum or Plasma 101 mg/dL 74-99 [facility] ([facility]) 100-125 mg/dL PRE-DIABETES/FASTING >126 mg/dL DIABETES/FASTING Urea nitrogen [Mass/volume] in Serum or Plasma 12 mg/dL 7-18 [facility] Chloride [Moles/volume] in Serum or Plasma 100 meq/L 98-107 [facility] ([facility]) Sodium [Moles/volume] in Serum or Plasma 140 meq/L 136-145 [facility] ([facility]) Potassium [Moles/volume] in Serum or Plasma 4.6 meq/L 3.5-5.1 [facility] ([facility]) Carbon dioxide, total [Moles/volume] in Serum or Plasma 32 meq/L 21 -32 [facility] ([facility]) Alkaline phosphatase isoenzyme [Units/volume] in Serum or Pl asma 100 mg/dL 46-116 [facility] ([facility]) Calcium [Mass/volume] in Serum or Plasma 9.2 mg/dL 8.5-10.1 [facility] Aspartate aminotransferase [Enzymatic activity/volume] in Serum or Plasma 24 U/L 15-37 [facility] ([facility] ) Total Bilirubin 1.4 mg/dL 0.2-1.0 [facility] ([facility]) NOTE: RESULT VERIFIED. Alanine aminotransferase [Enzymatic activity/volume] in Seru m or Plasma 40 U/L 12-78 [facility] A/G Ratio 1.48 CALC 1.00-1.90 [facility] Albumin [Mass/volume] in Serum or Plasma 4.3 g/dL 3.4-5.0 [facility] ([facility]) Proteinase 3 Ab [Units/volume] in Serum 7.2 g/dL 6.4-8.2 [facility] Glomerular filtration rate/1.73 sq M pre dicted among non-blacks [Volume Rate/Area] in Serum or Plasma by Creatinine-based formula (MDRD) Laboratory test result [facility] Glomerular filtration rate/1.73 sq M pre dicted among blacks [Volume Rate/Area] in Serum or Plasma by Creatinine-based formula (MDRD) Laboratory test result [facility] <content>CHRONIC KIDNEY DISEASE STAGING PER NKF</content>
<content></content>
<content>STAGE I & II GFR >= 60 NORMAL TO MILDLY DECREASED</content>
<content>STAGE III GFR 30-59 MODERATELY DECREASED</content>
<content>STAGE IV GFR 15-29 SEVERELY DECREASED</content>
<content>STAGE V GFR <15 VERY LITTLE GFR LEFT</content>
<content>ESRD GFR <15 ON INSURANCE WRITER</content>
<content></content> ID Date Data Source [id number] 09/15/2020 10:51:00 AM EST [facility] Name Value Range Interpretation Code Description Data Joanie rce(s) Supporting Document(s) Leukocytes [#/volume] in Blood by Automated count 8.0 x10*3/UL 4.1-10 .9 [facility] ([facility]) Erythrocytes [#/volume] in Blood by Automated count 4.93 x10*6/UL 4.2 0-6.30 [facility] ([facility]) Hemoglobin [Mass/volume] in Blood 15.3 g/dL 12.0-18.0 [facility] ([facility]) MCV 90.6 fL 80.0-97.0 [facility] Hematocrit [Volume Fraction] of Blood by Automated count 44.7 % 3 7.0-51.0 [facility] ([facility]) MCH 31.0 pg 26.0-32.0 [facility] ([facility]) MCHC 34.2 g/dL 31.0-38.0 [facility] ([facility]) Erythrocyte distribution width [Ratio] by Automated count 12.7 % 11.6-13.7 [facility] ([facility]) Platelets [#/volume] in Blood by Automated count 217 x10*3/UL 140-440 [facility] ([facility]) Lymph % 17.5 % 10.0-58.5 [facility]) MPV 7.0 FL 7.8-11.0 [facility] ([facility]) Mid % 5.5 % 1.7-9.3 [facility] ([facility]) Lymph # 1.4 x10*3/UL 0.6-4.1 [facility] ([facility]) Neut % 77.0 % 37.0-92.0 [facility] ([facility]) Mid # 0.4 x10*3/UL 0.1-0.6 [facility] ([facility]) Neut # 6.2 x10*3/UL 2.0-7.8 [facility] ([facility]) ID Date Data Source [id number] 09/11/2020 02:56:00 PM EST [facility] ([facility]) Name Value Range Interpretation Code Description Data Joanie rce(s) Supporting Document(s) Laboratory test finding (navigational concept) Laboratory test result [facility] ([facility]) ID Date Data Source [id number] 09/11/2020 11:04:00 AM EST [facility] ([facility]) Name Value Range Interpretation Code Description Data Joanie rce(s) Supporting Document(s) Erythrocyte sedimentation rate by Westergren method Laboratory test result [facility] ([facility]) ID Date Data Source [id number] 09/11/2020 11:00:00 AM EST [facility] ([facility]) Name Value Range Interpretation Code Description Data Joanie rce(s) Supporting Document(s) EKG Laboratory test result [facility] ([facility]) ID Date Data Source [id number] 09/11/2020 10:59:00 AM EST [facility] ([facility]) Name Value Range Interpretation Code Description Data Joanie rce(s) Supporting Document(s) Chest x-ray Laboratory test result [facility] ([facility]) ID Date Data Source [id number] 07/02/2020 03:40:48 PM EST [facility] Name Value Range Interpretation Code Description Data Joanie rce(s) Supporting Document(s) &PDF [facility] [id number]leZGSJVLBDZZuFGpqhWWBqXZMz FcG [file] [id number]pNE20tHHWjDcucheYAZOYP2R1F9HNJ+YikkmF2NTOjCA4BnkWt+PHARMACEUTICAL SALES [file] RkZTI+WZ2kLUa+Rj0Vz8OacdO1hyQmKEtzNIrzSX0BISPKW9MUBb== ID Date Data Source [id number] 03/30/2020 11:05:00 AM EDT [facility] ([facility]) Name Value Range Interpretation Code Description Data Joanie rce(s) Supporting Document(s) Urea nitrogen [Mass/volume] in Serum or Plasma 17 mg/dL 7-18 [facility] ([facility]) Glucose [Mass/volume] in Serum or Plasma 101 mg/dL 74-99 [facility] 100-125 mg/dL PRE-DIABETES/FASTING >126 mg/dL DIABETES/FASTING Creatinine 0.8 mg/dL 0.6-1.3 [facility] ([facility]) Potassium [Moles/volume] in Serum or Plasma 4.3 meq/L 3.5-5.1 [facility] ([facility]) Sodium [Moles/volume] in Serum or Plasma 144 meq/L 136-145 [facility] Calcium [Mass/volume] in Serum or Plasma 9.1 mg/dL 8.5-10.1 [facility] Carbon dioxide, total [Moles/volume] in Serum or Plasma 32 meq/L 21 -32 [facility] ([facility]) Chloride [Moles/volume] in Serum or Plasma 104 meq/L 98-107 [facility] ([facility]) Aspartate aminotransferase [Enzymatic activity/volume] in Serum or Plasma 18 U/L 15-37 [facility] Total Bilirubin 0.6 mg/dL 0.2-1.0 [facility] ([facility]) Alkaline phosphatase isoenzyme [Units/volume] in Serum or Pl asma 82 mg/dL 46-116 [facility] ([facility]) Proteinase 3 Ab [Units/volume] in Serum 7.2 g/dL 6.4-8.2 [facility] ([facility]) Alanine aminotransferase [Enzymatic activity/volume] in Seru m or Plasma 28 U/L 12-78 [facility] ([facility]) Albumin [Mass/volume] in Serum or Plasma 3.8 g/dL 3.4-5.0 [facility] Glomerular filtration rate/1.73 sq M pre dicted among non-blacks [Volume Rate/Area] in Serum or Plasma by Creatinine-based formula (MDRD) Laboratory test result [facility] ([facility] ) A/G Ratio 1.12 CALC 1.00-1.90 [facility] ([facility]) Glomerular filtration rate/1.73 sq M pre dicted among blacks [Volume Rate/Area] in Serum or Plasma by Creatinine-based formula (MDRD) Laboratory test result [facility] <content>CHRONIC KIDNEY DISEASE STAGING PER NKF</content>
<content></content>
<content>STAGE I & II GFR >= 60 NORMAL TO MILDLY DECREASED</content>
<content>STAGE III GFR 30-59 MODERATELY DECREASED</content>
<content>STAGE IV GFR 15-29 SEVERELY DECREASED</content>
<content>STAGE V GFR <15 VERY LITTLE GFR LEFT</content>
<content>ESRD GFR <15 ON INSURANCE WRITER</content>
<content></content> ID Date Data Source [id number] 03/30/2020 11:05:00 AM EDT [facility] Name Value Range Interpretation Code Description Data Joanie rce(s) Supporting Document(s) Leukocytes [#/volume] in Blood by Automated count 8.1 x10*3/UL 4.1-10 .9 [facility] Hematocrit [Volume Fraction] of Blood by Automated count 44.0 % 3 7.0-51.0 [facility] Erythrocytes [#/volume] in Blood by Automated count 4.90 x10*6/UL 4.2 0-6.30 [facility] Hemoglobin [Mass/volume] in Blood 14.9 g/dL 12.0-18.0 [facility] ([facility]) MCH 30.4 pg 26.0-32.0 [facility] MCV 89.8 fL 80.0-97.0 [facility] ([facility]) MCHC 33.9 g/dL 31.0-38.0 [facility] ([facility]) Platelets [#/volume] in Blood by Automated count 255 x10*3/UL 140-440 [facility]) MPV 7.8 FL 7.8-11.0 [facility] Erythrocyte distribution width [Ratio] by Automated count 13.0 % 11.6-13.7 [facility] ([facility]) Lymph % 18.6 % 10.0-58.5 [facility] Mid % 6.0 % 1.7-9.3 [facility] Neut % 75.4 % 37.0-92.0 [facility] ([facility]) Mid # 0.5 x10*3/UL 0.1-0.6 [facility] ([facility]) Lymph # 1.5 x10*3/UL 0.6-4.1 [facility] ([facility]) Neut # 6.1 x10*3/UL 2.0-7.8 [facility] ([facility]) ID Date Data Source [id number] 03/30/2020 11:05:00 AM EDT [facility] ([facility]) Name Value Range Interpretation Code Description Data Joanie rce(s) Supporting Document(s) Thyrotropin [Units/volume] in Serum or Plasma by Detec tion limit <= 0.05 mIU/L 0.79 uIU/mL 0.36-3.74 [facility] ([facility] ) ID Date Data Source [id number] 03/30/2020 11:05:00 AM EDT [facility] ([facility]) Name Value Range Interpretation Code Description Data Joanie rce(s) Supporting Document(s) Cholesterol [Mass/volume] in Serum or Plasma 206 mg/dL 131-200 [facility] ([facility]) Cholesterol in LDL [Mass/volume] in Serum or Plasma by calcu lation 115 CALC 50-159 [facility] ([facility]) Triglyceride [Mass/volume] in Serum or Plasma 185 mg/dL 30-150 [facility] ([facility]) Cholesterol in HDL [Mass/volume] in Serum or Plasma 54 mg/dL 35-60 [facility] ([facility]) ID Date Data Source [id number] 12/16/2019 12:44:00 PM EDT [facility] ([facility] Name Value Range Interpretation Code Description Data Joanie rce(s) Supporting Document(s) Prostate specific Ag [Mass/volume] in Serum or Plasma 0.05 ng/mL [facility] ([facility]) The PSA assay is performed on the GBooking analyzer by LOCI sandwich chemiluminescent immunoassay and should not be compared interchangeably with other methods. It should not be used alone as a screening test or diagnosis for the presence or absence of malignant disease. Predictions of disease recurrence should not be based solely on values obtained from serial patient serum values. Prostate specific Ag [Mass/volume] in Serum or Plasma 0.5 [facility] ([facility]) ID Date Data Source [id number] 12/10/2019 08:19:00 AM EDT [facility] ([facility], ) Name Value Range Interpretation Code Description Data Joanie rce(s) Supporting Document(s) PDFReport SEE IMAGE [facility] ([facility], ) FVC-Pre 1.96 L [facility] ([facility], ) FVC-%Pred-Pre 46 L [facility] ([facility], ) FVC-Pred 4.18 L [facility] ([facility], ) Fev1-Pred 3.13 L [facility] ([facility]) Fev1-Pre 1.24 L [facility] ([facility]) FVC-LLN 3.32 L [facility] ([facility]) Fev1-%Pred-Pre 39 L [facility] ([facility]) Fev1-LLN 2.41 L [facility] ([facility]) Fev6-Pred 3.96 L [facility] ([facility], ) Fev6-LLN 3.13 L [facility] ([facility]) Fev6-Pre 1.96 L [facility] ([facility]) Xrx0snd-Dhqi 75 % [facility] ([facility], ) Fev6-%Pred-Pre 49 L [facility] ([facility], ) Gtm1gtq-%Pred-Pre 84 % [facility] ([facility]) Bqj9wgo-VHJ 65 % [facility] ([facility]) Rgq2rdu-Pgp 63 % [facility] ([facility]) Rpq0wym-Ohxz 95 % [facility] ([facility]) Ugb9plu-%Pred-Pre 105 % [facility] ([facility]) Hny9qlg-Ysg 100 % [facility] ([facility]) FEFMax-Pre 3.71 L/E/sec [facility] ([facility]) FEFMax-Pred 8.33 L/E/sec [facility] ([facility]) FEFMax-%Pred-Pre 44 L/E/sec [facility] ([facility]) Rzj1771-Pco 0.71 L/E/sec [facility] ([facility]) Pzh1231-Gfwz 2.55 L/E/sec [facility] ([facility]) FEFMax-LLN 6.20 L/E/sec [facility] ([facility]) Zwf5017-%Pred-Pre 27 L/E/sec [facility] ([facility]) Rjb8601-FBV 1.08 L/E/sec [facility] ([facility]) ExpTime-Pre 5.97 sec [facility] ([facility]) Vqn7rfs0-Bsky 79 % [facility] ([facility]) Pff7sgq2-%Pred-Pre 80 % [facility] ([facility]) Pph1fyw2-Egk 63 % [facility] ([facility]) Ylp2rpi2-MVG 70 % [facility] ([facility]) Procedure Social History Code Duration Value Status Description Data Source(s ) Alcohol intake 07/02/2020 12:00:00 AM EST Yes completed [facility] Smoking 07/02/2020 12:00:00 AM EST Never smoker completed Never s moker [facility] Smoking 06/11/2020 12:00:00 AM EDT Patient has never smoked co mpleted Patient has never smoked [facility] ([facility], ) Smoking 12/24/2019 12:00:00 AM EDT Never Smoked Cigarettes com pleted Never Smoked Cigarettes [facility] ([facility] [place]) Vital Signs ID Date Data Source [id number] Name Value Range Interpretation Code Description Data Source(s) Body mass index (BMI) [Ratio] 28.7 kg/m2 28.7 k g/m2 [facility] ([facility]) Oxygen saturation in Arterial blood by Pulse oximetry --post exerci se 96 % 96 % [facility] ([facility]) RM Air Body weight 189.00 [lb_av] 189.00 [lb_av] [facility] ([facility]) Body height 68 [in_i] 68 [in_i] [facility] ([facility]) 5'8" Heart rate 65 /min 65 /min [facility] ([facility]) Diastolic blood pressure 72 mm[Hg] 72 mm[Hg] [facility] ([facility]) RT Arm Systolic blood pressure 144 mm[Hg] 144 mm[Hg] M [facility] ([facility]) RT Arm Body mass index (BMI) [Ratio] 28.74 kg/m2 28.74 kg/m2 [facility] Body weight 85.73 kg 85.73 kg [facility] Body height 172.7 cm 172.7 cm [facility] Respiratory rate 16 /min 16 /min [facility] Heart rate 64 /min 64 /min [facility] Diastolic blood pressure 80 mm[Hg] 80 mm[Hg] [facility] Systolic blood pressure 136 mm[Hg] 136 mm[Hg] [facility] Body temperature 96.5 [degF] 96.5 [degF] [facility] ([facility] Body weight 83.462 kg 83.462 kg [facility] ([facility], ) [place] body weight 148 [lb_av] 148 [lb_av] [facility] T ([facility], ) Body mass index (BMI) [Ratio] 28.8 kg/m2 28.8 k g/m2 [facility] ([facility], ) Body weight 184.00 [lb_av] 184.00 [lb_av] [facility] ([facility]) Body height 67 [in_i] 67 [in_i] [facility] ([facility], ) 5'7" Oxygen saturation in Arterial blood by Pulse oximetry 96 % 96 % [facility] ([facility], ) Room Air Heart rate 80 /min 80 /min [facility] ([facility], ) Diastolic blood pressure 70 mm[Hg] 70 mm[Hg] [facility] ([facility], ) Systolic blood pressure 118 mm[Hg] 118 mm[Hg] [facility] ([facility]) Body mass index (BMI) [Ratio] 27.4 kg/m2 27.4 k g/m2 [facility] ([facility]) Body weight 180.00 [lb_av] 180.00 [lb_av] [facility] ([facility]) Body height 68 [in_i] 68 [in_i] [facility] ([facility]) 5'8" Body mass index (BMI) [Ratio] 28.1 kg/m2 28.1 k g/m2 [facility] Oxygen saturation in Arterial blood by Pulse oximetry 96 % 96 % [facility] ([facility]) RM Air Body weight 185.00 [lb_av] 185.00 [lb_av] [facility] ([facility]) Body height 68 [in_i] 68 [in_i] [facility] ([facility]) 5'8" Heart rate 64 /min 64 /min [facility] Diastolic blood pressure 70 mm[Hg] 70 mm[Hg] [facility] Systolic blood pressure 130 mm[Hg] 130 mm[facility]Hg] [facility] Body weight 84.370 kg 84.370 kg [facility] [place] body weight 148 [lb_av] 148 [lb_av] [facility] ([facility]) Body mass index (BMI) [Ratio] 29.1 kg/m2 29.1 k g/m2 [facility] ([facility], ) Body weight 186.00 [lb_av] 186.00 [lb_av] LEILANI T ([facility], ) Body height 67 [in_i] 67 [in_i] [facility] ([facility], ) 5'7" Oxygen saturation in Arterial blood by Pulse oximetry 97 % 97 % [facility] ([facility], ) Room Air Heart rate 44 /min 44 /min [facility] ([facility], ) Diastolic blood pressure 70 mm[Hg] 70 mm[Hg] [facility] ([facility], ) Systolic blood pressure 120 mm[Hg] 120 mm[Hg] M RADHA ([facility], ) Patient Treatment Plan of Care Planned Activity Planned Date Details Description Data Source (s) atorvastatin 20 MG Oral Tablet 05/18/2020 12:00:00 AM EDT [facility] 8 HR Acetaminophen 650 MG Extended Release Oral Tablet [Mapap] 04/29/2020 12:00:00 AM EDT [facility] 30 ACTUAT fluticasone furoate 0.2 MG/ACT UAT / vilanterol 0.025 MG/ACTUAT Dry Powder Inhaler [Breo] 04/28/2020 12:00:00 AM EDT [facility]
[2020-09-22 06:44] LABS: HEMATOCRIT 39.8 % (42.0-52.0); HEMOGLOBIN 13.2 g/dl (13.5-17.5); MEAN CORPUSCULAR HEMOGLOBIN 30.8 pg (27.0-33.0); MEAN CORPUSCULAR HGB CONC 33.2 g/dl (32.0-36.5); PLATELET COUNT, AUTOMATED 207 10^3/uL (150-450); RED BLOOD COUNT 4.28 10^6/uL (4.30-6.10); WHITE BLOOD COUNT 18.5 10^3/uL (4.0-10.0)
[2020-09-22 07:11] LABS: ALBUMIN 3.8 GM/DL (3.2-5.2); ALT/SGPT 46 U/L (12-78); BLOOD UREA NITROGEN 17 MG/DL (7-18); CALCIUM LEVEL 8.9 MG/DL (8.8-10.2); CARBON DIOXIDE LEVEL 28 MEQ/L (21-32); CHLORIDE LEVEL 101 MEQ/L (98-107); CREATININE FOR GFR 0.88 MG/DL (0.70-1.30); GLOMERULAR FILTRATION RATE > 60.0 (>49); GLUCOSE, FASTING 143 MG/DL (70-100); POTASSIUM SERUM 4.6 MEQ/L (3.5-5.1); SODIUM LEVEL 137 MEQ/L (136-145); TOTAL PROTEIN 6.5 GM/DL (6.4-8.2)
[2020-09-22] MEDS: ASPIRIN 81 MG ENTERIC TAB PO SCH (08:14)
[2020-09-22] MEDS: ceFAZolin SOD 2 GM in IV 1 EA IV SCH ×2 (08:14→14:05)
[2020-09-22] MEDS: PERCOCET 5MG/325MG TAB PO PRN ×2 (08:25→15:32)
[2020-09-22] MEDS ORDERED: MOM 30ML SUSPENSION UDC PO SCH (09:00)
[2020-09-22] MEDS ORDERED: MIRALAX *UNIT DOSE* 17GM PACKET PO SCH (09:00)
[2020-09-22 10:00] VITALS: BP 175/83
== END 2020-09-22 15:35 | disposition home or self-care (01) | DRG 302 ==
LOC: M SDC 11:24 → M MS5PR 18:50
PROVIDERS: ADMIT Orthopaedic Surgery; ATTEND Orthopaedic Surgery
PROC: 0SRC0J9 Replacement of Right Knee Joint with Synthetic Substitute, Cemented, Open Approach (ICD-10-PCS; principal; 2020-09-21 16:45)
DX: M17.11 Unilateral primary osteoarthritis, right knee (principal); F32.9 Major depressive disorder, single episode, unspecified; J45.909 Unspecified asthma, uncomplicated; E78.5 Hyperlipidemia, unspecified; Z85.46 Personal history of malignant neoplasm of prostate; Z79.82 Long term (current) use of aspirin; Z79.899 Other long term (current) drug therapy

== ENCOUNTER → 2020-09-30 | Outpatient (REF) | payer OTHER, BC ==
[~2020-09-30] MED LIST changes: +ACET650T3 PO; -ACETAMINOPHEN 500 MG TAB PO ONE; +ASPI81TA26 PO; +ECOT81TA5 PO; -LR 1,000 ML IV ONE; -MIDAZOLAM INJ 2MG/2ML VIAL (J2250 PER 1MG) IV PRN; +MONT10TA10 PO; -MONT5TAB2 PO; +PERC5TAB12 PO; -ceFAZolin SOD 2 GM in IV 1 EA IV ONE; -fentaNYL 100 MCG/2 ML INJECTION (J3010) IV PRN
== END ==
LOC: M LAB REF 11:29
PROVIDERS: ATTEND Internal Medicine
DX: L03.115 Cellulitis of right lower limb (principal)

== ENCOUNTER → 2020-10-01 | Outpatient (CLI) | payer BC, OTHER ==
[2020-10-01 15:30] LABS: BASO % 0.4 % (0.0-1.0); EOS # 0.1 10^3/uL (0.0-0.5); EOS % 1.2 % (0.0-3.0); HEMATOCRIT 36.8 % (42.0-52.0); LYMPH # 1.8 10^3/uL (1.5-5.0); LYMPH % 17.5 % (24.0-44.0); MEAN CORPUSCULAR HEMOGLOBIN 30.9 pg (27.0-33.0); MEAN CORPUSCULAR HGB CONC 32.6 g/dl (32.0-36.5); MEAN CORPUSCULAR VOLUME 94.8 fl (80.0-96.0); MONO # 0.8 10^3/uL (0.0-0.8); MONO % 8.3 % (0.0-5.0); NEUTROPHILS # 7.1 10^3/uL (1.5-8.5); NEUTROPHILS % 71.2 % (36.0-66.0); PLATELET COUNT, AUTOMATED 387 10^3/uL (150-450); RED BLOOD COUNT 3.88 10^6/uL (4.30-6.10)
[2020-10-01 16:07] LABS: ERYTHROCYTE SEDIMENTATION RATE 37 mm/hr (0-20)
== END ==
LOC: M LAB 14:35
PROVIDERS: ATTEND Orthopaedic Surgery
DX: Z47.89 Encounter for other orthopedic aftercare (principal)

== ENCOUNTER → 2021-12-13 | Outpatient (CLI) | payer BC, OTHER ==
[~2021-12-13] MED LIST changes: -ACET-838 PO; +ACET32TAB PO; -MONT10TA10 PO; +MONT10TA97 PO
== END ==
LOC: M WUC 10:00
PROVIDERS: ATTEND Urology
DX: Z85.46 Personal history of malignant neoplasm of prostate (principal)

== ENCOUNTER → 2022-08-24 | Outpatient (REF) | payer MEDICARE, BC, OTHER ==
[~2022-08-24] MED LIST changes: -GOOD81CH2 PO; +RA A81CH3 PO
== END ==
LOC: M LABDRAWC 17:07
PROVIDERS: ATTEND Urology
DX: C61 Malignant neoplasm of prostate (principal); R97.20 Elevated prostate specific antigen [PSA]

== ENCOUNTER → 2023-01-03 | Outpatient (CLI) | payer MEDICARE, BC, OTHER | LOC: M PLAIMG 09:16 | PROVIDERS: ATTEND Internal Medicine Pulmonary Disease | DX: J45.40 Moderate persistent asthma, uncomplicated (principal) ==

== ENCOUNTER → 2023-01-09 | Outpatient (REF) | payer MEDICARE, BC, OTHER ==
[2023-01-09 19:39] LABS: ALBUMIN 3.9 G/DL (3.2-5.2); ALKALINE PHOSPHATASE 67 U/L (46-116); ALT/SGPT 34 U/L (7.0-40); AST/SGOT 22 U/L (<34); BILIRUBIN,TOTAL 0.9 MG/DL (0.3-1.2); BLOOD UREA NITROGEN 21 MG/DL (9-23); CALCIUM LEVEL 9.2 MG/DL (8.3-10.6); CARBON DIOXIDE LEVEL 32 MMOL/L (20-31); CHLORIDE LEVEL 103 MMOL/L (98-107); CHOLESTEROL LEVEL 139 MG/DL (<200); CHOLESTEROL RISK RATIO 1.99 (<5); CREATININE FOR GFR 0.87 MG/DL (0.70-1.30); GLOMERULAR FILTRATION RATE > 60.0 (>49); GLUCOSE, FASTING 158 MG/DL (74-106); HDL CHOLESTEROL 69.6 MG/DL (>40); NON-HDL-C 69.4 MG/DL; POTASSIUM SERUM 3.9 MMOL/L (3.5-5.1); SODIUM LEVEL 140 MMOL/L (136-145); TOTAL PROTEIN 6.3 G/DL (5.7-8.2); TRIGLYCERIDES LEVEL 177 MG/DL (<150)
== END ==
LOC: M LABDRAWC 18:28
PROVIDERS: ATTEND Nurse Practitioner Family
DX: E78.2 Mixed hyperlipidemia (principal); R06.02 Shortness of breath

== ENCOUNTER → 2023-05-30 | Outpatient (REF) | payer MEDICARE, BC, OTHER ==
[~2023-05-30] MED LIST changes: +ASPI-663 PO; -RA A81CH3 PO
== END ==
LOC: M LAB REF 11:34
PROVIDERS: ATTEND Physician Assistant
DX: B34.9 Viral infection, unspecified (principal)

== ENCOUNTER → 2023-06-05 | Outpatient (REF) | payer MEDICARE, BC, OTHER | LOC: M LABDRAWC 17:18 | PROVIDERS: ATTEND Urology | DX: C61 Malignant neoplasm of prostate (principal) ==

== ENCOUNTER → 2023-10-26 | Outpatient (REF) | payer MEDICARE, OTHER | LOC: M LAB REF 11:46 | PROVIDERS: ATTEND Internal Medicine | DX: M25.50 Pain in unspecified joint (principal) ==

== ENCOUNTER → 2024-04-24 | Outpatient (REF) | payer MEDICARE, OTHER | LOC: M LABDRAWC 11:45 | PROVIDERS: ATTEND Urology | DX: C61 Malignant neoplasm of prostate (principal) ==